=== PATIENT | female | born 1940 | race Caucasian/White ===

== ENCOUNTER 2019-02-15 12:46 | Outpatient (CLI) | payer MEDICARE, BC ==
--- NOTE | 2019-02-15 16:10 | XRAY Report ---
Reason: PAIN IN RIGHT ANKLE AND JOINT OF FOOT Procedure Date: 02/15/2019 Accession Number: [id number] / [id number] Procedure: XRN - Foot 3 View RT CPT Code: FULL RESULT: EXAM: RIGHT FOOT RADIOGRAPHY EXAM DATE: 02/15/2019 01:14 PM. CLINICAL HISTORY: Pain in right ankle and joint of foot. COMPARISON: None. TECHNIQUE: 3 views. FINDINGS: Bones: Mild inferior calcaneal spurring is noted. No fractures or bone lesions. Joints: There is mild joint space narrowing of the first metatarsophalangeal articulation. No subluxation. Soft Tissues: Normal. No soft tissue swelling. IMPRESSION: Normal foot radiography. RADIA
--- NOTE | 2019-02-15 16:15 | XRAY Report ---
Reason: PAIN IN RIGHT ANKLE AND JOINT OF FOOT Procedure Date: 02/15/2019 Accession Number: [id number] / [id number] Procedure: XRN - Ankle 3 View RT CPT Code: FULL RESULT: EXAM: RIGHT ANKLE RADIOGRAPHY EXAM DATE: 02/15/2019 01:18 PM. CLINICAL HISTORY: PAIN IN RIGHT ANKLE AND JOINT OF FOOT. COMPARISON: FOOT 3 VIEW RT 02/15/2019 1:14 PM. TECHNIQUE: 3 views. FINDINGS: Bones: Mild inferior calcaneal spurring. No fractures or bone lesions. Joints: Normal. No effusion. No subluxations. The ankle mortise is normally aligned. Soft Tissues: Normal. No soft tissue swelling. IMPRESSION: No acute fracture or dislocation of the ankle. RADIA
== END 2019-02-15 12:47 | disposition home or self-care (01) ==
LOC: DI.N 12:46
PROVIDERS: ATTEND Family Medicine
DX: M25.571 Pain in right ankle and joints of right foot (principal)

== ENCOUNTER 2020-05-18 14:12 | Outpatient (CLI) | payer MEDICARE, BC | END 2020-05-18 14:13 | disposition critical access hospital (66) | LOC: EMS 14:12 | PROVIDERS: ATTEND Surgery | DX: M54.9 Dorsalgia, unspecified (principal); M79.605 Pain in left leg | CPT/HCPCS: A0425; A0429 ==

== ENCOUNTER 2020-05-18 14:34 | Emergency (ER) | payer MEDICARE, BC ==
[2020-05-18] MEDS ORDERED: KETOROLAC 60 MG/2 ML VIAL IM STA (15:56)
--- NOTE | 2020-05-18 15:59 | ED Physician Documentation ---
History of Present Illness - Stated complaint Stated Complaint: SCIATICA - Chief complaint Chief Complaint: Back Pain - Additonal information Additional information: 79-year-old female comes emergency department for evaluation of what she calls her sciatica pain. For the last 3 days that she has been having pain that originates in her left knee and radiates up the back and down the leg. She says that this is a typical presentation of sciatica for her. Her primary care provider has prescribed tramadol which she has been using but has found no relief. She is having increasing difficulty walking and is now using a cane to walk. She denies any recent falls or trauma. No saddle anesthesia. No history of spinal instrumentation. No history of blood clots or cancer. She denies any urinary symptoms bowel or bladder incontinence. She states that she has had multiple x-rays of her spine that show significant arthritis. She also says that she has arthritis in her knees and ankles as well. She is a morbidly obese woman at baseline. Review of Systems Constitutional: reports: Reviewed and negative Ears: reports: Reviewed and negative Nose: reports: Reviewed and negative Throat: reports: Reviewed and negative Cardiac: reports: Reviewed and negative GI: reports: Reviewed and negative : reports: Reviewed and negative Skin: reports: Reviewed and negative Musculoskeletal: reports: Back pain, Extremity pain Neurologic: reports: Reviewed and negative Psychiatric: reports: Reviewed and negative PD PAST MEDICAL HISTORY - Present Medications Home Medications: Ambulatory Orders Medication Instructions Recorded Confirmed Lovastatin 05/18/20 Omeprazole 40 mg PO DAILY 05/18/20 05/18/20 predniSONE [Deltasone] 40 mg PO DAILY #8 tab 05/18/20 traMADol [Ultram] 50 mg PO QID 05/18/20 05/18/20 - Allergies Allergies/Adverse Reactions: Allergies Allergy/AdvReac Type Severity Reaction Status Date / Time meperidine [From Demerol] Allergy Cramps Verified 05/18/20 14:37 PD ED PE EXPANDED - General General: Alert, No acute distress, Other (morbid obesity) - Neck Neck: Supple w/out meningeal sx. No: Adenopathy - Back Back: Soft tissue tenderness (left lower paraspinous . difficult exam secondary to body habitus), Other (Antalgic gait. Using a cane to ambulate but it is unassisted.). No: Vertebral tenderness - Derm Derm: Normal color. No: Rash - Extremities Extremities: Left knee (Normal flexion and extension without laxity. No pain on passive range of motion. Some pain when ambulating using a cane.) - Neuro Neuro: Alert and Oriented X 3, CNII-XII intact Results - Vitals Vitals: Vital Signs - 24 hr 05/18/20 14:38 Temperature 37.0 C Heart Rate 77 Respiratory 19 Rate Blood Pressure 134/101 H O2 Saturation 100 Oxygen O2 Source Room air - Rads (name of study) left knee Radiology: Final report received (no acute findings) PD MEDICAL DECISION MAKING - ED course Complexity details: reviewed results, re-evaluated patient, considered differential, d/w patient ED course: 79-year-old female presents to the emergency department for evaluation of left knee pain that radiates both down the leg and up to her low back. She describes this as sciatica and has presented in this way in the past. She has no red flags for back pain. She is quite ambulatory here in the emergency department using a walker. She was given an injection of Toradol with moderate relief of pain. My suspicion however is that she likely does have a musculoskeletal sciatica component versus developing arthritis in the left knee. She is quite an obese woman. There is no indication for lumbar imaging today in the emergency department. No midline spinous process pain was elicited. She has no red flags I will prescribe her prednisone to be taken for the next 4 days. While she is taking this she is to avoid any other NSAID use. She may continue to take the Tylenol at home and alternate with tramadol. She reports that she has very close follow-up with her primary care provider next week. Emergent return p recautions were discussed Departure - Departure Disposition: Home, Self Care Clinical Impression: Left knee pain Left low back pain Qualifiers: Chronicity: acute Sciatica presence: unspecified whether sciatica present Qualified Code(s): M54.5 - Low back pain Condition: Stable Record reviewed to determine appropriate education?: Yes Follow-Up: Montse Guerra MD [Primary Care Provider] - Prescriptions: predniSONE [Deltasone] 40 mg PO DAILY #8 tab Comments: Tony you may have both a component of left knee arthritis as well as sciatica. Please fill the prescription for the prednisone and take daily for 4 days. While taking the prednisone do not take another NSAID medication like Aleve naproxen or ibuprofen. You may continue to alternate the Tylenol and tramadol at home. Please continue to follow-up next week with your primary care doctor as already scheduled.
--- NOTE | 2020-05-18 16:29 | XRAY Report ---
PROCEDURE: Knee 2 View LT INDICATIONS: pain in k nee TECHNIQUE: 2 views of the left knee(s) were acquired. COMPARISON: None. FINDINGS: Bones: No fractures or dislocations. No suspicious bony lesions. Soft tissues: No joint effusion. No suspicious soft tissue calcifications. IMPRESSION: No trauma found. No effusion identified. Reviewed by: Pantera Rand MD on 05/18/2020 4:28 PM [facility] Approved by: Pantera Rand MD on 05/18/2020 4:28 PM [facility] Station ID: [id number]
[2020-05-18 17:19] VITALS: BP 134/98
== END 2020-05-18 17:19 | disposition home or self-care (01) ==
LOC: EDUNIT# → ED 14:34
DX: M25.562 Pain in left knee (principal); M54.5 Low back pain; E66.9 Obesity, unspecified
CPT/HCPCS: 96372; 99283; 99284

== ENCOUNTER 2020-10-09 16:41 | Outpatient (CLI) | payer MEDICARE, BC | END 2020-10-09 16:42 | disposition home or self-care (01) | LOC: COV 16:41 | PROVIDERS: ATTEND Ophthalmology | DX: Z01.812 Encounter for preprocedural laboratory examination (principal); H25.811 Combined forms of age-related cataract, right eye; E11.9 Type 2 diabetes mellitus without complications; Z20.822 Contact with and (suspected) exposure to COVID-19 ==

== ENCOUNTER 2020-10-12 06:21 | Day surgery (SDC) | payer MEDICARE, BC ==
[2020-10-12] MEDS ORDERED: PROPARACAINE 0.5% OPHTH DROPS 15 ML ONE (06:23)
[2020-10-12] MEDS ORDERED: PHENYLEPHRINE 2.5% OPHTH 2 ML DROPS ONE (06:23)
[2020-10-12] MEDS ORDERED: KETOROLAC 0.45% OPHTH DROPS ONE (06:23)
[2020-10-12] MEDS ORDERED: LACTATED RINGERS 500 ML IV ONE ×2 (06:28→08:01)
[2020-10-12] MEDS ORDERED: CYCLOPENTOLATE 2% OPHTH DROPS 2 ML RIGHTEYE ONE (06:39)
[2020-10-12] MEDS ORDERED: TRIAMCIN/MOXIFLOX OPHTHALMIC 0.6 ML VIAL IO ONE ×2 (07:10→07:49)
[2020-10-12] MEDS ORDERED: BSS/LIDOCAINE/EPINEPHRINE 1 ML SYRINGE ONE (07:10)
[2020-10-12] MEDS ORDERED: BRIMONIDINE 0.2% OPHTH DROPS 5 ML ONE (07:10)
[2020-10-12] MEDS ORDERED: TIMOLOL 0.5% OPHTH DROPS ONE (07:10)
[2020-10-12] MEDS ORDERED: VANCOMYCIN OPHTHALMI 8MG/0.8ML 8 MG/0.8 ML SYRINGE IO ONE ×2 (07:10→07:49)
[2020-10-12] MEDS ORDERED: EPINEPHrine 1 MG/ML AMP ONE (07:10)
--- NOTE | 2020-10-12 07:27 | ANESTHESIA ---
Pre-Anesthesia VS, & Labs - Diagnosis right eye senile combined cataract - Procedure right eye cataract extraction with IOL Vital Signs: Temp Pulse Resp BP Pulse Ox 36.9 C 77 13 145/72 H 97 10/12/20 06:46 10/12/20 06:46 10/12/20 06:46 10/12/20 06:46 10/12/20 06:46 Height: 5 ft 2 in Weight (kg): 98.9 kg Body Mass Index: 39.9 BMI Classification: Obese - NPO >8 hours - Is Patient ?: No - Lab Results Current Lab Results: Laboratory Tests 10/12/20 06:45: POC Whole Bld Glucose 128 H Home Medications and Allergies Home Medications: Ambulatory Orders Levothyroxine [Synthroid] 0.25 mcg PO DAILY 10/11/20 Losartan [Cozaar] 50 mg PO DAILY 10/11/20 buPROPion [Wellbutrin Sr] 100 mg PO DAILY 10/11/20 metFORMIN [Glucophage] 500 mg PO DAILY 10/11/20 Lovastatin 10 mg PO DAILY 05/18/20 Omeprazole 40 mg PO DAILY 05/18/20 Levothyroxine [Synthroid] 0.25 mcg PO DAILY 10/11/20 Losartan [Cozaar] 50 mg PO DAILY 10/11/20 buPROPion [Wellbutrin Sr] 100 mg PO DAILY 10/11/20 metFORMIN [Glucophage] 500 mg PO DAILY 10/11/20 Allergies/Adverse Reactions: Allergies Allergy/AdvReac Type Severity Reaction Status Date / Time meperidine [From Demerol] Allergy Cramps Verified 05/18/20 14:37 Anes History & Medical History - Anesthetic History Anesthesia Complications: reports: No previous complications - Medical History Cardiovascular: reports: None Pulmonary: reports: None Gastrointestinal: reports: GERD Urinary: reports: None Neuro: reports: None Musculoskeletal: reports: Osteoarthritis, Chronic back pain Endocrine/Autoimmune: reports: HyPOthyroidism Blood Disorders: reports: None Skin: reports: None Smoking Status: Never smoker Psychosocial: reports: No issues indicated History of Cancer?: No - Surgical History General: reports: Appendectomy Eyes Ears Nose Throat (EENT): reports: Tonsil/Adenoidectomy Gynecologic: reports: Tubal ligation, Hysterectomy Exam General: Alert, Oriented x3, Cooperative, No acute distress Dental: WNL Mouth Openin Fingerbreadth Neck Mobility: Normal Mallampati classification: III Thyromental Distance: less than 4 cm Respiratory: Lungs clear, Normal breath sounds, No respiratory distress, No accessory muscle use Cardiovascular: Regular rate, Normal S1, Normal S2, No murmurs Mental/Cognitive Status: Alert/Oriented X3, Normal for patient Plan Anesthesia Type: MAC Consent for Procedure(s) Verified and Reviewed: Yes Code Status: Attempt Resuscitation ASA classification: 2-Mild systemic disease Is this case an emergency?: No
[2020-10-12] MEDS ORDERED: MIDAZOLAM 2 MG/2 ML VIAL ONE (07:37)
[2020-10-12] MEDS ORDERED: BRIMONIDINE 0.2% OPHTH DROPS 5 ML OPTH ONE (07:47)
[2020-10-12] MEDS ORDERED: TIMOLOL 0.5% OPHTH DROPS OPTH ONE (07:48)
[2020-10-12] MEDS ORDERED: EPINEPHrine 1 MG/ML AMP IR ONE (07:48)
[2020-10-12] MEDS ORDERED: BSS/LIDOCAINE/EPINEPHRINE 1 ML SYRINGE IO ONE (07:48)
[2020-10-12] MEDS ORDERED: CHONDR SULF/HYALURONATE SYRINGE IO ONE (07:48)
[2020-10-12] MEDS ORDERED: PROPARACAINE 0.5% OPHTH DROPS 15 ML EACHEYE ONE (07:49)
[2020-10-12 08:12] VITALS: BP 152/64
--- NOTE | 2020-10-12 08:16 | OPERATIVE REPORT ---
Operative Report - Other Other Information/Narrative: Date of Surgery: 10/12/20 Preop Dx: Visually significant cataract right eye. This was the first cataract surgery. Postop Dx: Same Procedure: Phacoemulsification with posterior chamber intraocular lens implant right eye Surgeon: Dr. Petros Lawson Anesthesia: Monitored anesthesia care Complications: None Operative Indications: This is a 80-year-old F with progressive vision loss in the right eye due to 2+ nuclear sclerotic and 3+ cortical cataract. Best corrected visual acuity was 20/30 with glare to 20/800 vision in the right eye. Indications for surgery were: - Overall decrease in vision - Difficulty seeing words, closed captions, or game scores on TV - Difficulty seeing street signs - Difficulty driving at night because of headlights from other vehicles - Difficulty with glare or bright lights in any situation The patient was consented at length concerning the risks and benefits of cataract surgery after which the patient expressed a desire to proceed with surgery. Operative Procedure: The patient was taken into OR#3 and placed under monitored anesthesia care. A surgical time-out was conducted confirming correct patient, correct procedure, and correct surgical site. The patient was given topical anesthesia and then prepped and draped in the usual sterile fashion. The eye was entered at the 6 and 3 oclock positions. Intracameral Shugarcaine was injected into the anterior chamber followed by a dispersive viscoelastic. A continuous-tear curvilinear capsulorhexis was performed. The nucleus was hydrodissected and phacoemulsified. The cortex was evacuated using automated infusion and aspiration. A cohesive viscoelastic was injected into the capsular bag and a 23.5 diopter intraocular lens was inserted into the bag. Infusion and aspiration were used to evacuate the viscoelastic materials from the eye. The wounds were hydrated and the eye inflated to physiologic pressure using balanced salt solution. Approximately 0.25ml of a mixture of triamcinolone and moxifloxacin was injected trans-sclerally into the vitreous in the inferotemporal quadrant using a 30 gauge cannula. An additional 0.55ml of a mixture of triamcinolone, moxifloxacin, and vancomycin was injected subconjunctivally in the superior quadrant for infection and inflammation prophylaxis. Wound integrity was checked with Weck-Kristyn sponges. The patient was taken from the operating room in good condition and given post-op instructions.
--- NOTE | 2020-10-12 12:10 | ANESTHESIA POST OP EVALUATION ---
Anesthesia Post Eval - Post Anesthesia Eval Vitals: Last Vital Signs Temp 36.4 C L 10/12/20 08:11 Pulse 69 10/12/20 08:11 Resp 16 10/12/20 08:11 BP 152/64 H 10/12/20 08:11 Pulse Ox 98 10/12/20 08:11 CV Function Including HR & BP: Stable Pain Control: Satisfactory Nausea & Vomiting: Negative Mental Status: Baseline Respiratory Status: Airway Patent Hydration Status: Satisfactory Anesthesia Complications: None
== END 2020-10-12 06:22 | disposition home or self-care (01) ==
LOC: SDS 06:21
PROVIDERS: ATTEND Ophthalmology
DX: E11.36 Type 2 diabetes mellitus with diabetic cataract (principal); H25.811 Combined forms of age-related cataract, right eye; E66.9 Obesity, unspecified; Z68.39 Body mass index [BMI] 39.0-39.9, adult; Z79.84 Long term (current) use of oral hypoglycemic drugs; E03.9 Hypothyroidism, unspecified
CPT/HCPCS: 66984; A9270; J3490; J7120

== ENCOUNTER 2021-03-01 06:21 | Day surgery (SDC) | payer MEDICARE, BC ==
[~2021-03-01 06:21] MED LIST: CYCLOPENTOLATE 1% OPHTH DROPS 2 ML ONE; KETOROLAC 0.45% OPHTH DROPS ONE; PHENYLEPHRINE 2.5% OPHTH 2 ML DROPS ONE; PROPARACAINE 0.5% OPHTH DROPS 15 ML ONE
[2021-03-01] MEDS ORDERED: LACTATED RINGERS 1,000 ML IV ONE ×2 (06:50→08:03)
[2021-03-01] MEDS ORDERED: BRIMONIDINE 0.2% OPHTH DROPS 5 ML ONE (07:14)
[2021-03-01] MEDS ORDERED: EPINEPHrine 1 MG/ML AMP ONE (07:14)
[2021-03-01] MEDS ORDERED: TRIAMCIN/MOXIFLOX OPHTHALMIC 0.6 ML VIAL IO ONE ×2 (07:14→07:39)
[2021-03-01] MEDS ORDERED: TIMOLOL 0.5% OPHTH DROPS ONE (07:14)
[2021-03-01] MEDS ORDERED: MIDAZOLAM 2 MG/2 ML VIAL ONE (07:14)
[2021-03-01] MEDS ORDERED: BSS/LIDOCAINE/EPINEPHRINE 1 ML SYRINGE ONE (07:15)
[2021-03-01] MEDS ORDERED: VANCOMYCIN OPHTHALMI 8MG/0.8ML 8 MG/0.8 ML SYRINGE IO ONE ×2 (07:15→07:39)
--- NOTE | 2021-03-01 07:16 | ANESTHESIA ---
Pre-Anesthesia VS, & Labs - Diagnosis Left cataract - Procedure L PhacoIOL Vital Signs: Temp Pulse Resp BP Pulse Ox 36.4 C L 78 16 148/84 H 97 03/01/21 06:38 03/01/21 06:38 03/01/21 06:38 03/01/21 06:38 03/01/21 06:38 Height: 5 ft 2 in Weight (kg): 97.4 kg Body Mass Index: 39.2 BMI Classification: Obese - NPO >8 hours - Is Patient ?: No - Lab Results Current Lab Results: Laboratory Tests 03/01/21 06:48: POC Whole Bld Glucose 136 H Home Medications and Allergies Lovastatin 10 mg PO DAILY 05/18/20 Omeprazole 40 mg PO DAILY 05/18/20 Levothyroxine [Synthroid] 0.25 mcg PO DAILY 10/11/20 Losartan [Cozaar] 50 mg PO DAILY 10/11/20 buPROPion [Wellbutrin Sr] 100 mg PO DAILY 10/11/20 metFORMIN [Glucophage] 500 mg PO DAILY 10/11/20 Allergies/Adverse Reactions: Allergies Allergy/AdvReac Type Severity Reaction Status Date / Time meperidine [From Demerol] Allergy Cramps Verified 05/18/20 14:37 Anes History & Medical History - Anesthetic History Anesthesia Complications: reports: No previous complications Family history of Anesthesia Complications: Denies Family history of Malignant Hyperthermia: Denies - Medical History Cardiovascular: reports: Hypertension Pulmonary: reports: None Gastrointestinal: reports: None Urinary: reports: None Neuro: reports: None Musculoskeletal: reports: None Endocrine/Autoimmune: reports: HyPOthyroidism Blood Disorders: reports: None Smoking Status: Never smoker - Surgical History General: reports: Appendectomy Eyes Ears Nose Throat (EENT): reports: Tonsil/Adenoidectomy Gynecologic: reports: Tubal ligation, Hysterectomy Exam General: Alert, Oriented x3 Dental: WNL Mouth Openin Fingerbreadth Neck Mobility: Normal Mallampati classification: III Thyromental Distance: 4-6 cm Respiratory: Lungs clear Cardiovascular: Regular rate Plan Anesthesia Type: MAC Consent for Procedure(s) Verified and Reviewed: Yes Code Status: Attempt Resuscitation ASA classification: 2-Mild systemic disease Is this case an emergency?: No
[2021-03-01] MEDS ORDERED: BRIMONIDINE 0.2% OPHTH DROPS 5 ML OPTH ONE (07:38)
[2021-03-01] MEDS ORDERED: TIMOLOL 0.5% OPHTH DROPS OPTH ONE (07:38)
[2021-03-01] MEDS ORDERED: EPINEPHrine 1 MG/ML AMP IR ONE (07:38)
[2021-03-01] MEDS ORDERED: PROPARACAINE 0.5% OPHTH DROPS 15 ML EACHEYE ONE (07:39)
[2021-03-01] MEDS ORDERED: BSS/LIDOCAINE/EPINEPHRINE 1 ML SYRINGE IO ONE (07:39)
--- NOTE | 2021-03-01 07:56 | OPERATIVE REPORT ---
Operative Report - Other Other Information/Narrative: Date of Surgery: 03/01/21 Preop Dx: Visually significant cataract left eye. Cataract surgery was performed in the right eye on . Postop Dx: Same Procedure: Phacoemulsification with posterior chamber intraocular lens implant left eye Surgeon: Dr. Petros Lawson Anesthesia: Monitored anesthesia care Complications: None Operative Indications: This is a 80-year-old F with progressive vision loss in the left eye due to 2-3+ nuclear sclerotic and 2-3+ cortical cataract. Best corrected visual acuity was 20/30 with glare to 20/70 vision in the left eye. Indications for surgery were: - Overall decrease in vision - Difficulty seeing words on a computer screen - Difficulty reading - Difficulty seeing words, closed captions, or game scores on TV - Difficulty seeing street signs - Difficulty driving in low light or at night - Difficulty driving at night because of headlights from other vehicles - Difficulty with glare or bright lights in any situation The patient was consented at length concerning the risks and benefits of cataract surgery after which the patient expressed a desire to proceed with surgery. Operative Procedure: The patient was taken into OR#3 and placed under monitored anesthesia care. A surgical time-out was conducted confirming correct patient, correct procedure, and correct surgical site. The patient was given topical anesthesia and then prepped and draped in the usual sterile fashion. The eye was entered at the 6 and 3 oclock positions. Intracameral Shugarcaine was injected into the anterior chamber followed by a dispersive viscoelastic. A continuous-tear curvilinear capsulorhexis was performed. The nucleus was hydrodi ssected and phacoemulsified. The cortex was evacuated using automated infusion and aspiration. A cohesive viscoelastic was injected into the capsular bag and a 23.5 diopter intraocular lens was inserted into the bag. Infusion and aspiration were used to evacuate the viscoelastic materials from the eye. The wounds were hydrated and the eye inflated to physiologic pressure using balanced salt solution. Approximately 0.25ml of a mixture of triamcinolone and moxifloxacin was injected trans-sclerally into the vitreous in the inferotemporal quadrant using a 30 gauge cannula. An additional 0.55ml of a mixture of triamcinolone, moxifloxacin, and vancomycin was injected subconjunctivally in the superior quadrant for infection and inflammation prophylaxis. Wound integrity was checked with Weck-Kristyn sponges. The patient was taken from the operating room in good condition and given post-op instructions.
[2021-03-01 08:03] VITALS: BP 154/59
== END 2021-03-01 06:22 | disposition home or self-care (01) ==
LOC: SDS 06:21
PROVIDERS: ATTEND Ophthalmology
DX: E11.36 Type 2 diabetes mellitus with diabetic cataract (principal); H25.812 Combined forms of age-related cataract, left eye; Z79.84 Long term (current) use of oral hypoglycemic drugs; Z98.41 Cataract extraction status, right eye; E66.9 Obesity, unspecified; Z68.39 Body mass index [BMI] 39.0-39.9, adult; E03.9 Hypothyroidism, unspecified
CPT/HCPCS: 66984; A9270; J3490; J7120

== ENCOUNTER 2021-12-28 14:49 | Outpatient (CLI) | payer MEDICARE, BC ==
--- NOTE | 2021-12-28 17:07 | Ultrasound Report ---
PROCEDURE: Duplex Lwr Ext Arterial Bilat INDICATIONS: RT HIP PAIN, NO PULSES APPRECIATED IN LOWER EXTREM TECHNIQUE: Color and pulse Doppler interrogation was performed of both lower extremity arterial systems, with im age documentation. COMPARISON: None FINDINGS: Right lower extremity: Common femoral artery: 103 cm/sec, with triphasic flow. Deep femoral artery: 75 cm/sec, with monophasic flow. Proximal superficial femoral artery: 117 cm/sec, with biphasic flow. Mid superficial femoral artery: 112 cm/sec, with biphasic flow. Distal superficial femoral artery: 107 cm/sec, with biphasic flow. Popliteal artery: 88 cm/sec, with I phasic flow. Posterior tibial artery: 74 cm/sec, with biphasic flow. Anterior tibial artery/dorsalis pedis: 79/25 cm/sec, with I phasic/monophasic flow. Woodruff-scale imaging description: Scattered plaque throughout the right lower extremity Left lower extremity: Common femoral artery: 126 cm/sec, with I phasic flow. Deep femoral artery: 71 cm/sec, with biphasic flow. Proximal superficial femoral artery: 5 cm/sec, with I phasic flow. Mid superficial femoral artery: No 4 cm/sec, with biphasic flow. Distal superficial femoral artery: 53 cm/sec, with biphasic flow. Popliteal artery: 74 cm/sec, with I phasic flow. Posterior tibial artery: 14 cm/sec, with I phasic flow. Anterior tibial artery/dorsalis pedis: 74/19 cm/sec, with biphasic flow. Woodruff-scale imaging description: Scattered plaque throughout the left lower extremity IMPRESSION: 1. Multiphasic waveforms throughout both lower extremities with no focal velocity elevations. These f indings suggest no significant focal stenosis. 2. Diffuse scattered plaque in both lower extremities. Reviewed by: Alexis Alejandre on 12/28/2021 5:05 PM PDT Approved by: Alexis Alejandre on 12/28/2021 5:05 PM PDT Station ID: [id number]
--- NOTE | 2021-12-28 17:27 | XRAY Report ---
PROCEDURE: Hip w/Pelvis 2-3V RT INDICATIONS: RT HIP PAIN, NO PULSES APPRECIATED IN LOWER EXTREM TECHNIQUE: AP pelvis with lateral view(s) of the right hip(s). COMPARISON: None. FINDINGS: Bones: No fractures or dislocations. Pelvic ring appears intact. No suspicious bony lesions. Ther e is moderate to severe bilateral degenerative hip joint space narrowing. Minimal paratracheal or ost eophytes. No erosions. Degenerative changes are present within the lower lumbar spine. Soft tissues: The visualized bowel gas pattern is normal. No suspicious soft tissue calcifications. IMPRESSION: Bilateral hip arthritis as above. Reviewed by: Radha Krishna MD on 12/28/2021 5:26 PM PDT Approved by: Radha Krishna MD on 12/28/2021 5:26 PM PDT Station ID: [id number]
== END 2021-12-28 14:50 | disposition home or self-care (01) ==
LOC: DI 14:49
PROVIDERS: ATTEND Physician Assistant
DX: I70.209 Unspecified atherosclerosis of native arteries of extremities, unspecified extremity (principal); M16.0 Bilateral primary osteoarthritis of hip
CPT/HCPCS: 93925

== ENCOUNTER 2022-01-01 14:09 | Outpatient (CLI) | payer MEDICARE, BC ==
--- NOTE | 2022-01-01 17:12 | DEXA Report ---
PROCEDURE: Dexa Spine and/or Hip INDICATIONS: OSTEOPENIA, POST MENOPAUSAL TECHNIQUE: Dual energy x-ray absorptiometry (DXA) was performed on a [employer] System. Regions measur ed are the AP Spine, femoral neck, and if needed forearm. COMPARISON: None. FINDINGS: Lumbar Spine: Bone Mineral Density 1.203 g/cm/cm,T score 0.2, normal Left Hip: Bone Mineral Density 0.903 g/cm/cm,T score -0.8, normal Left Femoral Neck: Bone Mineral Density 0.740 g/cm/cm, T score -2.1, osteopenia (T score greater or equal to -1.0: NORMAL) (T score from -1.1 to -2.4: OSTEOPENIA) (T score less than or equal to -2.5 to: OSTEOPOROSIS) Impression: Left femoral neck osteopenia Patients with diagnosis of osteoporosis or osteopenia should have regular bone mineral density assess ment. For those eligible for Medicare, routine testing is allowed once every 2 years. Testing frequ ency can be increased for patients who have rapidly progressing disease or for those who are receivin g medical therapy to restore bone mass. Reviewed by: Tomer Mai MD on 01/01/2022 4:11 PM [facility] Approved by: Tomer Mai MD on 01/01/2022 4:11 PM [facility] Station ID: [id number]
== END 2022-01-01 14:10 | disposition home or self-care (01) ==
LOC: DI 14:09
PROVIDERS: ATTEND Physician Assistant
DX: M85.88 Other specified disorders of bone density and structure, other site (principal)

== ENCOUNTER 2022-07-07 12:20 | Outpatient (CLI) | payer MEDICARE, BC ==
--- NOTE | 2022-07-08 10:55 | XRAY Report ---
PROCEDURE: Lumbar Spine 2 View INDICATIONS: COCCYX PAIN TECHNIQUE: 2 views of the lumbar spine were acquired. COMPARISON: None. FINDINGS: Bones: 5 [id number] vertebrae are present. Slight leftward curvature of the spine. No vertebral body compression fractures. No suspicious bony lesions. Mild disc height loss at all levels. Facet arthrosis L3-S1. Soft tissues: Overlying bowel gas pattern is normal. No suspicious soft tissue calcifications. IMPRESSION: Mild, multilevel degenerative disc disease and moderate lower lumbar facet arthrosis. Reviewed by: Pernell Winters on 07/08/2022 10:53 AM [facility] Approved by: Pernell Winters on 07/08/2022 10:53 AM [facility] Station ID: [id number]
--- NOTE | 2022-07-08 10:55 | XRAY Report ---
PROCEDURE: Sacrum/Coccyx INDICATIONS: COCCYX PAIN TECHNIQUE: 3 views of the sacrum and coccyx acquired. COMPARISON: None FINDINGS: Bones: No fractures or dislocations. No suspicious bony lesions. Soft tissues: Visualized bowel gas pattern is normal. No suspicious soft tissue densities. IMPRESSION: No acute bony abnormality. Reviewed by: Pernell Winters on 07/08/2022 10:54 AM [facility] Approved by: Pernell Winters on 07/08/2022 10:54 AM [facility] Station ID: [id number]
== END 2022-07-07 12:21 | disposition home or self-care (01) ==
LOC: DI 12:20
PROVIDERS: ATTEND Physician Assistant
DX: M53.3 Sacrococcygeal disorders, not elsewhere classified (principal); M51.36 Other intervertebral disc degeneration, lumbar region; M51.37 Other intervertebral disc degeneration, lumbosacral region; M47.817 Spondylosis without myelopathy or radiculopathy, lumbosacral region

== ENCOUNTER 2023-09-25 14:26 | Outpatient (CLI) | payer MEDICARE, BC | END 2023-09-25 14:27 | disposition home or self-care (01) | LOC: RT 14:26 | PROVIDERS: ATTEND Physician Assistant | DX: R06.09 Other forms of dyspnea (principal); R53.83 Other fatigue | CPT/HCPCS: 94010; 94727; 94729 ==

== ENCOUNTER 2023-11-13 13:49 | Outpatient (CLI) | payer MEDICARE, BC | END 2023-11-13 13:50 | disposition home or self-care (01) | LOC: DI 13:49 | PROVIDERS: ATTEND Physician Assistant | DX: R01.1 Cardiac murmur, unspecified (principal); R53.83 Other fatigue | CPT/HCPCS: 93307 ==

== ENCOUNTER 2024-01-26 09:39 | Day surgery (SDC) | payer MEDICARE, BC ==
[~2024-01-26 09:39] MED LIST changes: -CYCLOPENTOLATE 1% OPHTH DROPS 2 ML ONE; -KETOROLAC 0.45% OPHTH DROPS ONE; -PHENYLEPHRINE 2.5% OPHTH 2 ML DROPS ONE; -PROPARACAINE 0.5% OPHTH DROPS 15 ML ONE; +ceFAZolin 2 GM VIAL ONE; +metroNIDAZOLE 500 MG/100 ML 500 MG/100 ML BAG ONE
[2024-01-26] MEDS: LACTATED RINGERS 1,000 ML IV ONE ×2 (09:45→13:40)
[2024-01-26] MEDS: ACETAMINOPHEN 500 MG TABLET PO ONE (10:08)
[2024-01-26] MEDS ORDERED: PROPOFOL 500 MG/50 ML 500 MG/50 ML VIAL ONE (11:45)
[2024-01-26] MEDS ORDERED: LIDOCAINE-PF 2% 10 ML AMP SUBQ ONE (11:46)
--- NOTE | 2024-01-26 12:22 | ANESTHESIA ---
Pre-Anesthesia VS, & Labs - Diagnosis rectal fissure, internal/external hemorrhoids - Procedure excicional hemorrhoidectomy Vital Signs: Temp Pulse Resp BP Pulse Ox O2 Flow Rate 36.6 C 81 13 147/79 H 96 01/26/24 10:14 01/26/24 10:14 01/26/24 10:14 01/26/24 10:14 01/26/24 10:14 Height: 5 ft 2 in Weight (kg): 99.2 kg Body Mass Index: 39.9 BMI Classification: Obese - NPO >8 hours - Is Patient ?: No - Lab Results Lab results reviewed: Yes Home Medications and Allergies Home Medications: Ambulatory Orders Acetaminophen [Tylenol] 650 mg PO Q6H PRN 01/19/24 HYDROcod/ACETAM 5/325 [[place] 5/325] 1 tablet PO Q8H PRN 01/19/24 Ibuprofen/Diphenhydramine HCl [Qc Ibuprofen Pm 200-25 mg Sfgl] 1 each PO PRN PRN 01/19/24 Magnesium Carb,Citrate,Oxide [Magnesium Complex] 300 mg PO DAILY 01/19/24 Multivitamin/Iron/Folic Acid [Centrum Women Tablet] 1 tab PO DAILY 01/19/24 Rosuvastatin Calcium 20 mg PO DAILY 01/19/24 Omeprazole 20 mg PO DAILY 05/18/20 Losartan [Cozaar] 50 mg PO DAILY 10/11/20 Acetaminophen [Tylenol] 650 mg PO Q6H PRN 01/19/24 HYDROcod/ACETAM 5/325 [[place] 5/325] 1 tablet PO Q8H PRN 01/19/24 Ibuprofen/Diphenhydramine HCl [Qc Ibuprofen Pm 200-25 mg Sfgl] 1 each PO PRN PRN 01/19/24 Magnesium Carb,Citrate,Oxide [Magnesium Complex] 300 mg PO DAILY 01/19/24 Multivitamin/Iron/Folic Acid [Centrum Women Tablet] 1 tab PO DAILY 01/19/24 Rosuvastatin Calcium 20 mg PO DAILY 01/19/24 Allergies/Adverse Reactions: Allergies Allergy/AdvReac Type Severity Reaction Status Date / Time meperidine [From Demerol] Allergy Cramps Verified 05/18/20 14:37 Anes History & Medical History - Anesthetic History Anesthesia Complications: reports: No previous complications Family history of Anesthesia Complications: Denies Family history of Malignant Hyperthermia: Denies - Medical History Cardiovascular: reports: Hypertension, High cholesterol Pulmonary: reports: None Gastrointestinal: reports: GERD, Hemorrhoids Urinary: reports: None Neuro: reports: None Musculoskeletal: reports: Osteoarthritis, Chronic back pain Endocrine/Autoimmune: reports: None Blood Disorders: reports: None Skin: reports: None Smoking Status: Never smoker - Surgical History General: reports: Appendectomy, Colonoscopy Eyes Ears Nose Throat (EENT): reports: Cataracts, Tonsil/Adenoidectomy Gynecologic: reports: Tubal ligation, Hysterectomy Exam General: Alert, Oriented x3, Cooperative Dental: WNL Mouth Openin Fingerbreadth Neck Mobility: Normal Mallampati classification: II Thyromental Distance: 4-6 cm Respiratory: Lungs clear, Normal breath sounds, No respiratory distress Cardiovascular: Regular rate Neurological: Normal speech Mental/Cognitive Status: Alert/Oriented X3, Normal for patient Cognitive Status: Within normal limits Plan Anesthesia Type: General (LMA backup plan), Total IV Consent for Procedure(s) Verified and Reviewed: Yes Code Status: Attempt Resuscitation ASA classification: 2-Mild systemic disease Is this case an emergency?: No
[2024-01-26] MEDS ORDERED: ATROPINE ABBOJECT 1 MG/10 ML SYRINGE IVP PRN (12:23)
[2024-01-26] MEDS ORDERED: MORPHINE 2 MG/ML CARPUJECT IVP PRN (12:23)
[2024-01-26] MEDS ORDERED: ONDANSETRON 4 MG/2 ML VIAL IVP PRN ×2 (12:23→14:27)
[2024-01-26] MEDS ORDERED: NALOXONE 0.4 MG/ML VIAL IVP PRN (12:23)
[2024-01-26] MEDS ORDERED: ePHEDrine 50 MG/ML VIAL IVP PRN (12:23)
[2024-01-26] MEDS ORDERED: HYDROmorphone 0.5 MG/0.5 ML SYRINGE IVP PRN (12:23)
[2024-01-26] MEDS ORDERED: METOCLOPRAMIDE 10 MG/2 ML VIAL IVP PRN (12:23)
[2024-01-26] MEDS ORDERED: LIDOCAINE OINTMENT 5% 35.44 GM TUBE ONE ×2 (12:26→13:42)
[2024-01-26] MEDS ORDERED: lidocaine 1% 20 ML MDV ONE (12:26)
[2024-01-26] MEDS ORDERED: BUPIVACAINE 0.5% PF 10 ML VIAL ONE (12:26)
[2024-01-26] MEDS ORDERED: LIDOCAINE 1%-EPI 1:100000 20 ML MDV ONE (12:28)
[2024-01-26] MEDS ORDERED: MIDAZOLAM 2 MG/2 ML VIAL ONE (12:36)
[2024-01-26] MEDS ORDERED: fentaNYL 100 MCG/2 ML VIAL ONE (12:36)
[2024-01-26] MEDS ORDERED: LACTATED RINGERS 1,000 ML IV SCH (13:00)
[2024-01-26] MEDS: BUPIVACAINE 0.5% PF 10 ML VIAL IM ONE (13:08)
[2024-01-26] MEDS: LIDOCAINE 1%-EPI 1:100000 50 ML VIAL SUBQ ONE (13:09)
[2024-01-26] MEDS: LIDOCAINE OINTMENT 5% 35.44 GM TUBE TOP ONE (13:09)
--- NOTE | 2024-01-26 13:41 | OPERATIVE REPORT ---
Operative Report - General Procedure Date: 01/26/24 Planned Procedure: exam under anesthesia, possible fissurectomy, possible excisional hemorrhoidectomy Pre-Op Diagnosis: chronic fissue, external hemorrhoid Procedure Performed: exam under anesthesia, biopsy of anal lesion Post Op Diagnosis: posterior midline anal mass - Procedure Note Primary Surgeon: Dr. Harleen Lundberg Anesthesia Provider: Jose Martin Gandara CRNA Anesthesia Technique: Local, MAC Pathology: 1. posterior midline anal mass, internal biopsy 2. posterior midline anal mass, external biopsy Estimated Blood Loss (mL): 10 Indications: The patient had a right lateral anal fissure first noted approximately 1 year ago. This initially improved with treatment including fissure ointment, stool softeners, and fiber supplementation. The patient felt her fissure recurred, and then noted a new mass in her posterior midline. The posterior midline mass appeared to be an external hemorrhoid, but was very tender to palpation, so I recommended external hemorrhoidectomy and exam under anesthesia. In clinic, the area was also noted to be more indurated than expected, and I did have some concern for malignancy. We discussed the risks, benefits, and alternatives of the procedure including bleeding, infection, damage to surrounding structures, and the need for further surgeries or procedures. The patient voiced understanding, her questions were answered, and she wished to proceed. A consent was signed by the patient prior to surgery. Findings: 1.Posterior midline mass with associated fissure measuring 2 x 3 cm, biopsied. External component of mass was also biopsied. 2. Very small, 3mm, anterior midline fissure Complications: None - Other Other Information/Narrative: The patient was brought to the operative room and placed in the supine position. Preop antibiotics and ERAS medications were given. Anesthesia was induced to the appropriate level of consciousness. The patient was then placed in lithotomy position and prepped and draped in the usual sterile fashion. A preop surgical timeout was performed. Next, a servando field block and bilateral pudendal nerve block was performed using 0.25% Marcaine with epinephrine mixed 50-50 with 2% lidocaine plain. A total of 30 mL of local were used. Then, a well-lubricated, small Hill-Sanchez retractor was placed. Then a well-lubricated medium sized Hill-Sanchez retractor was placed. The patient was noted to have a very firm mass in the posterior midline with an associated 2 x 3 cm fissure. The internal aspect of the induration did have polypoid features. A portion of the polypoid area was sharply excised and sent to pathology. Next, hemostasis was achieved. The external aspect of the induration appeared more like an external hemorrhoid. This was very bothersome to the patient, and to obtain more tissue for biopsy, the area was excised using a hand-held LigaSure device. This was sent as a separate specimen labeled posterior midline mass, external. Again hemostasis was confirmed. Attention was turned to the anterior aspect of the anal canal and a 3 mm fissure was noted in this location. It was cauterized. Hemostasis was again confirmed. Gelfoam was placed in the anal canal and lidocaine jelly was applied to the area. Additional local was injected in the areas of the excisions. The patient tolerated the procedure well. There were no complications. She was transferred to the recovery room in stable condition.
[2024-01-26 14:10] VITALS: BP 143/65; O2SAT 97
--- NOTE | 2024-01-26 15:24 | ANESTHESIA POST OP EVALUATION ---
Anesthesia Post Eval - Post Anesthesia Eval Vitals: Last Vital Signs Temp 36.8 C 01/26/24 14:01 Pulse 70 01/26/24 14:01 Resp 18 01/26/24 14:01 BP 143/65 H 01/26/24 14:01 Pulse Ox 97 01/26/24 14:01 O2 Flow Rate CV Function Including HR & BP: Stable Pain Control: Satisfactory Nausea & Vomiting: Negative Mental Status: Baseline Respiratory Status: Airway Patent Hydration Status: Satisfactory Anesthesia Complications: None
== END 2024-01-26 09:40 | disposition home or self-care (01) ==
LOC: SDS 09:39
PROVIDERS: ATTEND Surgery
PROC: 0D5Q7ZZ Destruction of Anus, Via Natural or Artificial Opening (ICD-10-PCS; 2024-01-26)
PROC: 0DBQ7ZX Excision of Anus, Via Natural or Artificial Opening, Diagnostic (ICD-10-PCS; principal; 2024-01-26 11:45)
DX: C21.0 Malignant neoplasm of anus, unspecified (principal); K60.1 Chronic anal fissure; E66.9 Obesity, unspecified; Z68.39 Body mass index [BMI] 39.0-39.9, adult; I10 Essential (primary) hypertension
CPT/HCPCS: 46940; 46999; A9270; J3490; J7120

== ENCOUNTER 2024-04-06 15:37 | Inpatient (IN) ==
[2024-04-06] MEDS: SODIUM CHLORIDE 0.9% 1,000 ML IV STA ×4 (18:03→22:00)
[2024-04-06 18:09] LABS: HCT - HEMATOCRIT 33.6 % (37.0-47.0); HGB - HEMOGLOBIN 11.3 g/dL (12.0-16.0); LYMPHOCYTES # (AUTO) 0.1 10^3/uL (1.5-3.5); LYMPHOCYTES % (AUTO) 17.5 %; MEAN CORPUSCULAR HGB CONC 33.6 g/dL (32.0-36.0); MEAN CORPUSCULAR VOLUME 92.1 fL (81.0-99.0); MEAN PLATELET VOLUME 10.8 fL (7.9-10.8); MONOCYTES # (AUTO) 0.2 10^3/uL (0.0-1.0); MONOCYTES % (AUTO) 29.8 %; NEUTROPHILS % (AUTO) 49.2 %; RED BLOOD COUNT 3.65 10^6/uL (4.20-5.40); RED CELL DISTRIBUTION WIDTH 11.7 % (12.0-15.0)
[2024-04-06 18:16] LABS: NEUTROPHILS # (AUTO) 0.3 10^3/uL (1.5-6.6); PLT - PLATELET COUNT 18 10^3/uL (130-450); SLIDE REVIEW? Indicated; WHITE BLOOD COUNT 0.6 x10^3/uL (4.8-10.8)
[2024-04-06 18:23] LABS: ALBUMIN 3.2 g/dL (3.2-5.5); BILIRUBIN,TOTAL 0.9 mg/dL (0.2-1.0); CALCIUM 8.5 mg/dL (8.5-10.3); CREATININE 1.4 mg/dL (0.6-1.3); POTASSIUM 3.9 mmol/L (3.5-4.5); TOTAL PROTEIN 6.4 g/dL (6.4-8.9)
--- NOTE | 2024-04-06 18:33 | XRAY Report ---
PROCEDURE: XR Chest 1V INDICATIONS: Sepsis TECHNIQUE: One view of the chest was acquired. COMPARISON: 02/23/2024, 09/25/2023 FINDINGS: Surgical changes and devices: There is a stable right-sided chest port. Lungs and pleura: On the semiupright images, no large pneumothorax or large pleural effusions can be seen. No focal infiltrates are seen. Mild generalized interstitial prominence can be seen. Low lung volumes can be seen, causing a crowded appearance to the lung markings. Mediastinum: Mediastinal contours appear normal. Heart size is at the upper limits of normal. Bones and chest wall: No suspicious bony lesions. Overlying soft tissues appear unremarkable. IMPRESSION: Low lung volumes with mild generalized pulmonary interstitial prominence. Mild pulmonary edema is jamshid pected. Reviewed by: Robert Roy MD on 04/06/2024 5:32 PM [place] Approved by: Robert Roy MD on 04/06/2024 5:32 PM [facility] Station ID: [id number]
[2024-04-06 18:48] LABS: DIFFERENTIAL COMMENT MANUAL=AUTO DIFF; PLATELET ESTIMATE, MANUAL DECREASED (<130,000) (NORMAL); PLATELET MORPHOLOGY NORMAL APPEARANCE (NORMAL); RBC MORPHOLOGY (MULTIPLE) NORMAL APPEARANCE (NORMAL); WBC MORPHOLOGY (MULTIPLE) 1+ DOHLE BODIES (NORMAL)
--- NOTE | 2024-04-06 19:10 | ED Physician Documentation ---
History of Present Illness Stated complaint Stated Complaint: DIZZY Chief complaint Chief Complaint: General History obtained from History obtained from: Patient and Family History of Present Illness Pain level max: 4 Pain level now: 4 Additonal information Additional information: Patient is an 83-year-old female with a history of anal cancer, currently undergoing chemotherapy and radiation. She states that she fell this morning. Has been feeling increasingly weak. Went to the [facility] clinic and received IV fluids but still was not feeling well so was sent to the emergency department. Here she developed a fever. Has a history of thrombocytopenia. No fevers or chills at home. No nausea or vomiting but does have chronic diarrhea. No abdominal pain. No chest pain. No cough or congestion. Denies any urinary symptoms. Patient states that she has chronic headaches but has a headache currently. No neck or back pain. No numbness or tingling. Review of Systems Constitutional Reports: Malaise Meds/Allgy Home Medications Ambulatory Orders Medication Instructions Recorded Confirmed omeprazole 40 mg capsule,delayed 20 mg PO DAILY 05/18/20 02/23/24 release losartan 50 mg tablet 50 mg PO DAILY 10/11/20 02/23/24 acetaminophen 650 mg rectal 650 mg PO Q6H PRN Pain 01/19/24 02/23/24 suppository ibuprofen 200 mg-diphenhydramine 1 ea PO PRN PRN As Needed Per 01/19/24 02/23/24 HCl 25 mg capsule (Ibuprofen PM) Provider Orders magnesium carb,citrate,oxide 300 mg PO DAILY 01/19/24 02/23/24 (Magnesium Complex) multivitamin-ferrous 1 tab PO DAILY 01/19/24 02/23/24 fumarate-folic acid 18 mg-400 mcg tablet (Centrum Women) rosuvastatin 20 mg tablet 20 mg PO DAILY 01/19/24 02/23/24 lidocaine 5 % topical ointment 1 applic topical QID #35.44 grams 01/26/24 02/23/24 polyethylene glycol 3350 17 17 g PO DAILY #238 grams 01/26/24 02/23/24 gram/dose oral powder sumatriptan succinate PO PRN migraine 02/23/24 ondansetron HCl 8 mg tablet 8 mg PO TID #90 tabs 03/23/24 prochlorperazine maleate 10 mg 10 mg PO TID #90 tabs 03/23/24 tablet (Compazine) oxycodone 5 mg capsule 5 mg PO QDAY PRN pain (scale score 03/24/24 7-10) #35 caps nystatin 100,000 unit/gram topical 1 applic topical QDAY #30 grams 03/31/24 03/31/24 powder triamcinolone acetonide 0.05 % 1 applic topical QDAY #110 grams 03/31/24 03/31/24 topical ointment Allergies Allergies Allergy/AdvReac Type Severity Reaction Status Date / Time meperidine (From Demerol) Allergy Cramps Verified 04/06/24 16:00 [facility] Medical History Medical History (Updated 04/06/24 @ 20:43 by Clark House MD) Rosacea (07/15/22) History of torn meniscus of left knee (07/15/22) Hemorrhoids (07/15/22) Cataract, bilateral (07/15/22) Surgical History Surgical History (Updated 02/18/24 @ 13:17 by Basilio Nick CNA) History of tonsillectomy History of appendectomy H/O: hysterectomy Family History Family History (Updated 02/18/24 @ 13:20 by Basilio Nick CNA) Mother No problems noted. Social History Social History (Updated 02/23/24 @ 08:37 by Tracy Baltazar RN, [facility]) Smoking Status: Never smoker Do you vape?: No Relationship: Do you feel safe in your home environment?: Yes Suffered physical, verbal, emotional, or financial abuse?: No ETOH Use: Wine Frequency: Daily Number of Amount/day: 2 (2 glasses of wine for dinner, last used 4 days ago) Substance Use: denies use Exam Constitutional normal general appearance and no apparent distress HENMT TMs normal bilaterally and oropharynx normal dry lips and tongue Eyes PERRL Neck/C-Spine visual inspection normal Respiratory breath sounds equal bilaterally, normal respiratory effort and clear to auscultation bilaterally Cardiovascular normal heart rate noted and regular rhythm noted Gastrointestinal abdomen normal to inspection, abdomen soft to palpation, nontender to palpation and nondistended Genitourinary no CVA tenderness Extremities no deformity no edema Neurology speech normal Psychiatry mental status grossly normal and oriented x3 Skin skin color normal Results Vitals Vitals: Vital Signs - 24 hr 04/06/24 15:20 04/06/24 16:00 04/06/24 17:29 Temperature 37.6 C 39.1 C H Temperature Source Oral Oral Pulse Rate 110 H 110 H Respiratory Rate 18 18 Blood Pressure 102/65 93/47 L O2 Saturation 93 97 O2 Source Room air Room air Room air Pain Intensity 5 7 04/06/24 18:53 04/06/24 19:33 04/06/24 19:50 Temperature 37.4 C Temperature Source Oral Pulse Rate 101 H 101 H Respiratory Rate 19 16 Blood Pressure 90/57 L 92/60 O2 Saturation 96 97 O2 Source Room air Room air Pain Intensity 5 04/06/24 20:13 Temperature Temperature Source Pulse Rate 103 H Respiratory Rate Blood Pressure 96/48 L O2 Saturation O2 Source Room air Pain Intensity Oxygen O2 Source Room air Labs Labs: Laboratory Tests 04/06/24 04/06/24 04/06/24 17:59 18:43 18:47 WBC 0.6 L* RBC 3.65 L Hgb 11.3 L Hct 33.6 L MCV 92.1 MCH 31.0 MCHC 33.6 RDW 11.7 L Plt Count 18 L* MPV 10.8 Neut # (Auto) 0.3 L* Lymph # (Auto) 0.1 L [place] # (Auto) 0.2 Eos # (Auto) 0.0 Baso # (Auto) 0.0 Absolute Nucleated RBC 0.00 Total Counted [employer] Band Neuts % (Manual) Not Reportable Abnorm Lymph % (Manual) Not Reportable Nucleated RBC % 0.0 Neutrophils # (Manual) Not Reportable Lymphocytes # (Manual) Not Reportable Monocytes # (Manual) Not Reportable Eosinophils # (Manual) Not Reportable Basophils # (Manual) Not Reportable Differential Comment MANUAL=AUTO DIFF Manual Slide Review Indicated WBC Morphology 1+ DOHLE BODIES Platelet Estimate DECREASED (<130,000) Platelet Morphology NORMAL APPEARANCE RBC Morph Micro Appear NORMAL APPEARANCE Sodium 129 L Potassium 3.9 Chloride 98 L Carbon Dioxide 22 Anion Gap 9.0 BUN 23 H Creatinine 1.4 H Estimated GFR (MDRD) 36 L Glucose 171 H Lactic Acid 1.4 Calcium 8.5 Total Bilirubin 0.9 AST 28 ALT 27 Alkaline Phosphatase 68 Total Protein 6.4 Albumin 3.2 Globulin 3.2 Albumin/Globulin Ratio 1.0 Nasal Adenovirus (PCR) NOT DETECTED Nasal B. parapertussis DNA (PCR) NOT DETECTED Nasal Coronavir 229E PCR NOT DETECTED Nasal Coronavir HKU1 PCR NOT DETECTED Nasal Coronavir NL63 PCR NOT DETECTED Nasal Coronavir OC43 PCR NOT DETECTED Nasal Enterovir/Rhinovir PCR NOT DETECTED Nasal Influenza B PCR NOT DETECTED Nasal Influenza A PCR NOT DETECTED Nasal Parainfluen 1 PCR NOT DETECTED Nasal Parainfluen 2 PCR NOT DETECTED Nasal Parainfluen 3 PCR NOT DETECTED Nasal Parainfluen 4 PCR NOT DETECTED Nasal RSV (PCR) NOT DETECTED Nasal B.pertussis DNA PCR NOT DETECTED Nasal C.pneumoniae (PCR) NOT DETECTED Vladimir Human Metapneumo PCR NOT DETECTED Nasal M.pneumoniae (PCR) NOT DETECTED Nasal SARS-CoV-2 (PCR) NOT DETECTED Rads (name of study) cxr: Relevant Findings:: Final report received ct head: Relevant Findings:: Final report received PD Medical Decision Making ED course Complexity details: reviewed results, considered differential, d/w patient, d/w family and d/w php consultant ED course: Patient does not appear toxic. Lactate is normal. She is febrile. She is neutropenic. Blood cultures drawn. Chest x-ray does not show any evidence of pneumonia. Respiratory PCR is negative. She did fall and is thrombocytopenic, therefore head CT was performed. This does not show any acute abnormalities. Was given cefepime, vancomycin and azithromycin. The azithromycin was added as there is mycoplasma pneumonia prevalent in the community currently. Given several liters of IV fluid. Did have soft blood pressures, 90-100 systolic, but normal mentation. Does not need pressors at this time. Will need admission for neutropenic fever. Discussed the case with the nighttime hospitalist who accepts. Urinalysis is pending at the time of admission. This will be followed up by the inpatient team. This document was made in part using voice recognition software. While efforts are made to proofread this document, sound alike and grammatical errors may occur. Discharge Plan Discharge Patient Disposition: 66 [facility] DC/Xfer Condition: Stable Clinical Impression: Fever and neutropenia, Thrombocytopenia Interventions: ED Admission Assessment Last Done: 04/06/24 22:30
[2024-04-06] MEDS: CEFEPIME 2 GM VIAL IVP STA (19:27)
[2024-04-06] MEDS: HYDROmorphone 1 MG/ML CARPUJECT IVP STA (19:33)
[2024-04-06] MEDS ORDERED: VANCOMYCIN 1 GM VIAL ONE (19:39)
[2024-04-06 19:45] LABS: B. PARAPERTUSSIS- RESP PCR PAN NOT DETECTED; B. PERTUSSIS- RESP PCR PANEL NOT DETECTED; C. PNEUMONIAE- RESP PCR PANEL NOT DETECTED; CORONAVIRUS 229E-RESP PCR NOT DETECTED; CORONAVIRUS HKU1-RESP PCR NOT DETECTED; CORONAVIRUS NL63-RESP PCR NOT DETECTED; CORONAVIRUS OC43-RESP PCR NOT DETECTED; HUMAN METAPNEUMOVIRUS NOT DETECTED; INFLUENZA A- RESP PCR PANEL NOT DETECTED; INFLUENZA B - RESP PCR PANEL NOT DETECTED; M. PNEUMONIAE- RESP PCR PANEL NOT DETECTED; PARAINFLUENZA VIRUS 1 NOT DETECTED; PARAINFLUENZA VIRUS 2 NOT DETECTED; PARAINFLUENZA VIRUS 3 NOT DETECTED; PARAINFLUENZA VIRUS 4 NOT DETECTED; RHINOVIRUS/ENTEROVIRUS NOT DETECTED; RSV- RESP PCR PANEL NOT DETECTED; SARS-CoV-2 -RESP PCR PANEL NOT DETECTED
[2024-04-06] MEDS: AZITHROMYCIN INJ 500 MG in SODIUM CHLORIDE 0.9% 250 ML IV STA (20:08)
--- NOTE | 2024-04-06 20:21 | CT Report ---
PROCEDURE: CT Head WO INDICATIONS: fall, head injury, thromboctyopenia (18) TECHNIQUE: Noncontrast 4.5 mm thick angled axial sections acquired from the foramen magnum to the vertex. For r adiation dose reduction, the following was used: automated exposure control, adjustment of mA and/or kV according to patient size. COMPARISON: None. FINDINGS: Image quality: Excellent. CSF spaces: Basal cisterns are patent. No extra-axial fluid collections. Ventricles are normal in size and shape. Brain: No midline shift. No intracranial masses or hemorrhage. Woodruff-white matter interface is norm al. Age-related global volume loss and chronic microvascular ischemic changes. Intracranial atherosc lerotic vascular calcifications. Skull and face: Calvarium and visualized facial bones are intact, without suspicious lesions. Sinuses: Visualized sinuses and mastoids are clear. IMPRESSION: No acute intracranial pathology. Reviewed by: Xavier Enrique MD on 04/06/2024 8:20 PM PST Approved by: Xavier Enrique MD on 04/06/2024 8:20 PM PST Station ID: [id number]
[2024-04-06] MEDS ORDERED: ONDANSETRON ODT 4 MG TABLET TL PRN (20:44)
[2024-04-06] MEDS ORDERED: SODIUM CHLORIDE FLUSH 0.9% 10 ML SYRINGE IVP PRN (20:44)
--- NOTE | 2024-04-06 21:11 | HISTORY & PHYSICAL EXAMINATION ---
Chief Complaint Chief Complaint Chief Complaint: weakness History of Present Illness History of Present Illness HPI Comment/Other: 83 y old female with PMH Anal cancer on radiation and chemo presented to ER due to weakness, diarrhea for 2 days. As per daughter, pt is on radiation therapy 5 times per week and also chemo which was started 2 weeks ago. Pt had diarrhea on Friday which resolved with imodium. Pt also had fall. As per daughter, pt was little confused. Denies cough, chest pain, SOB, sumptoms C/O decreased appetite On presentaion, pt was febrile, tachycardic, hypotensive Labs showed pancytopenia, WBC 0.6, PLT 18, Na129, Tube Rebuilder 1.4 In ER, pt was given IVF and IV cefepime and vanco Pt is admitted yoselin to severe sepsis, neutyropenic fever, dehydartion, hypotesnion, ABEBE Review of Systems Status of ROS: 10 or more systems reviewed and unremarkable except as noted in history and below [facility] Medical History Medical History (Updated 04/06/24 @ 20:43 by Clark House MD) Rosacea (07/15/22) History of torn meniscus of left knee (07/15/22) Hemorrhoids (07/15/22) Cataract, bilateral (07/15/22) Surgical History Surgical History (Updated 02/18/24 @ 13:17 by Basilio Nick CNA) History of tonsillectomy History of appendectomy H/O: hysterectomy Family History Family History (Updated 02/18/24 @ 13:20 by Basilio Nick CNA) Mother No problems noted. Social History Social History (Updated 02/23/24 @ 08:37 by Tracy Baltazar RN, [facility]) Smoking Status: Never smoker Do you vape?: No Relationship: Do you feel safe in your home environment?: Yes Suffered physical, verbal, emotional, or financial abuse?: No ETOH Use: Wine Frequency: Daily Number of Amount/day: 2 (2 glasses of wine for dinner, last used 4 days ago) Substance Use: denies use Meds/Allgy Home Medications Ambulatory Orders Medication Instructions Recorded Confirmed omeprazole 40 mg capsule,delayed 20 mg PO DAILY 05/18/20 02/23/24 release losartan 50 mg tablet 50 mg PO DAILY 10/11/20 02/23/24 acetaminophen 650 mg rectal 650 mg PO Q6H PRN Pain 01/19/24 02/23/24 suppository ibuprofen 200 mg-diphenhydramine 1 ea PO PRN PRN As Needed Per 01/19/24 02/23/24 HCl 25 mg capsule (Ibuprofen PM) Provider Orders magnesium carb,citrate,oxide 300 mg PO DAILY 01/19/24 02/23/24 (Magnesium Complex) multivitamin-ferrous 1 tab PO DAILY 01/19/24 02/23/24 fumarate-folic acid 18 mg-400 mcg tablet (Centrum Women) rosuvastatin 20 mg tablet 20 mg PO DAILY 01/19/24 02/23/24 lidocaine 5 % topical ointment 1 applic topical QID #35.44 grams 01/26/24 02/23/24 polyethylene glycol 3350 17 17 g PO DAILY #238 grams 01/26/24 02/23/24 gram/dose oral powder sumatriptan succinate PO PRN migraine 02/23/24 ondansetron HCl 8 mg tablet 8 mg PO TID #90 tabs 03/23/24 prochlorperazine maleate 10 mg 10 mg PO TID #90 tabs 03/23/24 tablet (Compazine) oxycodone 5 mg capsule 5 mg PO QDAY PRN pain (scale score 03/24/24 7-10) #35 caps nystatin 100,000 unit/gram topical 1 applic topical QDAY #30 grams 03/31/24 03/31/24 powder triamcinolone acetonide 0.05 % 1 applic topical QDAY #110 grams 03/31/24 03/31/24 topical ointment Allergies Allergies Allergy/AdvReac Type Severity Reaction Status Date / Time meperidine (From Demerol) Allergy Cramps Verified 04/06/24 16:00 Exam Constitutional no apparent distress [facility] normocephalic Eyes PERRL Neck/C-Spine visual inspection normal Lymph no lymphadenopathy noted Chest inspection of chest normal Respiratory breath sounds equal bilaterally Cardiovascular normal heart rate noted Gastrointestinal abdomen normal to inspection Extremities normal to inspection Neurology no focal motor deficit noted Skin no rash Conclusion/Plan Problem List (1) Fever and neutropenia: Plan: A: Neutropenic fever Severe sepsis Hypotension Pancytopenia hyponatremia ABEBE Anal cancer on radiation and chemo Plan; Admit in tele Follow cultures Start NS @ 100 cc/h Start cefepime and vanco Repeat CBC, CMP in am DVT prophylaxic: SCD Full code Pt is admitted as inpatient as more than 2 midnight stay is expected Lab Results 04/06/24 17:59 04/06/24 17:59
[2024-04-06] MEDS: VANCOMYCIN INJ 1.25 GM in SODIUM CHLORIDE 0.9% 250 ML IV STA (21:41)
[2024-04-06] MEDS: SODIUM CHLORIDE 0.9% 1,000 ML IV SCH (21:44)
[2024-04-06 22:47] LABS: BILIRUBIN,URINE SMALL (NEGATIVE); GLUCOSE, URINE (UA) NEGATIVE (NEGATIVE); KETONES,URINE (UA) TRACE mg/dL (NEGATIVE); LEUKOCYTE ESTERASE, URINE NEGATIVE (NEGATIVE); NITRITE,URINE POSITIVE (NEGATIVE); OCCULT BLOOD,URINE MODERATE (NEGATIVE); PH,URINE 6.5 PH (5.0-7.5); PROTEIN,URINE 100 mg/dL (NEGATIVE); UROBILINOGEN,URINE 0.2 (NORMAL) E.U./dL (NORMAL)
[2024-04-06 22:49] LABS: CLARITY,URINE CLEAR (CLEAR)
[2024-04-06 22:50] LABS: BACTERIA,URINE Moderate /HPF (None Seen); RBC,URINE 0-5 /HPF (0-5); SQUAMOUS EPITHELIAL CELL,UR FEW Squamous (<= Few)
[2024-04-07] MEDS ORDERED: ZINC OXIDE 20% OINT 30 GM TUBE TOP PRN (00:03)
[2024-04-07] MEDS ORDERED: COD LIVER OIL/ZINC OXIDE 113 GM TUBE TOP PRN (00:03)
[2024-04-07] MEDS: ACETAMINOPHEN 325 MG TABLET PO PRN (00:08)
[2024-04-07] MEDS: SODIUM CHLORIDE FLUSH 0.9% 10 ML SYRINGE IVP SCH (00:11)
--- NOTE | 2024-04-07 03:55 | PROVIDER PROGRESS NOTE ---
Side Splitter Note Side Splitter Note Side Splitter Note: RN paged "Pt admitted for sepsis and neutropenia. PT has had 7 bouts of diarhea this shift, has been taking immodium at home to help with the diarrhea she has from chemo and radiation. Can you please place order for immodium PRN? Thank you!" here for neutropenic fever. currently on empiric abx will seek stool stds to r/o GI infection prior to start Immodium Shelia Tolentino
[2024-04-07 05:40] LABS: BASOPHILS % (AUTO) 1.1 %; HCT - HEMATOCRIT 28.5 % (37.0-47.0); HGB - HEMOGLOBIN 9.4 g/dL (12.0-16.0); MEAN CORPUSCULAR HEMOGLOBIN 30.8 pg (27.0-31.0); MEAN CORPUSCULAR VOLUME 93.4 fL (81.0-99.0); MEAN PLATELET VOLUME 11.1 fL (7.9-10.8); MONOCYTES % (AUTO) 15.9 %; RED BLOOD COUNT 3.05 10^6/uL (4.20-5.40)
[2024-04-07 05:46] LABS: PLT - PLATELET COUNT 17 10^3/uL (130-450); WHITE BLOOD COUNT 0.9 x10^3/uL (4.8-10.8)
[2024-04-07 05:48] LABS: ABNORMAL LYMPHS % (MANUAL) 0 %; BAND NEUTROPHILS % (MANUAL) 0 %
[2024-04-07 05:54] LABS: ALBUMIN 2.6 g/dL (3.2-5.5); BILIRUBIN,TOTAL 0.6 mg/dL (0.2-1.0); CALCIUM 7.4 mg/dL (8.5-10.3); POTASSIUM 4.1 mmol/L (3.5-4.5); TOTAL PROTEIN 5.2 g/dL (6.4-8.9)
[2024-04-07 06:15] LABS: DIFFERENTIAL COMMENT MANUAL DIFFERENTIAL; LYMPHOCYTES # (MANUAL) 0.1 10^3/uL (1.5-3.5); LYMPHOCYTES % (MANUAL) 12 %; MONOCYTES # (MANUAL) 0.3 10^3/uL (0.0-1.0); NEUTROPHILS # (MANUAL) 0.5 10^3/uL (1.5-6.6); PLATELET ESTIMATE, MANUAL DECREASED (<130,000) (NORMAL); PLATELET MORPHOLOGY NORMAL APPEARANCE (NORMAL); RBC MORPHOLOGY (MULTIPLE) NORMAL APPEARANCE (NORMAL); WBC MORPHOLOGY (MULTIPLE) NORMAL APPEARANCE (NORMAL)
[2024-04-07] MEDS: LIDOCAINE OINTMENT 5% 35.44 GM TUBE TOP SCH (08:24)
[2024-04-07] MEDS: NYSTATIN POWDER 15 GM TOP SCH (08:25)
[2024-04-07] MEDS: PANTOPRAZOLE 40 MG TABLET PO SCH (08:25)
[2024-04-07] MEDS: MULTIVITAMIN TABLET PO SCH (08:26)
[2024-04-07] MEDS: LOSARTAN 50 MG TABLET PO SCH (08:26)
--- NOTE | 2024-04-07 10:05 | PROVIDER PROGRESS NOTE ---
Subjective Prog Note Date Prog Note Date: 04/07/24 Subjective Pt reports feeling: Improved Subjective: Feels much better today Current Medications Current Medications Current Medications: Current Medications Generic Name Dose Route Start Last Admin Trade Name Freq PRN Reason Stop Dose Admin Acetaminophen 650 mg 04/06/24 20:44 04/07/24 08:25 Acetaminophen 325 Mg Tablet PO 650 mg Q4HR PRN Administration Pain 1 to 4, or Fever Sodium Chloride 1,000 mls @ 100 mls/hr 04/06/24 21:00 04/07/24 00:11 Normal Saline 0.9% IV 100 mls/hr .Q10H BARB Administration Cefepime HCl 1 gm/ Sodium 100 mls @ 200 mls/hr 04/07/24 18:00 Chloride IV Q24H BARB Vancomycin HCl 1.25 gm/ Sodium 250 mls @ 166.667 mls/hr 04/08/24 19:00 Chloride IV Q48H BARB Lidocaine 1 applic 04/07/24 09:00 04/07/24 08:24 Lidocaine Ointment 5% 35.44 Gm Tube TOP 1 applic QID BARB Administration Losartan Potassium 50 mg 04/07/24 09:00 04/07/24 08:26 Losartan 50 Mg Tablet PO 50 mg DAILY BARB Administration Multi-Ingredient Ointment 1 applic 04/07/24 00:03 Zinc Oxide 20% Oint 30 Gm Tube TOP PRN PRN Skin Care Multivitamins 1 tab 04/07/24 09:00 04/07/24 08:26 Multivitamin Tablet PO 1 tab DAILYWM BARB Administration Nystatin 1 applic 04/07/24 09:00 04/07/24 08:25 Nystatin Powder 15 Gm TOP 1 applic DAILY BARB Administration Ondansetron HCl 4 mg 04/06/24 20:44 Ondansetron Odt 4 Mg Tablet TL Q6HR PRN Nausea / Vomiting Pantoprazole Sodium 40 mg 04/07/24 08:00 04/07/24 08:25 Pantoprazole 40 Mg Tablet PO 40 mg QDAC BARB Administration Sodium Chloride 10 ml 04/06/24 20:44 Sodium Chloride Flush 0.9% 10 Ml Syringe IVP PRN PRN NEEDED PER PROVIDER ORDERS Sodium Chloride 10 ml 04/07/24 01:00 04/07/24 08:04 Sodium Chloride Flush 0.9% 10 Ml Syringe IVP 10 ml 0100,0900,1700 [facility] Administration Triamcinolone Acetonide 1 applic 04/07/24 21:00 Triamcinolone 0.1% Oint 15 Gm Tube TOP HS [facility] Vancomycin HCl 1 each 04/06/24 20:49 Vancomycin: Pharmacy To Dose MC .ONCE PRN PER PHARMACY Zinc Oxide 113 gm 04/07/24 00:03 Cod Liver Oil/Zinc Oxide 113 Gm Tube TOP PRN PRN Skin Care Objective Vital Signs/Intake & Output Reviewed Vital Signs: Yes Vital Signs: Vital Signs x48h Temp Pulse Pulse Resp BP Pulse Ox 04/07/24 08:20 36.7 C 98 H 20 115/48 L 99 04/07/24 04:49 36.5 C 86 22 116/57 L 95 Intake & Output: Intake & Output 04/05/24 04/06/24 04/07/24 04/08/24 05:59 05:59 05:59 05:59 Intake Total 4500 / 4500 Output Total 100 / 100 Balance 4500 / 4500 -100 / -100 Weight (kg) 100 kg Objective General Appearance: positive No acute distress and Alert Eyes Bilateral: positive Normal inspection ENT: positive ENT inspection nml Neck: positive Nml inspection Respiratory: positive Chest non-tender Cardiovascular: positive Regular rate & rhythm and No murmur Abdomen: positive Non-tender Skin: positive Color nml Extremities: positive Non-tender Neurologic/Psychiatric: positive Oriented x3 Lab Results 04/07/24 04:24 04/07/24 04:24 Other Labs: Lab Results x24hrs 04/07/24 04/06/24 04/06/24 Range/Units 04:24 22:30 18:47 WBC 0.9 L* (4.8-10.8) x10^3/uL RBC 3.05 L (4.20-5.40) 10^6/uL Hgb 9.4 L (12.0-16.0) g/dL Hct 28.5 L (37.0-47.0) % MCV 93.4 (81.0-99.0) fL MCH 30.8 (27.0-31.0) pg MCHC 33.0 (32.0-36.0) g/dL RDW 12.0 (12.0-15.0) % Plt Count 17 L* (130-450) 10^3/uL MPV 11.1 H (7.9-10.8) fL Neut # (Auto) Not Reportable (1.5-6.6) 10^3/uL Lymph # (Auto) Not Reportable (1.5-3.5) 10^3/uL [place] # (Auto) Not Reportable (0.0-1.0) 10^3/uL Eos # (Auto) Not Reportable (0.0-0.7) 10^3/uL Baso # (Auto) Not Reportable (0.0-0.1) 10^3/uL Absolute Nucleated RBC Not Reportable x10^3/uL Total Counted 25 Band Neuts % (Manual) 0 Abnorm Lymph % (Manual) 0 Nucleated RBC % Not Reportable /100WBC Neutrophils # (Manual) 0.5 L* Lymphocytes # (Manual) 0.1 L Monocytes # (Manual) 0.3 Eosinophils # (Manual) 0.0 Basophils # (Manual) 0.0 Differential Comment MANUAL DIFFERENTIAL Manual Slide Review WBC Morphology NORMAL APPEARANCE (NORMAL) Platelet Estimate DECREASED (<130,000) (NORMAL) Platelet Morphology NORMAL APPEARANCE (NORMAL) RBC Morph Micro Appear NORMAL APPEARANCE (NORMAL) Sodium 134 L (135-145) mmol/L Potassium 4.1 (3.5-4.5) mmol/L Chloride 107 (101-111) mmol/L Carbon Dioxide 22 (21-32) mmol/L Anion Gap 5.0 L (6-13) BUN 25 H (6-20) mg/dL Creatinine 1.0 (0.6-1.3) mg/dL Estimated GFR (MDRD) 53 L (>89) Glucose 112 H (74-104) mg/dL Lactic Acid (0.5-2.2) mmol/L Calcium 7.4 L (8.5-10.3) mg/dL Total Bilirubin 0.6 (0.2-1.0) mg/dL AST 29 (10-42) IU/L ALT 23 (10-60) IU/L Alkaline Phosphatase 53 (42-121) IU/L Total Protein 5.2 L (6.4-8.9) g/dL Albumin 2.6 L (3.2-5.5) g/dL Globulin 2.6 (2.1-4.2) g/dL Albumin/Globulin Ratio 1.0 (1.0-2.2) Urine Color YELLOW Urine Clarity CLEAR (CLEAR) Urine pH 6.5 (5.0-7.5) PH Ur Specific [place] 1.020 (1.002-1.030) Urine Protein 100 H (NEGATIVE) mg/dL Urine Glucose (UA) NEGATIVE (NEGATIVE) mg/dL Urine Ketones TRACE (NEGATIVE) mg/dL Urine Occult Blood MODERATE H (NEGATIVE) Urine Nitrite POSITIVE H (NEGATIVE) Urine Bilirubin SMALL H (NEGATIVE) Urine Urobilinogen 0.2 (NORMAL) (NORMAL) E.U./dL Ur Leukocyte Esterase NEGATIVE (NEGATIVE) Urine RBC 0-5 (0-5) /HPF Urine WBC 4-5 (0-5) /HPF Ur Squamous Epith Cells FEW Squamous (<= Few) Urine Bacteria Moderate H (None Seen) /HPF Urine Culture Comments INDICATED Nasal Adenovirus (PCR) NOT DETECTED Nasal B. parapertussis DNA (PCR) NOT DETECTED Nasal Coronavir 229E PCR NOT DETECTED Nasal Coronavir HKU1 PCR NOT DETECTED Nasal Coronavir NL63 PCR NOT DETECTED Nasal Coronavir OC43 PCR NOT DETECTED Nasal Enterovir/Rhinovir PCR NOT DETECTED Nasal Influenza B PCR NOT DETECTED Nasal Influenza A PCR NOT DETECTED Nasal Parainfluen 1 PCR NOT DETECTED Nasal Parainfluen 2 PCR NOT DETECTED Nasal Parainfluen 3 PCR NOT DETECTED Nasal Parainfluen 4 PCR NOT DETECTED Nasal RSV (PCR) NOT DETECTED Nasal B.pertussis DNA PCR NOT DETECTED Nasal C.pneumoniae (PCR) NOT DETECTED Vladimir Human Metapneumo PCR NOT DETECTED Nasal M.pneumoniae (PCR) NOT DETECTED Nasal SARS-CoV-2 (PCR) NOT DETECTED 04/06/24 04/06/24 Range/Units 18:43 17:59 WBC 0.6 L* (4.8-10.8) x10^3/uL RBC 3.65 L (4.20-5.40) 10^6/uL Hgb 11.3 L (12.0-16.0) g/dL Hct 33.6 L (37.0-47.0) % MCV 92.1 (81.0-99.0) fL MCH 31.0 (27.0-31.0) pg MCHC 33.6 (32.0-36.0) g/dL RDW 11.7 L (12.0-15.0) % Plt Count 18 L* (130-450) 10^3/uL MPV 10.8 (7.9-10.8) fL Neut # (Auto) 0.3 L* (1.5-6.6) 10^3/uL Lymph # (Auto) 0.1 L (1.5-3.5) 10^3/uL [place] # (Auto) 0.2 (0.0-1.0) 10^3/uL Eos # (Auto) 0.0 (0.0-0.7) 10^3/uL Baso # (Auto) 0.0 (0.0-0.1) 10^3/uL Absolute Nucleated RBC 0.00 x10^3/uL Total Counted SHEET MANAGER Band Neuts % (Manual) Not Reportable Abnorm Lymph % (Manual) Not Reportable Nucleated RBC % 0.0 /100WBC Neutrophils # (Manual) Not Reportable Lymphocytes # (Manual) Not Reportable Monocytes # (Manual) Not Reportable Eosinophils # (Manual) Not Reportable Basophils # (Manual) Not Reportable Differential Comment MANUAL=AUTO DIFF Manual Slide Review Indicated WBC Morphology 1+ DOHLE BODIES (NORMAL) Platelet Estimate DECREASED (<130,000) (NORMAL) Platelet Morphology NORMAL APPEARANCE (NORMAL) RBC Morph Micro Appear NORMAL APPEARANCE (NORMAL) Sodium 129 L (135-145) mmol/L Potassium 3.9 (3.5-4.5) mmol/L Chloride 98 L (101-111) mmol/L Carbon Dioxide 22 (21-32) mmol/L Anion Gap 9.0 (6-13) BUN 23 H (6-20) mg/dL Creatinine 1.4 H (0.6-1.3) mg/dL Estimated GFR (MDRD) 36 L (>89) Glucose 171 H (74-104) mg/dL Lactic Acid 1.4 (0.5-2.2) mmol/L Calcium 8.5 (8.5-10.3) mg/dL Total Bilirubin 0.9 (0.2-1.0) mg/dL AST 28 (10-42) IU/L ALT 27 (10-60) IU/L Alkaline Phosphatase 68 (42-121) IU/L Total Protein 6.4 (6.4-8.9) g/dL Albumin 3.2 (3.2-5.5) g/dL Globulin 3.2 (2.1-4.2) g/dL Albumin/Globulin Ratio 1.0 (1.0-2.2) Urine Color Urine Clarity (CLEAR) Urine pH (5.0-7.5) PH Ur Specific [place] (1.002-1.030) Urine Protein (NEGATIVE) mg/dL Urine Glucose (UA) (NEGATIVE) mg/dL Urine Ketones (NEGATIVE) mg/dL Urine Occult Blood (NEGATIVE) Urine Nitrite (NEGATIVE) Urine Bilirubin (NEGATIVE) Urine Urobilinogen (NORMAL) E.U./dL Ur Leukocyte Esterase (NEGATIVE) Urine RBC (0-5) /HPF Urine WBC (0-5) /HPF Ur Squamous Epith Cells (<= Few) Urine Bacteria (None Seen) /HPF Urine Culture Comments Nasal Adenovirus (PCR) Nasal B. parapertussis DNA (PCR) Nasal Coronavir 229E PCR Nasal Coronavir HKU1 PCR Nasal Coronavir NL63 PCR Nasal Coronavir OC43 PCR Nasal Enterovir/Rhinovir PCR Nasal Influenza B PCR Nasal Influenza A PCR Nasal Parainfluen 1 PCR Nasal Parainfluen 2 PCR Nasal Parainfluen 3 PCR Nasal Parainfluen 4 PCR Nasal RSV (PCR) Nasal B.pertussis DNA PCR Nasal C.pneumoniae (PCR) Vladimir Human Metapneumo PCR Nasal M.pneumoniae (PCR) Nasal SARS-CoV-2 (PCR) Other Results/Comments Other Results/Comments: WBC 0.9, PLT 17 Assessment/Plan Problem List (1) Fever and neutropenia: Impression: Continue NS at 100 Continue cefepime, vancomycin Daily CBC, CMP Neutropenic precautions (2) Thrombocytopenia: Impression: PLT 17 today No active bleeding Transfuse if drops below 10 (3) Chemotherapy induced diarrhea: Impression: Reports taking Imodium at home for this Check stool PCR Restart Imodium if PCR negative (4) Prediabetes: Impression: Check A1c (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 Huertas on 04/20/2024 Receives radiation 5 times a week and scheduled
--- NOTE | 2024-04-07 14:19 | PHARMACY PROGRESS NOTE ---
Best Possible Medication History Admit Date and Time: 04/06/242043 Home Medications Medication Instructions Recorded Confirmed Type losartan 50 mg tablet 50 mg PO DAILY 10/11/20 04/07/24 History magnesium carb,citrate,oxide 300 mg PO DAILY 01/19/24 04/07/24 History (Magnesium Complex) multivitamin-ferrous 1 tab PO DAILY 01/19/24 04/07/24 History fumarate-folic acid 18 mg-400 mcg tablet (Centrum Women) rosuvastatin 20 mg tablet 20 mg PO DAILY 01/19/24 04/07/24 History lidocaine 5 % topical ointment 1 applic topical QID #35.44 grams 01/26/24 04/07/24 Rx ondansetron HCl 8 mg tablet 8 mg PO TID #90 tabs 03/23/24 04/07/24 Rx prochlorperazine maleate 10 mg 10 mg PO TID #90 tabs 03/23/24 04/07/24 Rx tablet (Compazine) oxycodone 5 mg capsule 5 mg PO QDAY PRN pain (scale score 03/24/24 04/07/24 Rx 7-10) #35 caps nystatin 100,000 unit/gram topical 1 applic topical QDAY #30 grams 03/31/24 04/07/24 Rx powder triamcinolone acetonide 0.05 % 1 applic topical QDAY #110 grams 03/31/24 04/07/24 Rx topical ointment acetaminophen 500 mg tablet 500 mg PO Q4H PRN pain 04/07/24 04/07/24 History wwbojem-mnjydvlhrxqmv-pxtcdlrj 250 1 tab PO Q4H PRN headache 04/07/24 04/07/24 History mg-250 mg-65 mg tablet (Excedrin Extra Strength) diphenhydramine 25 1 tab PO HS PRN pain 04/07/24 04/07/24 History mg-acetaminophen 500 mg tablet (Acetaminophen PM Extra Strength) omeprazole 20 mg capsule,delayed 20 mg PO DAILY 04/07/24 04/07/24 History release polyethylene glycol 3350 17 17 g PO DAILY PRN constipation 04/07/24 04/07/24 History gram/dose oral powder sumatriptan succinate 50 mg tablet 50 mg PO DAILY PRN migraine 04/07/24 04/07/24 History (Imitrex) headache Processed by: Pharmacy Medications reviewed in ED?: No Medication History completed: Yes Patient Interview: Completed Secondary Source(s): Insurance records [facility] Statement: As the person ultimately responsible for medication therapy, providers are able to order a medication from an existing home medication list in [facility] via the "Reconcile Routine" prior to Confirmation of that medication by customer support analyst. Such practice is discouraged except when the physician, in their clinical judgment, deems that a medical need exists for a medication without regard to previous use.
--- NOTE | 2024-04-07 14:35 | OT Plan of Care ---
OT Inpatient POC Diagnosis DIAGNOSIS Diagnosis: Neutropenic fever; sepsis Chief Complaint: General Weakness, GLF Onset of Chief Complaint: [employer]CIAL [employer] MEDICAL/SURGICAL HISTORY Medical History (Updated 04/06/24 @ 20:43 by Clark House MD) Rosacea (07/15/22) History of torn meniscus of left knee (07/15/22) Hemorrhoids (07/15/22) Cataract, bilateral (07/15/22) Surgical History (Updated 02/18/24 @ 13:17 by Basilio Nick CNA) History of tonsillectomy History of appendectomy H/O: hysterectomy Assessment and Goals ASSESSMENT Assessment: Pt is a 83 y/o female with PMHX significant for Anal cancer; adm with weakness and GLF; Found to have neutropenic fever and sepsis. A&Ox4, willing to participate with therapy. Follows all commands appropriately. Performed supine to sit, sit to stand and ambulation to/from bathroom using 2WW MIN A - Slowed guarded pace. MIN A toilet tx and MOD A hygiene s/p BM. MOD A LB clothing management. Sinkside grooming with MIN A - sitting rest breaks prn 2/2 fatigue. Overall pt presents with decreased activity tolerance, strength, endurance, and ADL status. Will benefit from cont OT services during acute stay. Rec d/c to SNF at this time. -Activities of Daily Living Improve Upper Extremity Dressing to:: Modified Independent Improve Lower Extremity Dressing to:: Modified Independent Improve Grooming/Hygiene to:: Modified Independent Improve Bathing to:: Modified Independent Improve Toileting to:: Modified Independent OT Inpatient Plan PLAN Treatment Frequency: 1x/day Duration: Until goals are met -Discharge Recommendations [facility] Transport Needs at Discharge: [facility]
--- NOTE | 2024-04-07 18:05 | PT Plan of Care ---
Medical/Surgical Past History Past History Medical History (Updated 04/06/24 @ 20:43 by Clark House MD) Rosacea (07/15/22) History of torn meniscus of left knee (07/15/22) Hemorrhoids (07/15/22) Cataract, bilateral (07/15/22) Surgical History (Updated 02/18/24 @ 13:17 by Basilio Nick CNA) History of tonsillectomy History of appendectomy H/O: hysterectomy
[2024-04-07] MEDS: CEFEPIME 1 GM in SODIUM CHLORIDE 0.9% MINIBAG 100 ML IV SCH (18:16)
[2024-04-07] MEDS: VANCOMYCIN INJ 1 GM, VANCOMYCIN INJ 250 MG in SODIUM CHLORIDE 0.9% 250 ML IV SCH (19:04)
[2024-04-07] MEDS: TRIAMCINOLONE 0.1% OINT 15 GM TUBE TOP SCH (21:43)
[2024-04-08 08:13] LABS: BASOPHILS % (AUTO) 1.4 %; EOSINOPHILS % (AUTO) 0.7 %; HCT - HEMATOCRIT 28.1 % (37.0-47.0); HGB - HEMOGLOBIN 9.5 g/dL (12.0-16.0); LYMPHOCYTES # (AUTO) 0.2 10^3/uL (1.5-3.5); LYMPHOCYTES % (AUTO) 15.5 %; MEAN CORPUSCULAR HEMOGLOBIN 30.9 pg (27.0-31.0); MEAN CORPUSCULAR HGB CONC 33.8 g/dL (32.0-36.0); MEAN CORPUSCULAR VOLUME 91.5 fL (81.0-99.0); MEAN PLATELET VOLUME 12.4 fL (7.9-10.8); MONOCYTES # (AUTO) 0.1 10^3/uL (0.0-1.0); MONOCYTES % (AUTO) 9.2 %; NEUTROPHILS # (AUTO) 0.9 10^3/uL (1.5-6.6); NEUTROPHILS % (AUTO) 66.2 %; RED BLOOD COUNT 3.07 10^6/uL (4.20-5.40); RED CELL DISTRIBUTION WIDTH 12.3 % (12.0-15.0)
[2024-04-08 08:27] LABS: CREATININE 0.7 mg/dL (0.6-1.3); POTASSIUM 3.5 mmol/L (3.5-4.5)
[2024-04-08 08:44] LABS: PLT - PLATELET COUNT 30 10^3/uL (130-450)
[2024-04-08 08:45] LABS: WHITE BLOOD COUNT 1.4 x10^3/uL (4.8-10.8)
[2024-04-08 08:47] LABS: RBC MORPHOLOGY (MULTIPLE) 1+ ANISOCYTOSIS (NORMAL); SLIDE REVIEW? Indicated
[2024-04-08 08:57] LABS: MAGNESIUM 1.6 mg/dL (1.7-2.3); PHOSPHORUS 1.7 mg/dL (2.5-5.0)
--- NOTE | 2024-04-08 10:25 | PROVIDER PROGRESS NOTE ---
Subjective Prog Note Date Prog Note Date: 04/08/24 Subjective Pt reports feeling: Improved Subjective: Reports feeling much better than she did when she first came in Current Medications Current Medications Current Medications: Current Medications Generic Name Dose Route Start Last Admin Trade Name Catherine PRN Reason Stop Dose Admin Acetaminophen 650 mg 04/06/24 20:44 04/08/24 06:30 Acetaminophen 325 Mg Tablet PO 650 mg Q4HR PRN Administration Pain 1 to 4, or Fever Sodium Chloride 1,000 mls @ 100 mls/hr 04/06/24 21:00 04/08/24 06:30 Normal Saline 0.9% IV 100 mls/hr .Q10H BARB Administration Cefepime HCl 1 gm/ Sodium 100 mls @ 200 mls/hr 04/07/24 18:00 04/07/24 19:04 Chloride IV Infused Q24H BARB Infusion Vancomycin HCl 1 gm/ 250 mls @ 166.667 mls/hr 04/07/24 19:00 04/07/24 20:54 Vancomycin HCl 250 mg/ Sodium IV Infused Chloride Q24H BARB Infusion Magnesium Sulfate 2 gm in 50 mls @ 50 mls/hr 04/08/24 10:17 Magnesium Sulfate IV 04/08/24 11:16 ONCE ONE Lidocaine 1 applic 04/07/24 09:00 04/08/24 08:20 Lidocaine Ointment 5% 35.44 Gm Tube TOP 1 applic QID BARB Administration Losartan Potassium 50 mg 04/07/24 09:00 04/08/24 08:20 Losartan 50 Mg Tablet PO 50 mg DAILY BARB Administration Multi-Ingredient Ointment 1 applic 04/07/24 00:03 Zinc Oxide 20% Oint 30 Gm Tube TOP PRN PRN Skin Care Multivitamins 1 tab 04/07/24 09:00 04/08/24 08:20 Multivitamin Tablet PO 1 tab DAILYWM BARB Administration Nystatin 1 applic 04/07/24 09:00 04/08/24 08:20 Nystatin Powder 15 Gm TOP 1 applic DAILY BARB Administration Ondansetron HCl 4 mg 04/06/24 20:44 Ondansetron Odt 4 Mg Tablet TL Q6HR PRN Nausea / Vomiting Pantoprazole Sodium 40 mg 04/07/24 08:00 04/08/24 06:30 Pantoprazole 40 Mg Tablet PO 40 mg QDAC BARB Administration Sodium Chloride 10 ml 04/06/24 20:44 Sodium Chloride Flush 0.9% 10 Ml Syringe IVP PRN PRN NEEDED PER PROVIDER ORDERS Sodium Chloride 10 ml 04/07/24 01:00 04/08/24 08:20 Sodium Chloride Flush 0.9% 10 Ml Syringe IVP 10 ml 0100,0900,1700 BARB Administration Sodium Phosphate 250 mg 04/08/24 12:00 Neutra-Phos 250 Mg Tablet PO TIDWM BARB Triamcinolone Acetonide 1 applic 04/07/24 21:00 04/07/24 21:43 Triamcinolone 0.1% Oint 15 Gm Tube TOP 1 applic HS BARB Administration Vancomycin HCl 1 each 04/06/24 20:49 Vancomycin: Pharmacy To Dose MC .ONCE PRN PER PHARMACY Zinc Oxide 113 gm 04/07/24 00:03 Cod Liver Oil/Zinc Oxide 113 Gm Tube TOP PRN PRN Skin Care Objective Vital Signs/Intake & Output Reviewed Vital Signs: Yes Vital Signs: Vital Signs x48h Temp Pulse Pulse Resp BP BP Pulse Ox 04/08/24 08:23 36.5 C 85 18 102/55 L 97 04/08/24 03:42 36.6 C 89 20 105/70 95 Intake & Output: Intake & Output 04/06/24 04/07/24 04/08/24 04/09/24 05:59 05:59 05:59 05:59 Intake Total 4500 / 4500 2777 / 2777 1100 / 1100 Output Total 100 / 100 Balance 4500 / 4500 2677 / 2677 1100 / 1100 Weight (kg) 100 kg Objective General Appearance: positive No acute distress and Alert Eyes Bilateral: positive Normal inspection ENT: positive ENT inspection nml Neck: positive Nml inspection Respiratory: positive Chest non-tender Cardiovascular: positive Regular rate & rhythm and No murmur Abdomen: positive Non-tender Skin: positive Color nml Extremities: positive Non-tender Neurologic/Psychiatric: positive Oriented x3 Lab Results 04/08/24 08:01 04/08/24 08:01 Other Labs: Lab Results x24hrs 04/08/24 Range/Units 08:01 WBC 1.4 L* (4.8-10.8) x10^3/uL RBC 3.07 L (4.20-5.40) 10^6/uL Hgb 9.5 L (12.0-16.0) g/dL Hct 28.1 L (37.0-47.0) % MCV 91.5 (81.0-99.0) fL MCH 30.9 (27.0-31.0) pg MCHC 33.8 (32.0-36.0) g/dL RDW 12.3 (12.0-15.0) % Plt Count 30 L* (130-450) 10^3/uL MPV 12.4 H (7.9-10.8) fL Neut # (Auto) 0.9 L (1.5-6.6) 10^3/uL Lymph # (Auto) 0.2 L (1.5-3.5) 10^3/uL [place] # (Auto) 0.1 (0.0-1.0) 10^3/uL Eos # (Auto) 0.0 (0.0-0.7) 10^3/uL Baso # (Auto) 0.0 (0.0-0.1) 10^3/uL Absolute Nucleated RBC 0.00 x10^3/uL Nucleated RBC % 0.0 /100WBC Manual Slide Review Indicated RBC Morph Micro Appear 1+ ANISOCYTOSIS (NORMAL) Sodium 135 (135-145) mmol/L Potassium 3.5 (3.5-4.5) mmol/L Chloride 112 H (101-111) mmol/L Carbon Dioxide 20 L (21-32) mmol/L Anion Gap 3.0 L (6-13) BUN 16 (6-20) mg/dL Creatinine 0.7 (0.6-1.3) mg/dL Estimated GFR (MDRD) 80 L (>89) Glucose 91 (74-104) mg/dL Calcium 8.0 L (8.5-10.3) mg/dL Phosphorus 1.7 L (2.5-5.0) mg/dL Magnesium 1.6 L (1.7-2.3) mg/dL Other Results/Comments Other Results/Comments: WBC 1.4, PLT 30, ANC 0.9 Assessment/Plan Problem List (1) Fever and neutropenia: Impression: DC NS as she is now eating Continue cefepime, vancomycin Daily CBC, CMP Can come out of neutropenic precautions Likely discharge tomorrow if her ANC continues to improve (2) Thrombocytopenia: Impression: PLT 30 today No active bleeding Transfuse if drops below 10 (3) Chemotherapy induced diarrhea: Impression: Reports taking Imodium at home for this Check stool PCR Restart Imodium if PCR negative (4) Prediabetes: Impression: Check A1c (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 Huertas on 04/20/2024 Receives radiation 5 times a week and scheduled
--- NOTE | 2024-04-08 10:30 | ADVANCE CARE PLANNING NOTE ---
Advance Care Planning Planning Encounter Date: 04/07/24 Time: 18:30 Purpose: To discuss long-term plan of care and resources at discharge Parties in Attendance: Patient Decisional Capacity of the Patient: Full Diagnosis for Encounter (1) Fever and neutropenia: Summary: She is admitted for pancytopenia and neutropenic fever. She receives chemotherapy as well as 5 times weekly radiation. 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 She worked for [employer] in [place] and then for the [employer] and moved to [facility] to be close to her daughter who works as an educator. She states she was independent prior to chemotherapy starting, but she is now incredibly weak and has to have help with errands and with travel to her 5 times a week radiation appointments. She is attempting to set up grocery delivery from [facility]. She tells me that she has a referral already to palliative care, but has not talked with them yet regarding resources Objective/Medical Story: Patient has anal squamous cell carcinoma on chemoradiation. Received C1 D1 on 03/23/2024 and received radiation at [facility] 5 times a week Goals of Care: She greatly values her independence, and is looking forward to returning to prior level of independence once she is no longer on chemotherapy. She would like resources to help get her through this chemotherapy Plan: Daughter will be here tonight, they will discuss resources with social work. I will notify palliative care that she is here and would like to talk to them. I discussed POLST form with her, and will follow-up on POLST form after she is able to talk to her daughter about this Code Status: Attempt Resuscitation Time spent on advance care plannin
[2024-04-08] MEDS: MAGNESIUM SULFATE 2 GRAM 2 GM/50 ML BAG IV ONE (11:36)
[2024-04-08] MEDS: NEUTRA-PHOS 250 MG TABLET PO SCH (12:01)
[2024-04-08] MEDS ORDERED: VANCOMYCIN INJ 1.25 GM in SODIUM CHLORIDE 0.9% 250 ML IV SCH (19:00)
[2024-04-08] MEDS ORDERED: SODIUM CHLORIDE 0.9% 250 ML IV ONE (19:59)
[2024-04-08] MEDS ORDERED: VANCOMYCIN 1 GM VIAL ONE (19:59)
[2024-04-09] MEDS: oxyCODONE 5 MG TABLET PO PRN ×2 (00:32→23:45)
[2024-04-09 06:24] LABS: BASOPHILS % (AUTO) 0.7 %; HCT - HEMATOCRIT 26.6 % (37.0-47.0); HGB - HEMOGLOBIN 9.1 g/dL (12.0-16.0); LYMPHOCYTES % (AUTO) 22.4 %; MEAN CORPUSCULAR HEMOGLOBIN 30.8 pg (27.0-31.0); MEAN CORPUSCULAR HGB CONC 34.2 g/dL (32.0-36.0); MEAN CORPUSCULAR VOLUME 90.2 fL (81.0-99.0); MEAN PLATELET VOLUME 11.5 fL (7.9-10.8); MONOCYTES % (AUTO) 15.6 %; NEUTROPHILS % (AUTO) 55.2 %; PLT - PLATELET COUNT 52 10^3/uL (130-450); RED BLOOD COUNT 2.95 10^6/uL (4.20-5.40); RED CELL DISTRIBUTION WIDTH 12.4 % (12.0-15.0)
[2024-04-09 06:33] LABS: WHITE BLOOD COUNT 1.5 x10^3/uL (4.8-10.8)
[2024-04-09 06:35] LABS: ABNORMAL LYMPHS % (MANUAL) 0 %; CALCIUM 8.3 mg/dL (8.5-10.3); CREATININE 0.6 mg/dL (0.6-1.3); POTASSIUM 3.3 mmol/L (3.5-4.5)
[2024-04-09 06:56] LABS: BAND NEUTROPHILS % (MANUAL) 4 %; DIFFERENTIAL COMMENT MANUAL DIFFERENTIAL; LYMPHOCYTES # (MANUAL) 0.3 10^3/uL (1.5-3.5); LYMPHOCYTES % (MANUAL) 18 %; MONOCYTES # (MANUAL) 0.2 10^3/uL (0.0-1.0); PLATELET ESTIMATE, MANUAL NORMAL (130-450,000) (NORMAL); PLATELET MORPHOLOGY NORMAL APPEARANCE (NORMAL); RBC MORPHOLOGY (MULTIPLE) NORMAL APPEARANCE (NORMAL); WBC MORPHOLOGY (MULTIPLE) NORMAL APPEARANCE (NORMAL)
[2024-04-09] MEDS ORDERED: ASPIRIN ACETAMINOPHEN CAFFEINE PO PRN (07:04)
[2024-04-09 07:05] LABS: PHOSPHORUS 1.9 mg/dL (2.5-5.0)
[2024-04-09] MEDS ORDERED: diphenhydrAMINE INJ 50 MG/ML VIAL IVP SCH (08:00)
[2024-04-09] MEDS ORDERED: METOCLOPRAMIDE 10 MG/2 ML VIAL IVP SCH (08:00)
--- NOTE | 2024-04-09 08:16 | PROVIDER PROGRESS NOTE ---
Subjective Prog Note Date Prog Note Date: 04/09/24 Subjective Pt reports feeling: Improved Subjective: Still feeling much better. Expresses concern over placement Current Medications Current Medications Current Medications: Current Medications Generic Name Dose Route Start Last Admin Trade Name Freq PRN Reason Stop Dose Admin Acetaminophen 650 mg 04/06/24 20:44 04/09/24 06:13 Acetaminophen 325 Mg Tablet PO 650 mg Q4HR PRN Administration Pain 1 to 4, or Fever Diphenhydramine HCl 25 mg 04/09/24 08:00 Diphenhydramine Inj 50 Mg/Ml Vial IVP 04/09/24 23:59 ONCE BARB Cefepime HCl 1 gm/ Sodium 100 mls @ 200 mls/hr 04/07/24 18:00 04/08/24 19:57 Chloride IV Infused Q24H BARB Infusion Vancomycin HCl 1 gm/ 250 mls @ 166.667 mls/hr 04/07/24 19:00 04/08/24 21:48 Vancomycin HCl 250 mg/ Sodium IV Infused Chloride Q24H BARB Infusion Lidocaine 1 applic 04/07/24 09:00 04/08/24 20:07 Lidocaine Ointment 5% 35.44 Gm Tube TOP 1 applic QID BARB Administration Losartan Potassium 50 mg 04/07/24 09:00 04/08/24 08:20 Losartan 50 Mg Tablet PO 50 mg DAILY BARB Administration Metoclopramide HCl 5 mg 04/09/24 08:00 Metoclopramide 10 Mg/2 Ml Vial IVP 04/09/24 23:59 ONCE BARB Multi-Ingredient Ointment 1 applic 04/07/24 00:03 Zinc Oxide 20% Oint 30 Gm Tube TOP PRN PRN Skin Care Multivitamins 1 tab 04/07/24 09:00 04/08/24 08:20 Multivitamin Tablet PO 1 tab DAILYWM BARB Administration Nystatin 1 applic 04/07/24 09:00 04/08/24 08:20 Nystatin Powder 15 Gm TOP 1 applic DAILY BARB Administration Ondansetron HCl 4 mg 04/06/24 20:44 Ondansetron Odt 4 Mg Tablet TL Q6HR PRN Nausea / Vomiting Oxycodone HCl 5 mg 04/09/24 00:26 04/09/24 00:32 Oxycodone 5 Mg Tablet PO 5 mg Q6H PRN Administration PAIN 7-10 Pantoprazole Sodium 40 mg 04/07/24 08:00 04/09/24 06:14 Pantoprazole 40 Mg Tablet PO 40 mg QDAC BARB Administration Sodium Chloride 10 ml 04/06/24 20:44 Sodium Chloride Flush 0.9% 10 Ml Syringe IVP PRN PRN NEEDED PER PROVIDER ORDERS Sodium Chloride 10 ml 04/07/24 01:00 04/09/24 00:33 Sodium Chloride Flush 0.9% 10 Ml Syringe IVP 10 ml 0100,0900,1700 BARB Administration Sodium Phosphate 250 mg 04/08/24 12:00 04/08/24 17:40 Neutra-Phos 250 Mg Tablet PO 250 mg TIDWM BARB Administration Sumatriptan Succinate 50 mg 04/08/24 22:10 Sumatriptan Succinate 50 Mg Tablet PO 04/09/24 22:09 ONCE PRN HEADACHE Triamcinolone Acetonide 1 applic 04/07/24 21:00 04/08/24 20:06 Triamcinolone 0.1% Oint 15 Gm Tube TOP 1 applic HS BARB Administration Vancomycin HCl 1 each 04/06/24 20:49 Vancomycin: Pharmacy To Dose [facility] .ONCE PRN PER PHARMACY Zinc Oxide 113 gm 04/07/24 00:03 Cod Liver Oil/Zinc Oxide 113 Gm Tube TOP PRN PRN Skin Care Objective Vital Signs/Intake & Output Reviewed Vital Signs: Yes Vital Signs: Vital Signs x48h Temp Pulse Resp BP Pulse Ox 04/09/24 04:14 36.6 C 89 16 153/91 H 96 Intake & Output: Intake & Output 04/07/24 04/08/24 04/09/24 04/10/24 05:59 05:59 05:59 05:59 Intake Total 4500 / 4500 2777 / 2777 2130 / 2130 Output Total 100 / 100 Balance 4500 / 4500 2677 / 2677 2130 / 2130 Weight (kg) 100 kg Objective General Appearance: positive No acute distress and Alert Eyes Bilateral: positive Normal inspection ENT: positive ENT inspection nml Neck: positive Nml inspection Respiratory: positive Chest non-tender Cardiovascular: positive Regular rate & rhythm and No murmur Abdomen: positive Non-tender Skin: positive Color nml Extremities: positive Non-tender Neurologic/Psychiatric: positive Oriented x3 Lab Results 04/09/24 06:10 04/09/24 06:10 Other Labs: Lab Results x24hrs 04/09/24 04/08/24 Range/Units 06:10 08:01 WBC 1.5 L* 1.4 L* (4.8-10.8) x10^3/uL RBC 2.95 L 3.07 L (4.20-5.40) 10^6/uL Hgb 9.1 L 9.5 L (12.0-16.0) g/dL Hct 26.6 L 28.1 L (37.0-47.0) % MCV 90.2 91.5 (81.0-99.0) fL MCH 30.8 30.9 (27.0-31.0) pg MCHC 34.2 33.8 (32.0-36.0) g/dL RDW 12.4 12.3 (12.0-15.0) % Plt Count 52 L 30 L* (130-450) 10^3/uL MPV 11.5 H 12.4 H (7.9-10.8) fL Neut # (Auto) Not Reportable 0.9 L (1.5-6.6) 10^3/uL Lymph # (Auto) Not Reportable 0.2 L (1.5-3.5) 10^3/uL [place] # (Auto) Not Reportable 0.1 (0.0-1.0) 10^3/uL Eos # (Auto) Not Reportable 0.0 (0.0-0.7) 10^3/uL Baso # (Auto) Not Reportable 0.0 (0.0-0.1) 10^3/uL Absolute Nucleated RBC Not Reportable 0.00 x10^3/uL Total Counted 100 Band Neuts % (Manual) 4 (0 - 10) % Abnorm Lymph % (Manual) 0 % Nucleated RBC % Not Reportable 0.0 /100WBC Neutrophils # (Manual) 1.0 L (1.5-6.6) 10^3/uL Lymphocytes # (Manual) 0.3 L (1.5-3.5) 10^3/uL Monocytes # (Manual) 0.2 (0.0-1.0) 10^3/uL Eosinophils # (Manual) 0.0 (0-0.7) 10^3/uL Basophils # (Manual) 0.0 (0-0.1) 10^3/uL Differential Comment MANUAL DIFFERENTIAL Manual Slide Review Indicated WBC Morphology NORMAL APPEARANCE (NORMAL) Platelet Estimate NORMAL (130-450,000) (NORMAL) Platelet Morphology NORMAL APPEARANCE (NORMAL) RBC Morph Micro Appear NORMAL APPEARANCE 1+ ANISOCYTOSIS (NORMAL) Sodium 138 135 (135-145) mmol/L Potassium 3.3 L 3.5 (3.5-4.5) mmol/L Chloride 110 112 H (101-111) mmol/L Carbon Dioxide 24 20 L (21-32) mmol/L Anion Gap 4.0 L 3.0 L (6-13) BUN 17 16 (6-20) mg/dL Creatinine 0.6 0.7 (0.6-1.3) mg/dL Estimated GFR (MDRD) 95 80 L (>89) Glucose 85 91 (74-104) mg/dL Calcium 8.3 L 8.0 L (8.5-10.3) mg/dL Phosphorus 1.9 L 1.7 L (2.5-5.0) mg/dL Magnesium 2.0 1.6 L (1.7-2.3) mg/dL Other Results/Comments Other Results/Comments: WBC 1.5, PLT 52, ANC 1 Assessment/Plan Problem List (1) Fever and neutropenia: Impression: Continue cefepime, vancomycin while inpatient Daily CBC, CMP Today, she is medically cleared for discharge. PT/OT recommends facility placement. We will have difficulty placing her as she requires chemotherapy and 5 times weekly radiation. 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 Huertas on 04/20/2024 Receives radiation 5 times a week at [facility] (5) Migraine: Impression: Headache resolved after one-time dose of oxycodone last night Toradol, Reglan, Decadron, Benadryl one-time dose IV Imitrex as needed Excedrin as needed
[2024-04-09] MEDS: POTASSIUM CHLORIDE 20 MEQ TABLET PO ONE (08:29)
[2024-04-09] MEDS: SUMAtriptan succinate 50 MG TABLET PO PRN (09:14)
--- NOTE | 2024-04-09 11:31 | Palliative Care ---
CC HPI Chief Complaint Chief Complaint: Rectal pain, anal fissures; weight loss; anxiety; anal CA, muscle weakness History Obtained From Records Reviewed: oncology; ED, hospital History obtained from: patient History of Present Illness HPI: This is an 83-year-old woman who has had a long complicated course regarding and a recurrent/nonhealing anal fissure. 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 She has started definitive treatment with radiation, with planned course of 30 treatments, has received 8, as well as chemotherapy of mitomycin, and 4-day infusion of 5-FU. Her treatment was on 03/23/2024, she was experiencing diarrhea, mucositis, rash, and poor intake with toxicity check on 03/31. She unfortunately presented to the ED after a significant fall related to weakness and diarrhea, as well as ongoing anorexia on 04/06 with pancytopenia, fever, has received antibiotics. She is still very weak, feeling overwhelmed, and significant anal pain with recurrent diarrhea. She unfortunately also has migraine today, she has long history of migraines and brought on by stress. She is needing assistance with toileting, pericare, and standby contact assist, is very concerned about being able to continue her treatment, being a burden on her children, and recognizes needing help but how best to get support for both nursing and rehab care. Unfortunately, patient had declined palliative care previously, but we did have outpatient referral with goal to admit next week. I am here introducing services, but also given her current situation addressing concerns and support for symptom management. She is pending information with hope to go to [facility] in [facility] which is near her radiation oncology team. Meds/Allgy Home Medications Ambulatory Orders Medication Instructions Recorded Confirmed losartan 50 mg tablet 50 mg PO DAILY 10/11/20 04/07/24 magnesium carb,citrate,oxide 300 mg PO DAILY 01/19/24 04/07/24 (Magnesium Complex) multivitamin-ferrous 1 tab PO DAILY 01/19/24 04/07/24 fumarate-folic acid 18 mg-400 mcg tablet (Centrum Women) rosuvastatin 20 mg tablet 20 mg PO DAILY 01/19/24 04/07/24 lidocaine 5 % topical ointment 1 applic topical QID #35.44 grams 01/26/24 04/07/24 ondansetron HCl 8 mg tablet 8 mg PO TID #90 tabs 03/23/24 04/07/24 prochlorperazine maleate 10 mg 10 mg PO TID #90 tabs 03/23/24 04/07/24 tablet (Compazine) oxycodone 5 mg capsule 5 mg PO QDAY PRN pain (scale score 03/24/24 04/07/24 7-10) #35 caps nystatin 100,000 unit/gram topical 1 applic topical QDAY #30 grams 03/31/24 04/07/24 powder triamcinolone acetonide 0.05 % 1 applic topical QDAY #110 grams 03/31/24 04/07/24 topical ointment acetaminophen 500 mg tablet 500 mg PO Q4H PRN pain 04/07/24 04/07/24 [id number] 250 1 tab PO Q4H PRN headache 04/07/24 04/07/24 mg-250 mg-65 mg tablet (Excedrin Extra Strength) diphenhydramine 25 1 tab PO HS PRN pain 04/07/24 04/07/24 mg-acetaminophen 500 mg tablet (Acetaminophen PM Extra Strength) omeprazole 20 mg capsule,delayed 20 mg PO DAILY 04/07/24 04/07/24 release polyethylene glycol 3350 17 17 g PO DAILY PRN constipation 04/07/24 04/07/24 gram/dose oral powder sumatriptan succinate 50 mg tablet 50 mg PO DAILY PRN migraine 04/07/24 04/07/24 (Imitrex) headache Allergies Allergies Allergy/AdvReac Type Severity Reaction Status Date / Time meperidine (From Demerol) Allergy Cramps Verified 04/06/24 16:00 Palliative Care Performance Status Performance status: Patient's previous status prior to treatment, independent in ADLS, driving, and though sedentary was functional. Has had functional decline over last several weaks, with LE weakness and now a fairly elaborate need for perirectal care. Palliative Care Discussion: Patient's understanding of her anal cancer, is that she is going to need treatment, but is hopeful as far as outcomes. She is quite germán though in our conversation that she is afraid today that the "treatment is going to kill me first". She is concerned about the burden she is putting on her daughter, her son Chip is coming up to provide some support, unclear as far as how it is all going to play out in waiting for placement and possibilities for ongoing support for treatment plan. She reports her son Levi is her DPOA for healthcare, he is in [place], but is an flat bed operator. She is confident that he would follow her wishes, if she were unable to make her needs known. She has met with the hospitalist regarding advance care planning, there is a POLST with DNAR/DNI and selective treatments, we did not go further into this discussion given her current level of overwhelm and priorities regarding her current situation. ESAS [place] Symptom Assessment Scale Please [place] the number that best describes how you feel NOW ESAS Pain: 9 (Rectal pain, worsens with diarrhea or bowel movement, is very painful also with sitting. Patient with persistent lingering pain, unable to get comfortable.) Impression Impression: This is an 83-year-old woman getting treated for anal cancer, unfortunately she is at the very beginning of a very rigorous treatment plan. She has been acutely hospitalized for fever and neutropenia, has had functional decline, and increasing symptom burden. Palliative care meeting patient for first time, with introduction of palliative care services as well as assistance in coordination of care. Vitals Vital Signs 04/06/24 16:00 04/06/24 17:29 04/06/24 18:53 04/06/24 19:50 04/06/24 20:13 04/06/24 21:00 04/06/24 21:45 04/06/24 22:41 04/06/24 22:48 04/07/24 04:49 04/07/24 08:20 04/07/24 10:40 04/07/24 11:32 04/07/24 14:46 04/07/24 18:04 04/07/24 20:30 04/07/24 23:59 04/08/24 03:42 04/08/24 08:23 04/08/24 14:23 04/08/24 19:16 04/08/24 21:26 04/09/24 04:14 04/09/24 09:00 04/09/24 13:40 Height 5 ft 6 in 5 ft 2 in 5 ft 2 in Weight 180 lb 220 lb 7.396 oz 220 lb 7.396 oz BMI 40.7 BP 102/65 93/47 L 90/57 L 92/60 96/48 L 90/54 L 101/63 95/41 L 116/57 L 115/48 L 96/61 96/61 106/55 L 96/61 102/72 106/58 L 105/70 102/55 L 117/55 L 1 23/58 L 142/74 H 153/91 H 164/92 H Respiration 18 18 19 16 16 16 18 22 20 20 20 16 20 18 24 20 20 16 20 Pulse 110 H 110 H 101 H 101 H 103 H 96 H 97 H 91 H 86 98 H 88 88 82 88 85 85 89 85 89 82 86 89 73 Temp 99.7 F 102.3 F H 99.3 F 98.8 F 99.0 F 97.7 F 98.1 F 97.9 F 9 8.6 F 98.4 F 97.9 F 97.7 F 98.2 F 98.6 F 98.4 F 97.9 F 207.9 F H Temp Source Oral Oral Oral Temporal Artery Scan Oral Temporal Artery Sc an Temporal Artery Scan Temporal Artery Scan Skin Skin Skin Temporal Artery Scan Temporal Artery Scan Temporal Artery Scan Temporal Artery Scan Temporal Arter y Scan Temporal Artery Scan Pulse Oximetry 93 97 96 97 96 97 96 95 99 98 98 97 95 97 98 96 97 96 96 [facility] Medical History Medical History (Updated 04/09/24 @ 14:34 by MACI Locke) Rosacea (07/15/22) History of torn meniscus of left knee (07/15/22) Hemorrhoids (07/15/22) Cataract, bilateral (07/15/22) Surgical History Surgical History (Updated 02/18/24 @ 13:17 by Basilio Nick CNA) History of tonsillectomy History of appendectomy H/O: hysterectomy Family History Family History (Updated 02/18/24 @ 13:20 by Basilio Nick CNA) Mother No problems noted. Social History Social History (Updated 02/23/24 @ 08:37 by Tracy Baltazar RN, [facility]) Smoking Status: Never smoker Do you dip or chew tobacco?: No Do you vape?: No Relationship: Level: Independent Home Mobility Equipment: Cane Do you feel safe in your home environment?: Yes Suffered physical, verbal, emotional, or financial abuse?: No ETOH Use: Wine Frequency: Daily Number of Amount/day: 2 (2 glasses of wine for dinner, last used 4 days ago) Substance Use: denies use POLST Patient has POLST: Yes POLST Status: Limited Interventions Review of Systems Constitutional Reports: Fatigue, Weakness, Changes in appetite or eating habits, Poor appetite, Weight loss and Change in sleep pattern; Denies: Fever or Chills Ears, nose, mouth, and throat Reports: Mouth pain (improved with resolution of mouth sores) and Dry mouth Cardiovascular Reports: shortness of breath with exertion and Decreased exercise tolerance Respiratory Reports: Shortness of breath and SOB with exertion; Denies: SOB at rest Gastrointestinal Reports: Poor appetite, Diarrhea (two explosive episodes during visit), Painful bowel movements, Rectal bleeding and Rectal pain Genitourinary Denies: Painful urination Musculoskeletal Reports: Joint pain (bilateral knee pain), Stiffness and Muscle weakness Integumentary/Breast Reports: Skin pain (reports "fissures" 9/10 pain after bowel movement) Neurological Reports: Headache (building over three days; just had taken imitrex) and Abnormal gait (LE weakness needing rolling walker) Psychiatric Reports: Depression and Anxiety Endocrine Reports: Fatigue Hematologic/Lymphatic Reports: Anemia, Easy bruising (large bruise with fall) and Easy bleeding Exam Constitutional Patient with large body habitus; appears quite pale and weak; pain behaviors with unable to sit or move any pressure on rectal area; expressing moderate distress Eyes no scleral icterus Neck/C-Spine trachea midline Respiratory respiratory effort with activity Gastrointestinal abdomen obese Extremities gait unsteady; needing walker; Psychiatry oriented x3 anxiety and expressing overwhelm Assessment & Plan Assessment & Plan (1) Cancer associated pain: Assessment: Patient with pain in rectal area, had used oxycodone 5 mg with good relief last night. 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 She does have a significant level of pain and discomfort 9 out of 10, is quite tearful when describing her pain and discomfort. She had been using previously sitz bath's and ointments, patient most likely needs more aggressive management of anal fissures/pain. Code(s): G89.3 - Neoplasm related pain (acute) (chronic) Plan: Counseling provided regarding the context of using opioids for pain, discussed at length addressing barriers, recommended using tool, we discussed pain and the stress on her body, as well as her ability to heal and participate further in activity. Patient did except oxycodone prior to my leaving, encouraged to use on a more regular basis. (2) Anal squamous cell carcinoma: Assessment: Patient very distressed regarding interruption in her treatment, unfortunately she is stuck between a rock and a hard place given she does need to continue treatment particularly with squamous cell, but also expected further severity of symptoms of pain and diarrhea. She is already struggling to be able to meet her personal care needs, pericare, and needs further assistance and nursing support to be able to manage this. Code(s): C21.0 - Malignant neoplasm of anus, unspecified Plan: Call to Dr. Reji Coffey, [facility], regarding patient's hospitalization, high symptom burden, and possible transition to [facility] for support and care. Discussed threshold for patient to restart treatment, would like her to restart as soon as possible, but patient does need to be able to tolerate getting to radiation oncology. She reports they do have Nick lift since stretchers and assistance when she gets there, she also expressed concern about patient's needing further nursing support specifically regarding managing the rectal pain, tissue, and care needed moving forward. It is only going to get worse not better, and would benefit from support and care to help facilitate completion of treatment. We did discuss in the context of this the chemotherapy, it is not currently scheduled till 04/20, the hope would be she will have recovered to a place that she will be able to tolerate. Did remind Tony they will not treat unless she is much better, particularly functional status as do not want to cause her more "harm" though recognizing her treatment plan is important. (3) Fissure, anal: Assessment: This is multifactorial, both with the anal cancer, previous nonhealing fissures, as well as radiation and most likely fallout of mucositis. Patient needs more aggressive management of KALEE care, has been doing sitz bath's at home, as well as lathering with Aquaphor ointment. She does have some lidocaine ointment here that has been helpful, would recommend scheduled sitz bath at least 3-4 times a day, as well as increase protection and ointments of perirectal area.This area is at high risk for further infection and breakdown, important to be monitored. Code(s): K60.2 - Anal fissure, unspecified (4) Anxiety and depression: Assessment: Patient expressing overwhelm and anxiety regarding pending treatment and discharge plan, she is also feeling worse today. Patient telling her story and expressing feelings and concerns. Code(s): F41.9 - Anxiety disorder, unspecified; F32.A - Depression, unspecified Plan: Counseling to normalize current fears and concerns, particularly about her feeling of urgency for treatment plan, concerns for putting more on her children, trying to advocate for herself. Did speak with Dr. Beal, as PC will not be able to follow up there, there is Sarah the lead tech, as well as Christoph the medical social worker who can help coordinate care, this was share with patient. Plan Follow up with hospitalist regarding feedback from radiation oncology, recommendations for perirectal/fissure care, and outcome of our conversations. Counseling to patient during time here, to focus on pain control, healing her rectal tissue as able until next treatment, focus on nutrition and working with physical therapy to get stronger. Coordinated above information with medical social worker facilitating discharge plan. Will see patient Friday if still here.
[2024-04-09] MEDS ORDERED: SUMAtriptan succinate 50 MG TABLET PO PRN (15:41)
[2024-04-09] MEDS: DEXAMETHASONE 4 MG/ML VIAL IVP ONE (16:56)
[2024-04-09] MEDS: KETOROLAC 15 MG/ML VIAL IVP STA (16:57)
[2024-04-10] MEDS: LIDOCAINE OINTMENT 5% 35.44 GM TUBE TOP PRN (06:57)
[2024-04-10 07:10] LABS: ADENOVIRUS F 40/41 Not Detected (Not Detected); ASTROVIRUS Not Detected (Not Detected); C DIFFICILE TOXIN A/B Not Detected (Not Detected); CAMPYLOBACTER Not Detected (Not Detected); CRYPTOSPORIDIUM Not Detected (Not Detected); CYCLOSPORA CAYETANENSIS Not Detected (Not Detected); ENTAMOEBA HISTOLYTICA Not Detected (Not Detected); ENTEROAGGREGATIVE E COLI Not Detected (Not Detected); ENTEROPATHOGENIC E COLI Not Detected (Not Detected); ENTEROTOXIGENIC E COLI Not Detected (Not Detected); GIARDIA LAMBLIA Not Detected (Not Detected); NOROVIRUS GI/GII Detected (Not Detected); PLESIOMONAS SHIGELLOIDES Not Detected (Not Detected); ROTAVIRUS A Not Detected (Not Detected); SALMONELLA Not Detected (Not Detected); SAPOVIRUS Not Detected (Not Detected); SHIGA-TOXIN-PRODUCING E COLI Not Detected (Not Detected); SHIGELLA/ENTEROINVASIVE E COLI Not Detected (Not Detected); VIBRIO Not Detected (Not Detected); VIBRIO CHOLERAE Not Detected (Not Detected); YERSINIA ENTEROCOLITICA Not Detected (Not Detected)
[2024-04-10] MEDS ORDERED: NEUTRA-PHOS 250 MG TABLET PO SCH (08:00)
--- NOTE | 2024-04-10 09:03 | PROVIDER PROGRESS NOTE ---
Subjective Prog Note Date Prog Note Date: 04/10/24 Subjective Pt reports feeling: Improved Subjective: She seemed a bit withdrawn at time of my interview this morning. This could be because of her conversation with palliative care yesterday, or because it was 7 AM. Since yesterday, she has tested positive for norovirus Current Medications Current Medications Current Medications: Current Medications Generic Name Dose Route Start Last Admin Trade Name Riosq PRN Reason Stop Dose Admin Acetaminophen 650 mg 04/06/24 20:44 04/09/24 06:13 Acetaminophen 325 Mg Tablet PO 650 mg Q4HR PRN Administration Pain 1 to 4, or Fever Cefepime HCl 1 gm/ Sodium 100 mls @ 200 mls/hr 04/07/24 18:00 04/09/24 18:25 Chloride IV Infused Q24H BARB Infusion Vancomycin HCl 1 gm/ 250 mls @ 166.667 mls/hr 04/07/24 19:00 04/09/24 20:44 Vancomycin HCl 250 mg/ Sodium IV Infused Chloride Q24H BARB Infusion Lidocaine 1 applic 04/07/24 09:00 04/10/24 05:23 Lidocaine Ointment 5% 35.44 Gm Tube TOP 1 applic QID BARB Administration Lidocaine 1 applic 04/10/24 05:56 04/10/24 06:57 Lidocaine Ointment 5% 35.44 Gm Tube TOP 1 applic QID PRN Administration PAIN 5-7 Loperamide HCl 2 mg 04/09/24 10:54 Loperamide 2 Mg Capsule PO QID PRN Diarrhea Losartan Potassium 50 mg 04/07/24 09:00 04/09/24 10:45 Losartan 50 Mg Tablet PO 50 mg DAILY BARB Administration Multi-Ingredient Ointment 1 applic 04/07/24 00:03 Zinc Oxide 20% Oint 30 Gm Tube TOP PRN PRN Skin Care Multivitamins 1 tab 04/07/24 09:00 04/09/24 08:30 Multivitamin Tablet PO 1 tab DAILYWM BARB Administration Nystatin 1 applic 04/07/24 09:00 04/09/24 10:43 Nystatin Powder 15 Gm TOP 1 applic DAILY BARB Administration Ondansetron HCl 4 mg 04/06/24 20:44 Ondansetron Odt 4 Mg Tablet TL Q6HR PRN Nausea / Vomiting Oxycodone HCl 5 mg 04/09/24 15:41 04/09/24 23:45 Oxycodone 5 Mg Tablet PO 5 mg Q4H PRN Administration PAIN 7-10 Pantoprazole Sodium 40 mg 04/07/24 08:00 04/10/24 06:53 Pantoprazole 40 Mg Tablet PO 40 mg QDAC BARB Administration Sodium Chloride 10 ml 04/06/24 20:44 Sodium Chloride Flush 0.9% 10 Ml Syringe IVP PRN PRN NEEDED PER PROVIDER ORDERS Sodium Chloride 10 ml 04/07/24 01:00 04/09/24 23:46 Sodium Chloride Flush 0.9% 10 Ml Syringe IVP 10 ml 0100,0900,1700 BARB Administration Sodium Phosphate 500 mg 04/10/24 12:00 Neutra-Phos 250 Mg Tablet PO TIDWM BARB Triamcinolone Acetonide 1 applic 04/07/24 21:00 04/09/24 20:45 Triamcinolone 0.1% Oint 15 Gm Tube TOP 1 applic HS BARB Administration Vancomycin HCl 1 each 04/06/24 20:49 Vancomycin: Pharmacy To Dose [facility] .ONCE PRN PER PHARMACY Zinc Oxide 113 gm 04/07/24 00:03 Cod Liver Oil/Zinc Oxide 113 Gm Tube TOP PRN PRN Skin Care Objective Vital Signs/Intake & Output Reviewed Vital Signs: Yes Vital Signs: Vital Signs x48h Temp Pulse Pulse Resp BP Pulse Ox 04/10/24 08:50 36.5 C 86 18 142/81 H 97 04/10/24 05:19 36.5 C 83 16 141/93 H 92 04/10/24 01:00 36.5 C 80 18 143/94 H 95 Intake & Output: Intake & Output 04/08/24 04/09/24 04/10/24 04/11/24 05:59 05:59 05:59 05:59 Intake Total 2777 / 2777 2130 / 2130 790 / 790 Output Total 100 / 100 Balance 2677 / 2677 2130 / 2130 790 / 790 Weight (kg) 100 kg Objective General Appearance: positive No acute distress and Alert Eyes Bilateral: positive Normal inspection ENT: positive ENT inspection nml Neck: positive Nml inspection Respiratory: positive Chest non-tender Cardiovascular: positive Regular rate & rhythm and No murmur Abdomen: positive Non-tender Rectal: positive Tenderness (Reported) Skin: positive Color nml Extremities: positive Non-tender Neurologic/Psychiatric: positive Oriented x3 Lab Results 04/09/24 06:10 04/09/24 06:10 Other Labs: Lab Results x24hrs 04/09/24 Range/Units 09:40 Stl C. cayetanensis PCR Not Detected (Not Detected) Stool Rotavirus A PCR Not Detected (Not Detected) Stl Adenov F 40/ PCR Not Detected (Not Detected) Stool Astrovirus (PCR) Not Detected (Not Detected) Stool Campylobacter PCR Not Detected (Not Detected) Stl C. diff Tox A/B PCR Not Detected (Not Detected) Stool Cryptosporidium PCR Not Detected (Not Detected) Stl Sh Tox Pr E STEC PCR Not Detected (Not Detected) Stool E coli O157 PCR Not applicable (Not Detected) Stl Enterotoxigenic E PCR Not Detected (Not Detected) Stool EPEC (PCR) Not Detected (Not Detected) Stl E. histolytica PCR Not Detected (Not Detected) Stool Giardia Lamblia PCR Not Detected (Not Detected) Stl P. shigelloides PCR Not Detected (Not Detected) Stool Salmonella PCR Not Detected (Not Detected) Stool Sapovirus (PCR) Not Detected (Not Detected) Stl Shigella/EIEC PCR Not Detected (Not Detected) St Y.enterocolitica PCR Not Detected (Not Detected) Stool Vibrio (PCR) Not Detected (Not Detected) Stl Vibrio cholerae PCR Not Detected (Not Detected) Stl Enteroaggr Ecoli PCR Not Detected (Not Detected) Stl Norovirus GI/GII PCR Detected A (Not Detected) Assessment/Plan Problem List (1) Cancer associated pain: Impression: Oxycodone has been increased to every 4 hours Cautious with loperamide use as patient is norovirus positive (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 Huertas on 04/20/2024 Receives radiation 5 times a week at [facility] (3) Anxiety and depression: Impression: Patient is experiencing anxiety and depression over her course of chemoradiation. She wants to do everything she can so that she can finish her course, and is upset that this may be delayed given how weak she is. We are working with her to figure out what the best plan as, and I feel she would not want to be started on any medication for anxiety/depression (4) Fever and neutropenia: Impression: Continue cefepime, vancomycin while inpatient Daily CBC, CMP Today, she is medically cleared for discharge. PT/OT recommends facility placement. We will have difficulty placing her as she requires chemotherapy and 5 times weekly radiation. Given difficulty in placement, she will likely stay here past the 96-hour khurram (5) Thrombocytopenia: Impression: Plt trending up CBC daily Transfuse platelets if drops below 10 (6) Prediabetes: Impression: Check A1c (7) Migraine: Impression: Headache resolved after one-time dose of oxycodone last night She declined IV migraine cocktail of Toradol, Reglan, Decadron, Benadryl Imitrex as needed Excedrin as needed
[2024-04-10] MEDS: LOPERAMIDE 2 MG CAPSULE PO PRN (10:07)
[2024-04-10] MEDS: NEUTRA-PHOS 250 MG TABLET PO SCH (12:11)
[2024-04-10 12:32] LABS: BASOPHILS % (AUTO) 0.5 %; EOSINOPHILS % (AUTO) 0.5 %; HCT - HEMATOCRIT 29.5 % (37.0-47.0); HGB - HEMOGLOBIN 10.1 g/dL (12.0-16.0); LYMPHOCYTES % (AUTO) 21.9 %; MEAN CORPUSCULAR HEMOGLOBIN 30.9 pg (27.0-31.0); MEAN CORPUSCULAR HGB CONC 34.2 g/dL (32.0-36.0); MEAN CORPUSCULAR VOLUME 90.2 fL (81.0-99.0); MEAN PLATELET VOLUME 11.2 fL (7.9-10.8); MONOCYTES % (AUTO) 15.3 %; NEUTROPHILS % (AUTO) 57.7 %; PLT - PLATELET COUNT 121 10^3/uL (130-450); RED BLOOD COUNT 3.27 10^6/uL (4.20-5.40); RED CELL DISTRIBUTION WIDTH 12.9 % (12.0-15.0)
[2024-04-10 12:38] LABS: ABNORMAL LYMPHS % (MANUAL) 0 %
[2024-04-10 12:42] LABS: CALCIUM 8.6 mg/dL (8.5-10.3); CREATININE 0.6 mg/dL (0.6-1.3); POTASSIUM 3.5 mmol/L (3.5-4.5)
[2024-04-10 12:59] LABS: MAGNESIUM 1.8 mg/dL (1.7-2.3); PHOSPHORUS 2.3 mg/dL (2.5-5.0)
[2024-04-10 13:08] LABS: BAND NEUTROPHILS % (MANUAL) 3 %; DIFFERENTIAL COMMENT MANUAL DIFFERENTIAL; LYMPHOCYTES # (MANUAL) 0.5 10^3/uL (1.5-3.5); LYMPHOCYTES % (MANUAL) 25 %; METAMYELOCYTES % (MANUAL) 2 %; MONOCYTES # (MANUAL) 0.3 10^3/uL (0.0-1.0); NEUTROPHILS # (MANUAL) 1.1 10^3/uL (1.5-6.6); PLATELET ESTIMATE, MANUAL DECREASED (<130,000) (NORMAL); PLATELET MORPHOLOGY NORMAL APPEARANCE (NORMAL); RBC MORPHOLOGY (MULTIPLE) NORMAL APPEARANCE (NORMAL)
[2024-04-10 13:16] LABS: ESTIMATED AVERAGE GLUCOSE 128 mg/dL (70-100); HEMOGLOBIN A1c% 6.1 % (4.27-6.07)
[2024-04-10 18:41] LABS: VANCOMYCIN,TROUGH 6.8 ug/mL
[2024-04-11 07:41] LABS: BASOPHILS % (AUTO) 0.5 %; EOSINOPHILS % (AUTO) 0.5 %; HCT - HEMATOCRIT 28.3 % (37.0-47.0); HGB - HEMOGLOBIN 9.6 g/dL (12.0-16.0); LYMPHOCYTES % (AUTO) 23.5 %; MEAN CORPUSCULAR HEMOGLOBIN 30.7 pg (27.0-31.0); MEAN CORPUSCULAR HGB CONC 33.9 g/dL (32.0-36.0); MEAN CORPUSCULAR VOLUME 90.4 fL (81.0-99.0); MEAN PLATELET VOLUME 10.6 fL (7.9-10.8); MONOCYTES % (AUTO) 17.5 %; NEUTROPHILS % (AUTO) 50.5 %; PLT - PLATELET COUNT 151 10^3/uL (130-450); RED BLOOD COUNT 3.13 10^6/uL (4.20-5.40); RED CELL DISTRIBUTION WIDTH 12.9 % (12.0-15.0)
[2024-04-11 07:45] LABS: ABNORMAL LYMPHS % (MANUAL) 0 %
[2024-04-11 07:52] LABS: CALCIUM 8.1 mg/dL (8.5-10.3); CREATININE 0.5 mg/dL (0.6-1.3); MAGNESIUM 1.6 mg/dL (1.7-2.3)
[2024-04-11 08:02] LABS: BAND NEUTROPHILS % (MANUAL) 7 %; BASOPHILS % (MANUAL) 1 %; LYMPHOCYTES # (MANUAL) 0.5 10^3/uL (1.5-3.5); LYMPHOCYTES % (MANUAL) 27 %; METAMYELOCYTES % (MANUAL) 2 %; MONOCYTES # (MANUAL) 0.4 10^3/uL (0.0-1.0); NUCLEATED RBC (MANUAL) 1 %; RBC MORPHOLOGY (MULTIPLE) 1+ POLYCHROMASIA (NORMAL)
[2024-04-11 08:03] LABS: DIFFERENTIAL COMMENT MANUAL DIFFERENTIAL; PLATELET ESTIMATE, MANUAL NORMAL (130-450,000) (NORMAL); PLATELET MORPHOLOGY 1+ GIANT PLATELETS (NORMAL)
[2024-04-11] MEDS ORDERED: BUTALB/ACETAM/CAFF 50/325/40MG TABLET PO PRN (09:09)
[2024-04-11] MEDS: ASPIRIN 325 MG TABLET PO PRN (09:28)
--- NOTE | 2024-04-11 10:06 | PROVIDER PROGRESS NOTE ---
Subjective Prog Note Date Prog Note Date: 04/11/24 Subjective Pt reports feeling: No change Subjective: Still with intermittent migraine pain Current Medications Current Medications Current Medications: Current Medications Generic Name Dose Route Start Last Admin Trade Name Freq PRN Reason Stop Dose Admin Acetaminophen 650 mg 04/06/24 20:44 04/10/24 20:46 Acetaminophen 325 Mg Tablet PO 650 mg Q4HR PRN Administration Pain 1 to 4, or Fever Aspirin 325 mg 04/11/24 09:16 04/11/24 09:28 Aspirin 325 Mg Tablet PO 325 mg DAILYWM PRN Administration HEADACHE Lidocaine 1 applic 04/07/24 09:00 04/11/24 09:29 Lidocaine Ointment 5% 35.44 Gm Tube TOP 1 applic QID BARB Administration Lidocaine 1 applic 04/10/24 05:56 04/11/24 02:36 Lidocaine Ointment 5% 35.44 Gm Tube TOP 1 applic QID PRN Administration PAIN 5-7 Loperamide HCl 2 mg 04/09/24 10:54 04/10/24 10:07 Loperamide 2 Mg Capsule PO 2 mg QID PRN Administration Diarrhea Losartan Potassium 50 mg 04/07/24 09:00 04/11/24 09:28 Losartan 50 Mg Tablet PO 50 mg DAILY BARB Administration Multi-Ingredient Ointment 1 applic 04/07/24 00:03 Zinc Oxide 20% Oint 30 Gm Tube TOP PRN PRN Skin Care Multivitamins 1 tab 04/07/24 09:00 04/11/24 09:28 Multivitamin Tablet PO 1 tab DAILYWM BARB Administration Nystatin 1 applic 04/07/24 09:00 04/11/24 09:05 Nystatin Powder 15 Gm TOP Not Given DAILY BARB Ondansetron HCl 4 mg 04/06/24 20:44 Ondansetron Odt 4 Mg Tablet TL Q6HR PRN Nausea / Vomiting Oxycodone HCl 5 mg 04/09/24 15:41 04/09/24 23:45 Oxycodone 5 Mg Tablet PO 5 mg Q4H PRN Administration PAIN 7-10 Pantoprazole Sodium 40 mg 04/07/24 08:00 04/11/24 06:52 Pantoprazole 40 Mg Tablet PO 40 mg QDAC BARB Administration Sodium Chloride 10 ml 04/06/24 20:44 Sodium Chloride Flush 0.9% 10 Ml Syringe IVP PRN PRN NEEDED PER PROVIDER ORDERS Sodium Chloride 10 ml 04/07/24 01:00 04/11/24 09:29 Sodium Chloride Flush 0.9% 10 Ml Syringe IVP Not Given 0100,0900,1700 BARB Sodium Phosphate 500 mg 04/10/24 12:00 04/11/24 09:28 Neutra-Phos 250 Mg Tablet PO 500 mg TIDWM BARB Administration Triamcinolone Acetonide 1 applic 04/07/24 21:00 04/10/24 20:47 Triamcinolone 0.1% Oint 15 Gm Tube TOP 1 applic HS BARB Administration Zinc Oxide 113 gm 04/07/24 00:03 Cod Liver Oil/Zinc Oxide 113 Gm Tube TOP PRN PRN Skin Care Objective Vital Signs/Intake & Output Reviewed Vital Signs: Yes Vital Signs: Vital Signs x48h Temp Pulse Resp BP Pulse Ox 04/11/24 07:51 36.4 C L 85 18 140/93 H 94 Intake & Output: Intake & Output 04/09/24 04/10/24 04/11/24 04/12/24 05:59 05:59 05:59 05:59 Intake Total 2130 / 2130 790 / 790 810 / 810 Output Total 0 / 0 Balance 2130 / 2130 790 / 790 810 / 810 Weight (kg) 100 kg Objective General Appearance: positive No acute distress and Alert Eyes Bilateral: positive Normal inspection ENT: positive ENT inspection nml Neck: positive Nml inspection Respiratory: positive Chest non-tender Cardiovascular: positive Regular rate & rhythm and No murmur Abdomen: positive Non-tender Rectal: positive Tenderness (Reported) Skin: positive Color nml Extremities: positive Non-tender Neurologic/Psychiatric: positive Oriented x3 Lab Results 04/11/24 07:30 04/11/24 07:30 Other Labs: Lab Results x24hrs 04/11/24 04/10/24 04/10/24 Range/Units 07:30 18:00 11:52 WBC 2.0 L* 2.0 L* (4.8-10.8) x10^3/uL RBC 3.13 L 3.27 L (4.20-5.40) 10^6/uL Hgb 9.6 L 10.1 L (12.0-16.0) g/dL Hct 28.3 L 29.5 L (37.0-47.0) % MCV 90.4 90.2 (81.0-99.0) fL MCH 30.7 30.9 (27.0-31.0) pg MCHC 33.9 34.2 (32.0-36.0) g/dL RDW 12.9 12.9 (12.0-15.0) % Plt Count 151 121 L (130-450) 10^3/uL MPV 10.6 11.2 H (7.9-10.8) fL Neut # (Auto) Not Reportable Not Reportable Lymph # (Auto) Not Reportable Not Reportable Rolette # (Auto) Not Reportable Not Reportable Eos # (Auto) Not Reportable Not Reportable Baso # (Auto) Not Reportable Not Reportable Absolute Nucleated RBC Not Reportable Not Reportable Total Counted 100 100 Band Neuts % (Manual) 7 3 (0 - 10) % Abnorm Lymph % (Manual) 0 0 % Metamyelocytes % 2 H 2 H ( - 0) % Nucleated RBC % Not Reportable Not Reportable Neutrophils # (Manual) 1.0 L 1.1 L (1.5-6.6) 10^3/uL Lymphocytes # (Manual) 0.5 L 0.5 L (1.5-3.5) 10^3/uL Monocytes # (Manual) 0.4 0.3 (0.0-1.0) 10^3/uL Eosinophils # (Manual) 0.0 0.0 (0-0.7) 10^3/uL Basophils # (Manual) 0.0 0.0 (0-0.1) 10^3/uL Nucleated RBCs 1 % Differential Comment MANUAL DIFFERENTIAL MANUAL DIFFERENTIAL Platelet Estimate NORMAL (130-450,000) DECREASED (<130,000) (NORMAL) Platelet Morphology 1+ GIANT PLATELETS NORMAL APPEARANCE (NORMAL) RBC Morph Micro Appear 1+ POLYCHROMASIA NORMAL APPEARANCE (NORMAL) Sodium 138 136 (135-145) mmol/L Potassium 3.0 L 3.5 (3.5-4.5) mmol/L Chloride 103 105 (101-111) mmol/L Carbon Dioxide 27 25 (21-32) mmol/L Anion Gap 8.0 6.0 (6-13) BUN 10 16 (6-20) mg/dL Creatinine 0.5 L 0.6 (0.6-1.3) mg/dL Estimated GFR (MDRD) 118 95 (>89) Glucose 86 81 (74-104) mg/dL Estimat Average Glucose 128 H (70-100) mg/dL Hemoglobin A1c % 6.1 H (4.27-6.07) % Calcium 8.1 L 8.6 (8.5-10.3) mg/dL Phosphorus 3.0 2.3 L (2.5-5.0) mg/dL Magnesium 1.6 L 1.8 (1.7-2.3) mg/dL Last Dose Date 04/07/24 Last Dose Time 1900 Vancomycin Trough 6.8 ug/mL Assessment/Plan Problem List (1) 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 Huertas on 04/20/2024 Receives radiation 5 times a week at [facility] 04/11/2024: Patient has been medically cleared for 2 days. Placement will be difficult given chemoradiation needs at discharge (2) Migraine: Impression: Headache resolved after one-time dose of oxycodone last night She declined IV migraine cocktail of Toradol, Reglan, Decadron, Benadryl Imitrex as needed Excedrin as needed 04/11/2024: Patient is asking for Excedrin. We do not have this on formulary, and she does not want to try Fioricet or Midol. I have encouraged her to ask family to bring in her home supply of Excedrin so we can give it to her. Until then, she has as needed Tylenol and aspirin and has been given drinks with caffeine. She states she is normally a coffee drinker, but is afraid that it will exacerbate her diarrhea (3) Cancer associated pain: Impression: Oxycodone has been increased to every 4 hours Cautious with loperamide use as patient is norovirus positive (4) Anxiety and depression: Impression: Patient is experiencing anxiety and depression over her course of chemoradiation. She wants to do everything she can so that she can finish her course, and is upset that this may be delayed given how weak she is. We are working with her to figure out what the best plan as, and I feel she would not want to be started on any medication for anxiety/depression (5) Fever and neutropenia: Impression: Completed 5-day course of cefepime, vancomycin for febrile neutropenia and probable UTI Daily CBC, CMP Today, she is medically cleared for discharge. PT/OT recommends facility placement. We will have difficulty placing her as she requires chemotherapy and 5 times weekly radiation. Given difficulty in placement, she will likely stay here past the 96-hour khurram (6) Thrombocytopenia: Impression: Plt trending up CBC daily Transfuse platelets if drops below 10 (7) Prediabetes: Impression: A1c 6.1.
[2024-04-11] MEDS: POTASSIUM CHLORIDE 20 MEQ TABLET PO SCH (14:22)
[2024-04-11] MEDS: MAGNESIUM SULFATE 2 GRAM 2 GM/50 ML BAG IV ONE (14:22)
[2024-04-12 05:04] LABS: BASOPHILS % (AUTO) 0.9 %; EOSINOPHILS % (AUTO) 0.4 %; HCT - HEMATOCRIT 30.7 % (37.0-47.0); HGB - HEMOGLOBIN 10.4 g/dL (12.0-16.0); LYMPHOCYTES # (AUTO) 0.6 10^3/uL (1.5-3.5); LYMPHOCYTES % (AUTO) 24.3 %; MEAN CORPUSCULAR HEMOGLOBIN 30.8 pg (27.0-31.0); MEAN CORPUSCULAR HGB CONC 33.9 g/dL (32.0-36.0); MEAN CORPUSCULAR VOLUME 90.8 fL (81.0-99.0); MEAN PLATELET VOLUME 11.1 fL (7.9-10.8); MONOCYTES # (AUTO) 0.4 10^3/uL (0.0-1.0); MONOCYTES % (AUTO) 17.4 %; NEUTROPHILS # (AUTO) 1.1 10^3/uL (1.5-6.6); NEUTROPHILS % (AUTO) 45.5 %; NRBC ABSOLUTE COUNT (AUTO) 0.05 x10^3/uL; NUCLEATED RED BLOOD CELLS AUTO 2.1 /100WBC; PLT - PLATELET COUNT 242 10^3/uL (130-450); RED BLOOD COUNT 3.38 10^6/uL (4.20-5.40); RED CELL DISTRIBUTION WIDTH 13.2 % (12.0-15.0); WHITE BLOOD COUNT 2.4 x10^3/uL (4.8-10.8)
[2024-04-12 05:17] LABS: CALCIUM 8.4 mg/dL (8.5-10.3); CREATININE 0.5 mg/dL (0.6-1.3); POTASSIUM 3.5 mmol/L (3.5-4.5)
[2024-04-12 05:38] LABS: DIFFERENTIAL COMMENT MANUAL=AUTO DIFF; PLATELET ESTIMATE, MANUAL NORMAL (130-450,000) (NORMAL); PLATELET MORPHOLOGY NORMAL APPEARANCE (NORMAL); RBC MORPHOLOGY (MULTIPLE) NORMAL APPEARANCE (NORMAL); WBC MORPHOLOGY (MULTIPLE) NORMAL APPEARANCE (NORMAL)
[2024-04-12] MEDS: NEUTRA-PHOS 250 MG TABLET PO SCH (08:38)
--- NOTE | 2024-04-12 14:20 | Palliative Care ---
Vitals Vital Signs 04/06/24 16:00 04/06/24 17:29 04/06/24 18:53 04/06/24 19:50 04/06/24 20:13 04/06/24 21:00 04/06/24 21:45 04/06/24 22:41 04/06/24 22:48 04/07/24 04:49 04/07/24 08:20 04/07/24 10:40 04/07/24 11:32 04/07/24 14:46 04/07/24 18:04 04/07/24 20:30 04/07/24 23:59 04/08/24 03:42 04/08/24 08:23 04/08/24 14:23 04/08/24 19:16 04/08/24 21:26 04/09/24 04:14 04/09/24 09:00 04/09/24 13:00 04/09/24 13:40 04/09/24 17:00 04/09/24 21:00 04/10/24 01:00 04/10/24 05:19 04/10/24 08:50 04/10/24 21:17 04/10/24 23:40 04/11/24 07:51 04/11/24 18:25 04/12/24 00:01 04/12/24 08:31 04/12/24 14:20 Height 5 ft 6 in 5 ft 2 in 5 ft 2 in 5 ft 2 in Weight 180 lb 220 lb 7.396 oz 220 lb 7.396 oz 220 lb 7.396 oz BMI 40.7 40.7 BP 102/65 93/47 L 90/57 L 92/60 96/48 L 90/54 L 101/63 95/41 L 116/57 L 115/48 L 96/61 96/61 106/55 L 96/61 102/72 106/58 L 105/70 102/55 L 117/55 L 1 23/58 L 142/74 H 153/91 H 164/92 H 164/97 H 151/94 H 157/96 H 143/94 H 141/93 H 142/81 H 146/86 H 135/95 H 140/93 H 148/85 H 143/88 H 159/94 H Respiration 18 18 19 16 16 16 18 22 20 20 20 16 20 18 24 20 20 16 20 20 22 16 18 16 18 22 20 18 18 18 18 Pulse 110 H 110 H 101 H 101 H 103 H 96 H 97 H 91 H 86 98 H 88 88 82 88 85 85 89 85 89 82 86 89 73 82 96 H 90 80 83 86 86 85 85 86 83 79 Temp 99.7 F 102.3 F H 99.3 F 98.8 F 99.0 F 97.7 F 98.1 F 97.9 F 9 8.6 F 98.4 F 97.9 F 97.7 F 98.2 F 98.6 F 98.4 F 97.9 F 207.9 F H 97.9 F 97.9 F 98.1 F 97.7 F 97.7 F 97.7 F 98.1 F 97.7 F 97.5 F L 97.9 F 98.2 F 97.5 F L Temp Source Oral Oral Oral Temporal Artery Scan Oral Temporal Artery Sc an Temporal Artery Scan Temporal Artery Scan Skin Skin Skin Temporal Artery Scan Temporal Artery Scan Temporal Artery Scan Temporal Artery Scan Temporal Arter y Scan Temporal Artery Scan Temporal Artery Scan Temporal Artery Scan Temporal Artery Scan Temporal Artery Scan Tympanic Oral Temporal Artery Scan Temporal Artery Scan Temporal Artery Scan Temporal Artery Scan Temporal Artery Scan Or al Pulse Oximetry 93 97 96 97 96 97 96 95 99 98 98 97 95 97 98 96 97 96 96 96 96 94 95 92 97 96 95 94 95 93 97 Meds/Allgy Home Medications Ambulatory Orders Medication Instructions Recorded Confirmed losartan 50 mg tablet 50 mg PO DAILY 10/11/20 04/07/24 magnesium carb,citrate,oxide 300 mg PO DAILY 01/19/24 04/07/24 (Magnesium Complex) multivitamin-ferrous 1 tab PO DAILY 01/19/24 04/07/24 fumarate-folic acid 18 mg-400 mcg tablet (Centrum Women) rosuvastatin 20 mg tablet 20 mg PO DAILY 01/19/24 04/07/24 lidocaine 5 % topical ointment 1 applic topical QID #35.44 grams 01/26/24 04/07/24 ondansetron HCl 8 mg tablet 8 mg PO TID #90 tabs 03/23/24 04/07/24 prochlorperazine maleate 10 mg 10 mg PO TID #90 tabs 03/23/24 04/07/24 tablet (Compazine) oxycodone 5 mg capsule 5 mg PO QDAY PRN pain (scale score 03/24/24 04/07/24 7-10) #35 caps nystatin 100,000 unit/gram topical 1 applic topical QDAY #30 grams 03/31/24 04/07/24 powder triamcinolone acetonide 0.05 % 1 applic topical QDAY #110 grams 03/31/24 04/07/24 topical ointment acetaminophen 500 mg tablet 500 mg PO Q4H PRN pain 04/07/24 04/07/24 njqbral-efeledwarggdq-ywqkfext 250 1 tab PO Q4H PRN headache 04/07/24 04/07/24 mg-250 mg-65 mg tablet (Excedrin Extra Strength) diphenhydramine 25 1 tab PO HS PRN pain 04/07/24 04/07/24 mg-acetaminophen 500 mg tablet (Acetaminophen PM Extra Strength) omeprazole 20 mg capsule,delayed 20 mg PO DAILY 04/07/24 04/07/24 release polyethylene glycol 3350 17 17 g PO DAILY PRN constipation 04/07/24 04/07/24 gram/dose oral powder sumatriptan succinate 50 mg tablet 50 mg PO DAILY PRN migraine 04/07/24 04/07/24 (Imitrex) headache Allergies Allergies Allergy/AdvReac Type Severity Reaction Status Date / Time meperidine (From Demerol) Allergy Cramps Verified 04/06/24 16:00 CC HPI Chief Complaint Chief Complaint: anal cancer; right buttock wound; anorexia; anxiety; norovirus History Obtained From Records Reviewed: inpatient History obtained from: patient History of Present Illness HPI: This is an 83-year-old woman who has had a long complicated course regarding and a recurrent/nonhealing anal fissure. 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 She has started definitive treatment with radiation, with planned course of 30 treatments, has received 8, as well as chemotherapy of mitomycin, and 4-day infusion of 5-FU. Her treatment was on 03/23/2024, she was experiencing diarrhea, mucositis, rash, and poor intake with toxicity check on 03/31. She unfortunately presented to the ED after a significant fall related to weakness and diarrhea, as well as ongoing anorexia on 04/06 with pancytopenia, fever, has received antibiotics. In follow up today, she still has significant rectal pain, last diarrhea stool was 2:00 am, this exacerbated pain. She did test positive for norovirus 04/10, which would explain the persistent diarrhea at this point, and is starting to slow down. On examination she has slough over a crater on right buttock that she has been calling her "fissure" that is angry looking and very painful, it does look worse than original wound photo on admit. She also has perirectal redness extending out from butt crevass, suspect may also have candidiasis. She will be on precautions until 48 hours after last symptoms per infection control nurse. Patient has had poor intake through most of hospitalization, feels a little better about eating today, discussed adding mirtazipine for appetite, is open to this, may also help with low grade nausea and sleep which is difficult for her. She has a lot of anxiety as she is trying to navigate placement, increased need for help and wound care, and strengthening with need to resume treatment. I did speak with Dr. Huertas, patient will NOT receive treatment next week with current status and needs to take a couple of weeks off depending on discharge plans, will reset for check in in about 2-3 weeks. This was share with patient. Palliative Care Performance Status Performance status: Patient's previous status prior to treatment, independent in ADLS, driving, and though sedentary was functional. Has had functional decline over last several weaks, with LE weakness and now a fairly elaborate need for perirectal care. Is working with PT, as well as trying to add extra "loops" with bathroom trips to build endurance Palliative Care Discussion: Patient is appropriately discouraged with complications with norovirus, continued rectal pain and difficulty managing. She is thankful that the diarrhea has slowed down, but is concerned about impact on her treatment plan. Did reach out to Dr. Huertas, did discuss his feedback, and need to take a break for at least 2 or 3 weeks until patient improves as far as health. Still pending acceptance for transition to SNF for support. Hope is to have it up [facility], to be able to resume treatment as soon as appropriate. Did speak at length to Joan [phone] regarding mother's needs, norovirus, current plan and complications regarding her treatment plan. We did discuss is a "rock and a hard place", patient has always been strongly independent, and needs assistance. Joan works full-time and has own business, is trying to be supportive but would not be able to be a caregiver in this scenario. [facility] Medical History Medical History (Updated 04/12/24 @ 15:16 by MACI Locke) Rosacea (07/15/22) History of torn meniscus of left knee (07/15/22) Hemorrhoids (07/15/22) Cataract, bilateral (07/15/22) Surgical History Surgical History (Updated 02/18/24 @ 13:17 by Basilio Nick CNA) History of tonsillectomy History of appendectomy H/O: hysterectomy Family History Family History (Updated 02/18/24 @ 13:20 by Basilio Nick CNA) Mother No problems noted. Social History Social History (Updated 02/23/24 @ 08:37 by Tracy Baltazar RN, [facility]) Smoking Status: Never smoker Do you dip or chew tobacco?: No Do you vape?: No Relationship: Level: Independent Home Mobility Equipment: Cane Do you feel safe in your home environment?: Yes Suffered physical, verbal, emotional, or financial abuse?: No ETOH Use: Wine Frequency: Daily Number of Amount/day: 2 (2 glasses of wine for dinner, last used 4 days ago) Substance Use: denies use POLST Patient has POLST: Yes POLST Status: Limited Interventions Review of Systems Constitutional Reports: Fatigue, Weakness, Changes in appetite or eating habits, Poor appetite, Weight loss and Change in sleep pattern; Denies: Fever or Chills Ears, nose, mouth, and throat Reports: Mouth pain (improved with resolution of mouth sores) and Dry mouth Cardiovascular Reports: shortness of breath with exertion and Decreased exercise tolerance Respiratory Reports: Shortness of breath and SOB with exertion; Denies: SOB at rest Gastrointestinal Reports: Poor appetite (eating a few more bites today), Diarrhea (last episode early am , none today thus far), Painful bowel movements and Rectal pain Genitourinary Denies: Painful urination Musculoskeletal Reports: Joint pain (bilateral knee pain), Stiffness and Muscle weakness (has been walking with walker; doing better than Friday) Integumentary/Breast Reports: Skin pain (reports "fissures" 9/10 pain after bowel movement; reports lidocaine helps) and Changing lesion (see HPI) Neurological Reports: Headache (is hoping to try excedrin; asked daughter to bring in) and Abnormal gait (LE weakness needing rolling walker) Psychiatric Reports: Depression and Anxiety Endocrine Reports: Fatigue Hematologic/Lymphatic Reports: Anemia, Easy bruising (large bruise with fall) and Easy bleeding Exam Constitutional Patient with large body habitus; appears quite pale and weak; pain behaviors with unable to sit or move any pressure on rectal area; expressing moderate distress Eyes no scleral icterus Neck/C-Spine trachea midline Respiratory respiratory effort with activity Gastrointestinal abdomen obese Extremities gait improved; needing walker; Psychiatry oriented x3 anxiety and expressing overwhelm; tracking conversation better and engages easily Impression Impression: This is an 83-year-old woman getting treated for anal cancer, unfortunately she is at the very beginning of a very rigorous treatment plan. She has been acutely hospitalized for fever and neutropenia, has had functional decline, and increasing symptom burden. She has been dx with norovirus, she is starting to improve overall, but will need SNF support both for nursing and rehab care. Palliative care providing support for coordination of care and symptom management, counseling for adjustment to illness. . Assessment & Plan Assessment & Plan (1) Cancer associated pain: Assessment: Patient with pain in rectal area, had used oxycodone 5 mg with relief when it gets "real bad", encouraged more frequent use, but remains with biases. She does get some relief with lidocaine, she does have open wound and concern for candidiasis, will need close monitoring and care. Code(s): G89.3 - Neoplasm related pain (acute) (chronic) (2) Anal squamous cell carcinoma: Assessment: Patient very distressed regarding interruption in her treatment, unfortunately she is stuck between a rock and a hard place given she does need to continue treatment particularly with squamous cell, but also expected further severity of symptoms of pain and diarrhea. She is already struggling to be able to meet her personal care needs, pericare, and needs further assistance and nursing support to be able to manage this. Code(s): C21.0 - Malignant neoplasm of anus, unspecified Plan: Had spoken to Dr. oCffey last Friday, hoping to have patient in [facility] so when patient able to resume treatment. Spoke to Dr. Huertas today, is not appropriate for the chemotherapy until recovered from acute illness/hospitalization, will cancel appointment for next week. When patient to discharge will evaluate about follow up appointment for check in and further treatment planning, needs to be functional and able to tolerate, counseling with patient regarding next step, modification often of tx plan to avoid future complications. Acknowledged concerns for impact on efficacy of patient in the future. (3) Fissure, anal: Assessment: This is multifactorial, both with the anal cancer, previous nonhealing fissures, as well as radiation and most likely fallout of mucositis. Patient needs more aggressive management of KALEE care, has been doing sitz bath's at home. She does have some lidocaine ointment here that has been helpful, would recommend scheduled sitz bath at least 3-4 times a day, as well as increase protection and ointments of perirectal area. This area is at high risk for further infection and breakdown, important to be monitored. Code(s): K60.2 - Anal fissure, unspecified (4) Anorexia: Assessment: Patient with poor intake, and continues weight loss. Patient would benefit and is willing to try mirtazipine, would start with 7.5 mg at night for sleep, appetite, and mood, if tolerated increase to 15 mg in one week. Code(s): R63.0 - Anorexia Plan Follow up with daughter, social scientist, and hospitalist, will continue to follow to discharge.
[2024-04-13 07:09] LABS: MAGNESIUM 1.8 mg/dL (1.7-2.3)
--- NOTE | 2024-04-13 08:08 | PROVIDER PROGRESS NOTE ---
Subjective Prog Note Date Prog Note Date: 04/13/24 Subjective Pt reports feeling: No change Current Medications Current Medications Current Medications: Current Medications Generic Name Dose Route Start Last Admin Trade Name Catherine PRN Reason Stop Dose Admin Acetaminophen 650 mg 04/06/24 20:44 04/11/24 23:56 Acetaminophen 325 Mg Tablet PO 650 mg Q4HR PRN Administration Pain 1 to 4, or Fever Aspirin 325 mg 04/11/24 09:16 04/11/24 09:28 Aspirin 325 Mg Tablet PO 325 mg DAILYWM PRN Administration HEADACHE Lidocaine 1 applic 04/07/24 09:00 04/12/24 20:13 Lidocaine Ointment 5% 35.44 Gm Tube TOP 1 applic QID BARB Administration Lidocaine 1 applic 04/10/24 05:56 04/12/24 03:30 Lidocaine Ointment 5% 35.44 Gm Tube TOP 1 applic QID PRN Administration PAIN 5-7 Loperamide HCl 2 mg 04/09/24 10:54 04/11/24 18:17 Loperamide 2 Mg Capsule PO 2 mg QID PRN Administration Diarrhea Losartan Potassium 50 mg 04/07/24 09:00 04/12/24 08:38 Losartan 50 Mg Tablet PO 50 mg DAILY BARB Administration Multi-Ingredient Ointment 1 applic 04/07/24 00:03 Zinc Oxide 20% Oint 30 Gm Tube TOP PRN PRN Skin Care Multivitamins 1 tab 04/07/24 09:00 04/12/24 08:38 Multivitamin Tablet PO 1 tab DAILYWM BARB Administration Nystatin 1 applic 04/07/24 09:00 04/12/24 08:39 Nystatin Powder 15 Gm TOP Not Given DAILY BARB Ondansetron HCl 4 mg 04/06/24 20:44 Ondansetron Odt 4 Mg Tablet TL Q6HR PRN Nausea / Vomiting Oxycodone HCl 5 mg 04/09/24 15:41 04/12/24 20:17 Oxycodone 5 Mg Tablet PO 5 mg Q4H PRN Administration PAIN 7-10 Pantoprazole Sodium 40 mg 04/07/24 08:00 04/13/24 06:41 Pantoprazole 40 Mg Tablet PO 40 mg QDAC BARB Administration Sodium Chloride 10 ml 04/06/24 20:44 Sodium Chloride Flush 0.9% 10 Ml Syringe IVP PRN PRN NEEDED PER PROVIDER ORDERS Sodium Chloride 10 ml 12/04/24 01:00 04/13/24 00:32 Sodium Chloride Flush 0.9% 10 Ml Syringe IVP 10 ml 0100,0900,1700 BARB Administration Sodium Phosphate 250 mg 04/12/24 09:00 04/12/24 17:30 Neutra-Phos 250 Mg Tablet PO 250 mg TIDWM BARB Administration Triamcinolone Acetonide 1 applic 04/07/24 21:00 04/12/24 20:13 Triamcinolone 0.1% Oint 15 Gm Tube TOP 1 applic HS BARB Administration Zinc Oxide 113 gm 04/07/24 00:03 Cod Liver Oil/Zinc Oxide 113 Gm Tube TOP PRN PRN Skin Care Objective Vital Signs/Intake & Output Reviewed Vital Signs: Yes Vital Signs: Vital Signs x48h Temp Pulse Resp BP Pulse Ox 04/13/24 01:26 36.5 C 85 16 127/77 96 Intake & Output: Intake & Output 04/10/24 04/11/24 04/12/24 04/13/24 23:59 23:59 23:59 23:59 Intake Total 810 / 810 680 / 680 1606 / 1606 200 / 200 Output Total 0 / 0 Balance 810 / 810 680 / 680 1606 / 1606 200 / 200 Weight (kg) 100 kg Objective General Appearance: positive No acute distress and Alert Eyes Bilateral: positive Normal inspection ENT: positive ENT inspection nml Neck: positive Nml inspection Respiratory: positive Chest non-tender Cardiovascular: positive Regular rate & rhythm and No murmur Abdomen: positive Non-tender Rectal: positive Tenderness (Reported) Skin: positive Color nml Extremities: positive Non-tender Neurologic/Psychiatric: positive Oriented x3 Lab Results 04/12/24 04:48 04/12/24 04:48 Other Labs: Lab Results x24hrs 04/13/24 Range/Units 06:30 Phosphorus 3.0 (2.5-5.0) mg/dL Magnesium 1.8 (1.7-2.3) mg/dL Assessment/Plan Problem List (1) Cancer associated pain: Impression: Oxycodone 5 mg every 4 hours Cautious with loperamide use as patient is norovirus positive (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 Huertas on 04/20/2024 Receives radiation 5 times a week at [facility] (3) Fissure, anal: Impression: Pain management as above (4) Anorexia: Impression: Nutrition consult Mirtazapine 7.5 mg Daily (5) Migraine: Impression: Headache resolved after one-time dose of oxycodone last night She declined IV migraine cocktail of Toradol, Reglan, Decadron, Benadryl Imitrex as needed Excedrin as needed 04/11/2024: Patient is asking for Excedrin. We do not have this on formulary, and she does not want to try Fioricet or Midol. I have encouraged her to ask family to bring in her home supply of Excedrin so we can give it to her. Until then, she has as needed Tylenol and aspirin and has been given drinks with caffeine. She states she is normally a coffee drinker, but is afraid that it will exacerbate her diarrhea (6) Anxiety and depression: Impression: Patient is experiencing anxiety and depression over her course of chemoradiation. She wants to do everything she can so that she can finish her course, and is upset that this may be delayed given how weak she is. We are working with her to figure out what the best plan as, and I feel she would not want to be started on any medication for anxiety/depression (7) Fever and neutropenia: Impression: Completed 5-day course of cefepime, vancomycin for febrile neutropenia and probable UTI Daily CBC, CMP Today, she is medically cleared for discharge. PT/OT recommends facility placement. We will have difficulty placing her as she requires chemotherapy and 5 times weekly radiation. Given difficulty in placement, she will likely stay here past the 96-hour khurram (8) Thrombocytopenia: Impression: Plt trending up CBC daily Transfuse platelets if drops below 10 (9) Prediabetes: Impression: A1c 6.1.
[2024-04-13] MEDS: MIRTAZAPINE 15 MG TABLET PO SCH (20:41)
--- NOTE | 2024-04-14 17:25 | PROVIDER PROGRESS NOTE ---
Progress Note Progress Note Progress Note: April 14, 2024 5:13 PM This shalonda lady is still unhappy at the idea of leaving here. She feels it is too abrupt of her departure and shares that opinion with me repeatedly. Yesterday when we attempted to discharge her, she appealed her discharge. Today, Medicare has denied her continued stay, and she should be ready for discharge by tomorrow. Per PT notes yesterday: Transfers to edge of bed with additional time to complete task, mod 1 using bed rail. Sit to stand with front wheel walker and standby assist, ambulation to bathroom approximately 15 feet with step through pattern and transfers to toilet mod 1. Has BM and states she needs lidocaine cream prior to donning briefs. RN intended to assist with KALEE care and medication. Patient donned/doffed brief mod 1 but requires max a for [facility] primarily due to concerns about open skin. Patient then ambulates in room with PT. States for rest break and immediately states need to return to the bathroom. Patient states she feels comfortable calling for an assist when ready to return to room. Call light in reach. RN informed of patient location and situation. Agrees to return to patient care when patient ready. She was able to ambulate using her walker from the bathroom twice during the PT session. Each walk was 30 feet x 2 repetitions. She then walked another 50 feet x 2 rounds within the room using the walker. They are recommending a front wheel walker at home. They recognize the patient's feeling of toileting difficulty and suggest that she get caregiver support at home. They do feel she is ready for discharge to home. They also recommend home health PT. I was able to update her daughter and daughter was making sure that a walker was going to be provided through PT. She was also asking us to do sits toileting instruction using Epsom salts and baking soda. I updated her DPOA on her white cell count. I also described her mom as walking 100 feet with her walker. And getting up to go to the bathroom independently from her bed to the bathroom in her room. The patient denies chest pain, palpitations, cough, shortness of breath. Her main discomfort is from her rectal pain that initially began as a fissure, progressed to being anal cancer that is HPV positive, to radiation discomfort. And discomfort from diarrhea. She was positive for norovirus and she is in contact precautions. Exam: Alert and oriented elderly female. She is repeatedly stating that she is not ready for discharge due to insecurity regarding hygiene with toiletting. Daughter describes her as a very bright and intelligent person who does not process information quickly and when she feels overwhelmed she feels "stupid", and then lashes out when she feels overwhelmed. She looks her stated age. Appears tired. But well-nourished, well-developed 5 foot 2 inches tall, and 100 kg. Blood pressure is 136/66. Pulse is 77. Respirations 14. Temperature 36.2. O2 sat 97% on room air. Oral mucosa is well-hydrated Neck is supple Lungs are clear to auscultation and percussion and she does not have crackles, rhonchi or wheezing. When she gets up out of the bed to go to the bathroom, or sits to speak to me at length, there is no increased respiratory effort and she is comfortable from a respiratory perspective. Regular rate and rhythm without any tachycardia Abdomen is soft, nontender, hypoactive bowel sounds. No masses. Extremities without edema and she has full range of motion Neurologically she is alert and oriented to person, place, time and situation. Lab: BMP was normal on April 12. CBC on the had a white cell count had come up to 2.4. Platelets had come up to 242 from 30. Urine culture with less than 10,000 colony-forming units in April 06 Blood cultures negative on April 06 Assessment/plan 1. Diarrhea and rectal pain. Diarrhea has multiple etiologies. This patient has an anal rectal squamous cancer that presented as a fissure. She has had radiation. And now she has norovirus. All of this is contributed to frequent loose bowel stools. She had 2 yesterday. 1 today. She is in contact precautions. She is on loperamide. She was on maintenance IV fluids but now that she is well-hydrated those have been stopped. Plan: I have written an order for nursing to start instructing her on the use of sitz bath. Daughter feels that that is the main insecurity mom has about getting home. I Have also written for home health PT and OT. 2. Neutropenic fever. Was the reason for admission. That has resolved. Will check CBC and BMP in the morning. Treatment was 5 days of cefepime, vancomycin. This was the main reason for hospitalization and she has been medically cleared for discharge starting April 13. 3. Cancer associated pain/rectal fissure pain is being treated with oxycodone 5 mg every 4 hours. Yesterday she had 1 dose. Today she has had none so far. She is also getting zinc oxide cream to the tender area and is also being instructed on the use of sitz bath's today. 4. Thrombocytopenia has resolved. 5. Hyperglycemia was evaluated with an A1c that was 6.1%. She is felt to be "prediabetic". With this admission she has not required regular dosing of insulin.
[2024-04-15 06:34] LABS: CALCIUM 8.3 mg/dL (8.5-10.3); CREATININE 0.7 mg/dL (0.6-1.3); POTASSIUM 3.1 mmol/L (3.5-4.5)
[2024-04-15 06:39] LABS: BASOPHILS % (AUTO) 0.7 %; EOSINOPHILS % (AUTO) 0.2 %; HCT - HEMATOCRIT 30.8 % (37.0-47.0); HGB - HEMOGLOBIN 10.3 g/dL (12.0-16.0); LYMPHOCYTES % (AUTO) 17.8 %; MEAN CORPUSCULAR HEMOGLOBIN 31.3 pg (27.0-31.0); MEAN CORPUSCULAR HGB CONC 33.4 g/dL (32.0-36.0); MEAN CORPUSCULAR VOLUME 93.6 fL (81.0-99.0); MEAN PLATELET VOLUME 10.6 fL (7.9-10.8); MONOCYTES % (AUTO) 23.8 %; NEUTROPHILS % (AUTO) 46.8 %; PLT - PLATELET COUNT 344 10^3/uL (130-450); RED BLOOD COUNT 3.29 10^6/uL (4.20-5.40); RED CELL DISTRIBUTION WIDTH 14.4 % (12.0-15.0); WHITE BLOOD COUNT 4.5 x10^3/uL (4.8-10.8)
[2024-04-15 07:19] LABS: SLIDE REVIEW? Indicated
[2024-04-15 07:20] LABS: ABNORMAL LYMPHS % (MANUAL) 0 %
[2024-04-15 07:36] LABS: BAND NEUTROPHILS % (MANUAL) 11 %; LYMPHOCYTES % (MANUAL) 22 %; METAMYELOCYTES % (MANUAL) 4 %; MONOCYTES # (MANUAL) 0.8 10^3/uL (0.0-1.0); MYELOCYTES % (MANUAL) 1 %; NEUTROPHILS # (MANUAL) 2.4 10^3/uL (1.5-6.6); NUCLEATED RBC (MANUAL) 2 %; PROMYELOCYTES % (MANUAL) 1 %
[2024-04-15 07:39] LABS: DIFFERENTIAL COMMENT MANUAL DIFFERENTIAL; PLATELET ESTIMATE, MANUAL NORMAL (130-450,000) (NORMAL); PLATELET MORPHOLOGY NORMAL APPEARANCE (NORMAL); WBC MORPHOLOGY (MULTIPLE) 1+ TOXIC G (NORMAL)
[2024-04-15 08:20] VITALS: O2SAT 96
--- NOTE | 2024-04-15 10:24 | PROVIDER PROGRESS NOTE ---
Subjective Prog Note Date Prog Note Date: 04/12/24 Subjective Pt reports feeling: No change Current Medications Current Medications Current Medications: Current Medications Generic Name Dose Route Start Last Admin Trade Name Catherine PRN Reason Stop Dose Admin Acetaminophen 650 mg 04/06/24 20:44 04/13/24 16:43 Acetaminophen 325 Mg Tablet PO 650 mg Q4HR PRN Administration Pain 1 to 4, or Fever Aspirin 325 mg 04/11/24 09:16 04/11/24 09:28 Aspirin 325 Mg Tablet PO 325 mg DAILYWM PRN Administration HEADACHE Heparin Sodium (Beef Lung) 300 - 500 unit 04/14/24 11:44 04/14/24 12:55 Heparin Flush 500 Units/5 Ml Syringe IVP 500 unit PRN PRN Administration Port Protocol (>24 hours) Lidocaine 1 applic 04/10/24 05:56 04/14/24 17:16 Lidocaine Ointment 5% 35.44 Gm Tube TOP 1 applic QID PRN Administration PAIN 5-7 Loperamide HCl 2 mg 04/09/24 10:54 04/13/24 11:07 Loperamide 2 Mg Capsule PO 2 mg QID PRN Administration Diarrhea Losartan Potassium 50 mg 04/07/24 09:00 04/15/24 08:31 Losartan 50 Mg Tablet PO 50 mg DAILY BARB Administration Mirtazapine 7.5 mg 04/13/24 21:00 04/14/24 20:15 Mirtazapine 15 Mg Tablet PO 7.5 mg QPM BARB Administration Multi-Ingredient Ointment 1 applic 04/07/24 00:03 Zinc Oxide 20% Oint 30 Gm Tube TOP PRN PRN Skin Care Multivitamins 1 tab 04/07/24 09:00 04/15/24 08:31 Multivitamin Tablet PO 1 tab DAILYWM BARB Administration Nystatin 1 applic 04/07/24 09:00 04/15/24 08:32 Nystatin Powder 15 Gm TOP 1 applic DAILY BARB Administration Ondansetron HCl 4 mg 04/06/24 20:44 Ondansetron Odt 4 Mg Tablet TL Q6HR PRN Nausea / Vomiting Oxycodone HCl 5 mg 04/09/24 15:41 04/14/24 20:16 Oxycodone 5 Mg Tablet PO 5 mg Q4H PRN Administration PAIN 7-10 Pantoprazole Sodium 40 mg 04/07/24 08:00 04/15/24 06:00 Pantoprazole 40 Mg Tablet PO 40 mg QDAC BARB Administration Sodium Chloride 10 ml 04/06/24 20:44 Sodium Chloride Flush 0.9% 10 Ml Syringe IVP PRN PRN NEEDED PER PROVIDER ORDERS Sodium Chloride 10 ml 04/07/24 01:00 04/15/24 08:32 Sodium Chloride Flush 0.9% 10 Ml Syringe IVP Not Given 0100,0900,1700 BARB Sodium Phosphate 250 mg 04/12/24 09:00 04/15/24 08:32 Neutra-Phos 250 Mg Tablet PO 250 mg TIDWM BARB Administration Triamcinolone Acetonide 1 applic 04/07/24 21:00 04/14/24 20:15 Triamcinolone 0.1% Oint 15 Gm Tube TOP 1 applic HS BARB Administration Zinc Oxide 113 gm 04/07/24 00:03 Cod Liver Oil/Zinc Oxide 113 Gm Tube TOP PRN PRN Skin Care Objective Vital Signs/Intake & Output Reviewed Vital Signs: Yes Vital Signs: Vital Signs x48h Temp Pulse Resp BP Pulse Ox 04/15/24 08:19 36.5 C 79 14 156/91 H 96 Intake & Output: Intake & Output 04/12/24 04/13/24 04/14/24 04/15/24 23:59 23:59 23:59 23:59 Intake Total 1606 / 1606 440 / 440 920 / 920 120 / 120 Balance 1606 / 1606 440 / 440 920 / 920 120 / 120 Weight (kg) 100 kg Objective General Appearance: positive No acute distress and Alert Eyes Bilateral: positive Normal inspection ENT: positive ENT inspection nml Neck: positive Nml inspection Respiratory: positive Chest non-tender Cardiovascular: positive Regular rate & rhythm and No murmur Abdomen: positive Non-tender Rectal: positive Tenderness (Reported) Skin: positive Color nml Extremities: positive Non-tender Neurologic/Psychiatric: positive Oriented x3 Lab Results 04/15/24 05:58 04/15/24 05:58 Other Labs: Lab Results x24hrs 04/15/24 04/15/24 Range/Units 05:58 05:58 WBC 4.5 L (4.8-10.8) x10^3/uL RBC 3.29 L (4.20-5.40) 10^6/uL Hgb 10.3 L (12.0-16.0) g/dL Hct 30.8 L (37.0-47.0) % MCV 93.6 (81.0-99.0) fL MCH 31.3 H (27.0-31.0) pg MCHC 33.4 (32.0-36.0) g/dL RDW 14.4 (12.0-15.0) % Plt Count 344 (130-450) 10^3/uL MPV 10.6 (7.9-10.8) fL Neut # (Auto) Not Reportable Lymph # (Auto) Not Reportable [place] # (Auto) Not Reportable Eos # (Auto) Not Reportable Baso # (Auto) Not Reportable Absolute Nucleated RBC Not Reportable Total Counted 100 Band Neuts % (Manual) 11 H (0 - 10) % Abnorm Lymph % (Manual) 0 % Metamyelocytes % 4 H ( - 0) % Myelocytes % 1 H ( - 0) % Promyelocytes % 1 H ( - 0) % Nucleated RBC % Not Reportable Neutrophils # (Manual) 2.4 (1.5-6.6) 10^3/uL Lymphocytes # (Manual) 1.0 L (1.5-3.5) 10^3/uL Monocytes # (Manual) 0.8 (0.0-1.0) 10^3/uL Eosinophils # (Manual) 0.0 (0-0.7) 10^3/uL Basophils # (Manual) 0.0 (0-0.1) 10^3/uL Nucleated RBCs 2 % Differential Comment MANUAL DIFFERENTIAL Manual Slide Review Indicated WBC Morphology 1+ TOXIC G (NORMAL) Platelet Estimate NORMAL (130-450,000) (NORMAL) Platelet Morphology NORMAL APPEARANCE (NORMAL) RBC Morph Micro Appear 1+ ANISOCYTOSIS 1+ HYPOCHROMASIA (NORMAL) Sodium 139 (135-145) mmol/L Potassium 3.1 L (3.5-4.5) mmol/L Chloride 104 (101-111) mmol/L Carbon Dioxide 29 (21-32) mmol/L Anion Gap 6.0 (6-13) BUN 10 (6-20) mg/dL Creatinine 0.7 (0.6-1.3) mg/dL Estimated GFR (MDRD) 80 L (>89) Glucose 114 H (74-104) mg/dL Calcium 8.3 L (8.5-10.3) mg/dL Assessment/Plan Problem List (1) Cancer associated pain: Impression: Oxycodone 5 mg every 4 hours Cautious with loperamide use as patient is norovirus positive 04/12/2024: Palliative care following, discussed plan of care with them. Adding mirtazapine. Patient continues to be medically clear for discharge as her febrile neutropenia has resolved and she is finished antibiotics. 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 Huertas on 04/20/2024 Receives radiation 5 times a week at [facility] (3) Fissure, anal: Impression: Pain management as above (4) Anorexia: Impression: Nutrition consult Mirtazapine 7.5 mg Daily (5) Migraine: Impression: Headache resolved after one-time dose of oxycodone last night She declined IV migraine cocktail of Toradol, Reglan, Decadron, Benadryl Imitrex as needed Excedrin as needed 04/11/2024: Patient is asking for Excedrin. We do not have this on formulary, and she does not want to try Fioricet or Midol. I have encouraged her to ask family to bring in her home supply of Excedrin so we can give it to her. Until then, she has as needed Tylenol and aspirin and has been given drinks with caffeine. She states she is normally a coffee drinker, but is afraid that it will exacerbate her diarrhea (6) Anxiety and depression: Impression: Patient is experiencing anxiety and depression over her course of chemoradiation. She wants to do everything she can so that she can finish her course, and is upset that this may be delayed given how weak she is. We are working with her to figure out what the best plan as, and I feel she would not want to be started on any medication for anxiety/depression (7) Fever and neutropenia: Impression: Completed 5-day course of cefepime, vancomycin for febrile neutropenia and probable UTI Daily CBC, CMP (8) Thrombocytopenia: Impression: Plt trending up CBC daily Transfuse platelets if drops below 10 (9) Prediabetes: Impression: A1c 6.1.
[2024-04-15] MEDS: POTASSIUM CHLORIDE 20 MEQ TABLET PO ONE (10:38)
--- NOTE | 2024-04-15 17:28 | Discharge Summary ---
"Discharge Summary Admit Date: 04/06/24 Discharge Date: 04/15/24 Discharging Provider: Linda Mohan MD Primary Care Provider: CATINA Carrillo Code Status: Attempt Resuscitation DIAGNOSES Discharge Diagnoses with Status of Each Condition: 1. Neutropenic fever 2. Chemotherapy-induced diarrhea 3. Norovirus diarrhea 4. Anorexia 5. Anxiety and depression 6. Anal fissures 7. Proctitis 8. Generalized weakness due to illness 9. Hyperglycemia 10. Migraine headache 11. Prerenal azotemia 12. Acute kidney insufficiency 13. Dehydration 14. Hypokalemia HPI History of Present Illness: 83 y old female with PMH Anal cancer on radiation and chemo presented to ER due to weakness, diarrhea for 2 days. As per daughter, pt is on radiation therapy 5 times per week and also chemo which was started 2 weeks ago. Pt had diarrhea on Friday which resolved with imodium. Pt also had fall. As per daughter, pt was little confused. Denies cough, chest pain, SOB, sumptoms C/O decreased appetite On presentaion, pt was febrile, tachycardic, hypotensive Labs showed pancytopenia, WBC 0.6, PLT 18, Na129, Plan Examiner 1.4 In ER, pt was given IVF and IV cefepime and vanco Pt is admitted yoselin to severe sepsis, neutyropenic fever, dehydartion, hypotesnion, ABEBE CONSULTS | PROCEDURES Procedures: 1. Chest x-ray has low lung volumes with mild generalized pulmonary interstitial prominence. Mild pulmonary edema suspected. 2. Head CT is without acute intracranial pathology. 3. 2 sets of blood cultures were negative from April 06 4. Urine culture had less than 10,000 colony-forming units. Polymicrobial growth. Suggestive of skin or other contamination. HOSPITAL COURSE Hospital Course: The patient was placed on empiric antibiotic therapy for possible sepsis with an unknown source. While she did have abnormal urinary constituents there were not enough to say that she had a UTI. Urine culture was negative as were blood cultures. Chest x-ray was not conclusive for pneumonia. As such she received empiric antibiotics for SIRS criteria. Sepsis criteria were not met. She improved tremendously with BUN and creatinine coming to normal. Creatinine going to normal. But the patient remained with the side effects of her chemo and radiation which included rectal pain, anxiety, anorexia. A migraine headache was treated with her medication. She gradually improved her oral intake. We initially felt that she may be candidate for fdc facility but she was norovirus positive in the SNF's were reluctant to take her on the basis of positive norovirus in her stool. She also had become independent enough that she no longer met criteria needed for rehab. Her white cell count was 2.0 on admission. She was 4.5 at discharge. Platelets were 18 on admission. 344 at discharge. She is chronically anemic now between 9 and 10 g of hemoglobin. BUN was 23 on admission and 10 on the day of discharge. Creatinine was 1.4 on admission and was 0.7 at discharge. Stool was PCR positive for norovirus. The patient was anxious about getting home. She felt that she needed more instruction on toileting. Specifically diarrhea and rectal pain. Her oncologist recommended Epsom salts and baking soda sitz bath's. He did not speak directly to us but told the patient and she relate that to us. Physical therapy also worked with her and she ended up going home with a walker. She will also need a toilet riser. Nursing did instruct her on how to use a sitz bath. She is discharged to home with home health. Still uncomfortable from a physical perspective of anal fissures and proctitis. But her generalized weakness is better. Her prerenal azotemia and acute kidney insufficiency have resolved. On the day of discharge she had a low potassium and that was supplemented with 40 mill equivalents of potassium. I did speak to her daughter today and yesterday to update her on mom's progress. Daughter will be picking her up today. ALLERGIES Allergies Allergy/AdvReac Type Severity Reaction Status Date / Time meperidine (From Demerol) Allergy Cramps Verified 04/06/24 16:00 MEDICATIONS Ambulatory Orders Medication Instructions Recorded Confirmed losartan 50 mg tablet 50 mg PO DAILY 10/11/20 04/07/24 magnesium carb,citrate,oxide 300 mg PO DAILY 01/19/24 04/07/24 (Magnesium Complex) multivitamin-ferrous 1 tab PO DAILY 01/19/24 04/07/24 fumarate-folic acid 18 mg-400 mcg tablet (Centrum Women) rosuvastatin 20 mg tablet 20 mg PO DAILY 01/19/24 04/07/24 lidocaine 5 % topical ointment 1 applic topical QID #35.44 grams 01/26/24 04/07/24 ondansetron HCl 8 mg tablet 8 mg PO TID #90 tabs 03/23/24 04/07/24 prochlorperazine maleate 10 mg 10 mg PO TID #90 tabs 03/23/24 04/07/24 tablet (Compazine) oxycodone 5 mg capsule 5 mg PO QDAY PRN pain (scale score 03/24/24 04/07/24 7-10) #35 caps nystatin 100,000 unit/gram topical 1 applic topical QDAY #30 grams 03/31/24 04/07/24 powder triamcinolone acetonide 0.05 % 1 applic topical QDAY #110 grams 03/31/24 04/07/24 topical ointment acetaminophen 500 mg tablet 500 mg PO Q4H PRN pain 04/07/24 04/07/24 [id number]-[id number]-[id number] 250 1 tab PO Q4H PRN headache 04/07/24 04/07/24 mg-250 mg-65 mg tablet (Excedrin Extra Strength) diphenhydramine 25 1 tab PO HS PRN pain 04/07/24 04/07/24 mg-acetaminophen 500 mg tablet (Acetaminophen PM Extra Strength) omeprazole 20 mg capsule,delayed 20 mg PO DAILY 04/07/24 04/07/24 release polyethylene glycol 3350 17 17 g PO DAILY PRN constipation 04/07/24 04/07/24 gram/dose oral powder sumatriptan succinate 50 mg tablet 50 mg PO DAILY PRN migraine 04/07/24 04/07/24 (Imitrex) headache PHYSICAL EXAM AT DISCHARGE General Appearance: positive No acute distress, Alert and Other (5 feet 2 inches tall, 100 kg. Resting comfortably in bed and having lucid send and structure. Oriented to person, place, time and situation) Eyes Bilateral: positive PERRL and EOMI ENT: positive No signs of dehydration Neck: positive No JVD; negative Stiff neck Respiratory: positive Chest non-tender, No respiratory distress and Breath sounds nml; negative Wheezes, Rales or Rhonchi Cardiovascular: positive Regular rate & rhythm, No gallop and Systolic murmur Abdomen: positive Non-tender, No organomegaly, Nml bowel sounds and No distention Rectal: positive Tenderness and Other (Fissure posterior 6 o'clock position) Skin: positive Warm and Dry Extremities: positive Non-tender, Full ROM, Nml appearance and No pedal edema Neurologic/Psychiatric: positive Oriented x3, CN's nml (2-12) and Motor nml LABS 04/15/24 05:58 04/15/24 05:58 TIME SPENT Time Spent in Discharge (Minutes): 35 Discharge Plan Discharge Patient Disposition: 06 Home Health Service Condition: Stable Prescriptions: Continued ondansetron HCl 8 mg tablet 8 mg PO TID Qty: 90 0RF prochlorperazine maleate [Compazine] 10 mg tablet 10 mg PO TID Qty: 90 0RF oxycodone 5 mg capsule 5 mg PO QDAY PRN (Reason: pain (scale score 7-10)) Qty: 35 0RF Rx Instructions: Take 1 daily before bed. Max [address] while taking this medication. Take stool softener while taking this medication. losartan 50 MG tablet 50 mg PO DAILY rosuvastatin 20 MG tablet 20 mg PO DAILY Centrum Women 1 EACH tablet 1 tab PO DAILY Magnesium Complex 300 MG tablet 300 mg PO DAILY lidocaine 36 APPLIC/35.44 GM ointment 1 applic topical QID Qty: 35.44 2RF Rx Instructions: apply to area as needed omeprazole 20 mg capsule,delayed release(DR/EC) 20 mg PO DAILY Patient Comments: take 1 capsule by mouth once daily sumatriptan succinate [Imitrex] 50 mg tablet 50 mg PO DAILY PRN (Reason: migraine headache) acetaminophen 500 mg tablet 500 mg PO Q4H PRN (Reason: pain) diphenhydramine-acetaminophen [Acetaminophen PM Extra Str] 25-500 mg tablet 1 tab PO HS PRN (Reason: pain) Excedrin Extra Strength 250-250-65 mg tablet 1 tab PO Q4H PRN (Reason: headache) polyethylene glycol 3350 238 GM powder 17 g PO DAILY PRN (Reason: constipation) Rx Instructions: use while taking narcotic pain medication. Ok to obtain OTC. triamcinolone acetonide 0.05 % ointment 1 applic topical QDAY Qty: 110 0RF Rx Instructions: Apply to rash at back of hands once nightly prior to bed for no more than 2 weeks at a time, prn rash r/t chemotherapy. nystatin 100,000 unit/gram powder 1 applic topical QDAY Qty: 30 0RF Rx Instructions: Apply once daily under breasts at affected areas, place cloth between skin folds. Activity Restrictions: Activity as Tolerated Diet: Regular Health Concerns: You are undergoing chemotherapy and radiation for HPV positive anal squamous cell cancer. That is left you with rectal pain on top of an already uncomfortable exam because of fissures. You have been having diarrhea that is getting worse. You have been feeling weak, headachy, and had fallen. You went to the [facility] clinic and you received IV fluids. You are still not feeling well so they sent you to the emergency room. While in the emergency room you developed a fever and we found to have a low white cell count associated with your cancer treatment. We call that diagnosis neutropenic fever. As such you were admitted and treated with antibiotics to make sure that you did not get a severe infection because of a low white cell count. We found you to have norovirus in your stool. You have received IV fluids, antibiotics, and your white cell has responded. You are steadily coming up. When you were seen in the emergency room your white cell count was 2000. Your white cell count today is 4500. Physical therapy has been working with you. You are now able to walk at least 100 feet. You are getting up to go to the bathroom by yourself. You have received instruction on how to use a sitz bath for hygiene after toileting. Our physical therapy people feel that you would benefit from a walker and a walker has been prescribed at discharge.You may need a toilet riser at home, and it would be easier to buy that through [employer] or [employer]. Ordering it through Medicare may take a few weeks. Plan of Treatment: 1. Please see your primary care provider or your oncologist in follow-up with regards to continuity of care. I understand you have already been talking to Dr. Huertas and your radiation and chemo will be delayed a bit until you can completely get back up on your feet. 2. I will be ordering home health physical therapy and Occupational Therapy. This will hopefully allow you to keep on getting stronger. 3. I am not changing any of your home medications. They will resume with the usual dosing. The only caution I would give is the use of Tylenol with Benadryl. Benadryl can cause quite a bit of sedation and people above 50 have increased risk of falls because of Benadryl. Print Language: Greenlandic Patient Instructions: Radiation Therapy Skin Care Follow-up Care: CHAD SZYMANSKI PA-C [Primary Care Provider] - Anuel Huertas MD [Provider Admit Priv/Credential] -"
== END 2024-04-15 11:20 | disposition home health service (06) | DRG 809 ==
LOC: ED 15:37 → MS3 20:44
PROVIDERS: ADMIT Internal Medicine; ATTEND Internal Medicine

== ENCOUNTER 2024-05-11 12:42 | Inpatient (IN) ==
--- NOTE | 2024-05-11 14:40 | ED Physician Documentation ---
History of Present Illness Stated complaint Stated Complaint: +BLOOD CULTURES/VOMIT Chief complaint Chief Complaint: General Additonal information Additional information: She has a history of rectal cancer status post radiation and is getting chemotherapy. Developed a fever 2 days ago. She was seen by my partner yesterday and had a positive non-COVID coronavirus infection and was sent home. She was neutropenic. In the interim her blood culture has become positive for Klebsiella. She complains of chronic vaginal pain and urinary burning that she says is from the radiation and cancer. Denies pulmonary complaints or rashes. Meds/Allgy Home Medications Ambulatory Orders Medication Instructions Recorded Confirmed losartan 50 mg tablet 25 mg PO DAILY 10/11/20 05/11/24 rosuvastatin 20 mg tablet 20 mg PO DAILY 01/19/24 05/11/24 lidocaine 5 % topical ointment 1 applic topical QID #35.44 grams 01/26/24 05/11/24 ondansetron HCl 8 mg tablet 8 mg PO TID #90 tabs 03/23/24 05/11/24 prochlorperazine maleate 10 mg 10 mg PO TID #90 tabs 03/23/24 05/11/24 tablet (Compazine) acetaminophen 500 mg tablet 500 mg PO Q4H PRN pain 04/07/24 05/11/24 flpdmxa-qcmdydowwgmpj-hrwsapzm 250 1 tab PO Q4H PRN headache 04/07/24 05/11/24 mg-250 mg-65 mg tablet (Excedrin Extra Strength) diphenhydramine 25 1 tab PO HS PRN pain 04/07/24 05/11/24 mg-acetaminophen 500 mg tablet (Acetaminophen PM Extra Strength) omeprazole 20 mg capsule,delayed 20 mg PO DAILY 04/07/24 05/11/24 release polyethylene glycol 3350 17 17 g PO DAILY PRN constipation 04/07/24 05/11/24 gram/dose oral powder sumatriptan succinate 50 mg tablet 50 mg PO DAILY PRN migraine 04/07/24 05/11/24 (Imitrex) headache mirtazapine 7.5 mg tablet 7.5 mg PO .bedtime #30 tabs 04/23/24 05/11/24 oxycodone 5 mg tablet 5 mg PO Q4H PRN pain #15 tabs 05/10/24 05/11/24 Allergies Allergies Allergy/AdvReac Type Severity Reaction Status Date / Time meperidine (From Demerol) Allergy Cramps Verified 05/11/24 13:01 [facility] Medical History Medical History (Updated 05/11/24 @ 14:40 by Naga Mccoy MD) Anxiety and depression Fissure, anal Rosacea (07/15/22) History of torn meniscus of left knee (07/15/22) Hemorrhoids (07/15/22) Cataract, bilateral (07/15/22) Surgical History Surgical History History of tonsillectomy History of appendectomy H/O: hysterectomy Family History Family History (Updated 02/18/24 @ 13:20 by Basilio Nick CNA) Mother No problems noted. Social History Social History Smoking Status: Never smoker Do you dip or chew tobacco?: No Do you vape?: No Living arrangement: At home Marital Status: Living Condition: Alone Support Person: Yes Relationship: DPOA Living Situation Details: daughter lives nearby; providing support and t ransportation; son is DPOA but in [place] Level: Independent Home Mobility Equipment: Walker Do you feel safe in your home environment?: Yes Suffered physical, verbal, emotional, or financial abuse?: No ETOH Use: Wine Frequency: Daily Number of Amount/day: 2 (2 glasses of wine for dinner, last used 4 days ago) ETOH Use Details: currently not drinking with treatment Substance Use: denies use 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 POLST Status: Limited Interventions Exam Constitutional normal general appearance and no apparent distress Respiratory breath sounds equal bilaterally, normal respiratory effort and clear to auscultation bilaterally Cardiovascular normal heart rate noted, regular rhythm noted and no murmur Gastrointestinal abdomen soft to palpation and nontender to palpation Neurology GCS 15 Results Vitals Vitals: Vital Signs - 24 hr 05/11/24 13:01 05/11/24 15:04 05/11/24 17:00 Temperature 36.9 C Temperature Source Oral Pulse Rate 100 102 H 99 Respiratory Rate 18 16 18 Blood Pressure 150/90 H 90/40 L 90/40 L O2 Saturation 92 98 96 O2 Source Room air Room air Room air Pain Intensity 4 4 3 05/11/24 17:05 05/11/24 18:22 Temperature Temperature Source Pulse Rate 99 Respiratory Rate 22 Blood Pressure 79/45 L O2 Saturation 96 O2 Source Room air Pain Intensity 3 4 Oxygen O2 Source Room air Labs Labs: Laboratory Tests 05/11/24 14:50 WBC 0.1 L* RBC 2.73 L Hgb 8.7 L Hct 25.6 L MCV 93.8 MCH 31.9 H MCHC 34.0 RDW 15.3 H Plt Count 9 L* MPV 11.2 H Neut # (Auto) Not Reportable Lymph # (Auto) Not Reportable [place] # (Auto) Not Reportable Eos # (Auto) Not Reportable Baso # (Auto) Not Reportable Absolute Nucleated RBC Not Reportable Total Counted 10 Band Neuts % (Manual) 0 Reactive Lymphs % (Man) 20 Abnorm Lymph % (Manual) 0 Nucleated RBC % Not Reportable Neutrophils # (Manual) 0.0 L* Lymphocytes # (Manual) 0.1 L Monocytes # (Manual) 0.0 Eosinophils # (Manual) 0.0 Basophils # (Manual) 0.0 Differential Comment MANUAL DIFFERENTIAL Manual Slide Review Indicated WBC Morphology 1+ REACTIVE LYMPHS Platelet Estimate DECREASED (<130,000) Platelet Morphology NORMAL APPEARANCE RBC Morph Micro Appear NORMAL APPEARANCE Sodium 127 L Potassium 4.1 Chloride 102 Carbon Dioxide 23 Anion Gap 2.0 L BUN 35 H Creatinine 1.2 Estimated GFR (MDRD) 43 L Glucose 117 H Lactic Acid 1.2 Calcium 8.3 L Magnesium 1.9 Total Bilirubin 0.8 AST 65 H ALT 50 Alkaline Phosphatase 70 Total Protein 6.0 L Albumin 3.1 L Globulin 2.9 Albumin/Globulin Ratio 1.1 PD Medical Decision Making ED course ED course: This is a shalonda 83-year-old woman who is septic with neutropenia related to chemotherapy. After review of the antibiogram I chose empiric Zosyn (susceptibilities from yesterday's blood cultures are not available yet.) we wi ll obtain a urinalysis as 1 was not done yesterday. We will repeat blood cultures and basic labs. Decision for admission was made when she was in triage and that is when I ordered to the antibiotics, there was a delay to treatment as we are overwhelmed regarding bed capacity in the emergency department we got her back soon as we could. That said despite the sepsis she looks well. There will also be a significant delay to admission as the hospital is beyond capacity right now. At the time of this dictation (2:44 PM on May 11) I believe she is fifth in line boarding in the emergency department for admission. The patient and family are counseled as to the diagnosis and need for admission. This document was made in part using voice recognition software, while efforts are made to proofread this document, sound alike an grammatical errors may occur. A bed was opened up and I spoke with hospitalist nurse practitioner for admission at approximately 5 PM. Discharge Plan Discharge Patient Disposition: [facility] DC/Xfer Condition: Serious Clinical Impression: Bacteremia due to Klebsiella pneumoniae, Sepsis Neutropenic Qualifiers: Neutropenia type: unspecified Qualified Code(s): D70.9 - Neutropenia, unspecified
[2024-05-11] MEDS ORDERED: ACETAMINOPHEN 500 MG TABLET PO PRN (14:44)
[2024-05-11] MEDS ORDERED: ONDANSETRON 4 MG/2 ML VIAL IVP PRN (14:44)
[2024-05-11] MEDS ORDERED: LIDOCAINE-MPF 1% 5 ML VIAL TD PRN (14:46)
[2024-05-11] MEDS: SODIUM CHLORIDE 0.9% 1,000 ML IV STA ×2 (14:55→18:24)
[2024-05-11 15:02] LABS: EOSINOPHILS % (AUTO) 9.1 %; HCT - HEMATOCRIT 25.6 % (37.0-47.0); HGB - HEMOGLOBIN 8.7 g/dL (12.0-16.0); LYMPHOCYTES % (AUTO) 63.6 %; MEAN CORPUSCULAR HEMOGLOBIN 31.9 pg (27.0-31.0); MEAN CORPUSCULAR VOLUME 93.8 fL (81.0-99.0); MEAN PLATELET VOLUME 11.2 fL (7.9-10.8); MONOCYTES % (AUTO) 27.3 %; RED BLOOD COUNT 2.73 10^6/uL (4.20-5.40); RED CELL DISTRIBUTION WIDTH 15.3 % (12.0-15.0)
[2024-05-11 15:05] LABS: PLT - PLATELET COUNT 9 10^3/uL (130-450); WHITE BLOOD COUNT 0.1 x10^3/uL (4.8-10.8)
[2024-05-11 15:06] LABS: SLIDE REVIEW? Indicated
[2024-05-11 15:07] LABS: ABNORMAL LYMPHS % (MANUAL) 0 %; BAND NEUTROPHILS % (MANUAL) 0 %
[2024-05-11 15:18] LABS: MAGNESIUM 1.9 mg/dL (1.7-2.3)
[2024-05-11 15:19] LABS: ALBUMIN 3.1 g/dL (3.2-5.5); ALBUMIN/GLOBULIN RATIO 1.1 (1.0-2.2); BILIRUBIN,TOTAL 0.8 mg/dL (0.2-1.0); CALCIUM 8.3 mg/dL (8.5-10.3); CREATININE 1.2 mg/dL (0.6-1.3); POTASSIUM 4.1 mmol/L (3.5-4.5)
[2024-05-11] MEDS: PIPERACILLIN/TAZOBACTAM 3.375 GM in SODIUM CHLORIDE 0.9% MINIBAG 100 ML IV STA (15:30)
[2024-05-11 15:58] LABS: DIFFERENTIAL COMMENT MANUAL DIFFERENTIAL; LYMPHOCYTES # (MANUAL) 0.1 10^3/uL (1.5-3.5); LYMPHOCYTES % (MANUAL) 70 %; PLATELET ESTIMATE, MANUAL DECREASED (<130,000) (NORMAL); PLATELET MORPHOLOGY NORMAL APPEARANCE (NORMAL); RBC MORPHOLOGY (MULTIPLE) NORMAL APPEARANCE (NORMAL); REACTIVE LYMPHS % (MANUAL) 20 %; WBC MORPHOLOGY (MULTIPLE) 1+ REACTIVE LYMPHS (NORMAL)
--- NOTE | 2024-05-11 16:46 | PHARMACY PROGRESS NOTE ---
Best Possible Medication History Admit Date and Time: Home Medications Medication Instructions Recorded Confirmed Type losartan 50 mg tablet 25 mg PO DAILY 10/11/20 05/11/24 History rosuvastatin 20 mg tablet 20 mg PO DAILY 01/19/24 05/11/24 History lidocaine 5 % topical ointment 1 applic topical QID #35.44 grams 01/26/24 05/11/24 Rx ondansetron HCl 8 mg tablet 8 mg PO TID #90 tabs 03/23/24 05/11/24 Rx prochlorperazine maleate 10 mg 10 mg PO TID #90 tabs 03/23/24 05/11/24 Rx tablet (Compazine) acetaminophen 500 mg tablet 500 mg PO Q4H PRN pain 04/07/24 05/11/24 History dubpxaa-vpuhbewskqsjx-yqqiqqoj 250 1 tab PO Q4H PRN headache 04/07/24 05/11/24 History mg-250 mg-65 mg tablet (Excedrin Extra Strength) diphenhydramine 25 1 tab PO HS PRN pain 04/07/24 05/11/24 History mg-acetaminophen 500 mg tablet (Acetaminophen PM Extra Strength) omeprazole 20 mg capsule,delayed 20 mg PO DAILY 04/07/24 05/11/24 History release polyethylene glycol 3350 17 17 g PO DAILY PRN constipation 04/07/24 05/11/24 History gram/dose oral powder sumatriptan succinate 50 mg tablet 50 mg PO DAILY PRN migraine 04/07/24 05/11/24 History (Imitrex) headache mirtazapine 7.5 mg tablet 7.5 mg PO .bedtime #30 tabs 04/23/24 05/11/24 Rx oxycodone 5 mg tablet 5 mg PO Q4H PRN pain #15 tabs 05/10/24 05/11/24 Rx Processed by: Pharmacy (Medication reconciliation completed by animal technicianAlberto) Medications reviewed in ED?: Yes Medication History completed: Yes Patient Interview: Pt unable to participate Secondary Source(s): Other family member and Insurance records [facility] Statement: As the person ultimately responsible for medication therapy, providers are able to order a medication from an existing home medication list in [facility] via the "Reconcile Routine" prior to Confirmation of that medication by therapeutic support staff. Such practice is discouraged except when the physician, in their clinical judgment, deems that a medical need exists for a medication without regard to previous use.
[2024-05-11] MEDS: HYDROmorphone 1 MG/ML CARPUJECT IVP STA (17:05)
[2024-05-11] MEDS: PIPERACILLIN/TAZOBACTAM 3.375 GM in SODIUM CHLORIDE 0.9% MINIBAG 100 ML IV SCH (17:07)
--- NOTE | 2024-05-11 18:26 | HISTORY & PHYSICAL EXAMINATION ---
Chief Complaint Chief Complaint Chief Complaint: Fevers History of Present Illness Admitted From Admitted From:: Home History Obtained From Records Reviewed: EMR History obtained from: EMR review, interview with patient and son at bedside Exam Limitations: None History of Present Illness HPI Comment/Other: 83-year-old female PMH significant for Type 2 diabetes, hypertension, hyperlipidemia, hypothyroidism, osteopenia, GERD, anal cancer Status post radiation, getting chemotherapy. She developed a fever 2 days ago. She was seen in the ER yesterday, and was found to have a non-COVID coronavirus infection and was sent home. She was noted to be neutropenic at that time. Her blood cultures came back positive for Klebsiella, so she was instructed to return to the ER. She also complains of a chronic vaginal pain and urinary burning from her radiation cancer. Denies chest pain, dyspnea, bowel disturbance, swelling in extremities In the ER, workup was significant for sodium 127, WBC 0.1, PLT 9, ANC 0. She was started on IV Zosyn, and hospitalist was contacted for admission for febrile neutropenia Meds/Allgy Home Medications Ambulatory Orders Medication Instructions Recorded Confirmed losartan 50 mg tablet 25 mg PO DAILY 10/11/20 05/11/24 rosuvastatin 20 mg tablet 20 mg PO DAILY 01/19/24 05/11/24 lidocaine 5 % topical ointment 1 applic topical QID #35.44 grams 01/26/24 05/11/24 ondansetron HCl 8 mg tablet 8 mg PO TID #90 tabs 03/23/24 05/11/24 prochlorperazine maleate 10 mg 10 mg PO TID #90 tabs 03/23/24 05/11/24 tablet (Compazine) acetaminophen 500 mg tablet 500 mg PO Q4H PRN pain 04/07/24 05/11/24 bmcqgla-fyepxffyezlph-wkgdymjm 250 1 tab PO Q4H PRN headache 04/07/24 05/11/24 mg-250 mg-65 mg tablet (Excedrin Extra Strength) diphenhydramine 25 1 tab PO HS PRN pain 04/07/24 05/11/24 mg-acetaminophen 500 mg tablet (Acetaminophen PM Extra Strength) omeprazole 20 mg capsule,delayed 20 mg PO DAILY 04/07/24 05/11/24 release polyethylene glycol 3350 17 17 g PO DAILY PRN constipation 04/07/24 05/11/24 gram/dose oral powder sumatriptan succinate 50 mg tablet 50 mg PO DAILY PRN migraine 04/07/24 05/11/24 (Imitrex) headache mirtazapine 7.5 mg tablet 7.5 mg PO .bedtime #30 tabs 04/23/24 05/11/24 oxycodone 5 mg tablet 5 mg PO Q4H PRN pain #15 tabs 05/10/24 05/11/24 Allergies Allergies Allergy/AdvReac Type Severity Reaction Status Date / Time meperidine (From Demerol) Allergy Cramps Verified 05/11/24 13:01 [facility] Medical History Medical History (Updated 05/11/24 @ 18:47 by Joseph Duran DNP) Anxiety and depression Fissure, anal Rosacea (07/15/22) History of torn meniscus of left knee (07/15/22) Hemorrhoids (07/15/22) Cataract, bilateral (07/15/22) Surgical History Surgical History History of tonsillectomy History of appendectomy H/O: hysterectomy Family History Family History (Updated 02/18/24 @ 13:20 by Basilio Nick CNA) Mother No problems noted. Social History Social History Smoking Status: Never smoker Do you dip or chew tobacco?: No Do you vape?: No Living arrangement: At home Marital Status: Living Condition: Alone Support Person: Yes Relationship: DPOA Living Situation Details: daughter lives nearby; providing support and transportation; son is DPOA but in [place] Level: Independent Home Mobility Equipment: Walker Do you feel safe in your home environment?: Yes Suffered physical, verbal, emotional, or financial abuse?: No ETOH Use: Wine Frequency: Daily Number of Amount/day: 2 (2 glasses of wine for dinner, last used 4 days ago) ETOH Use Details: currently not drinking with treatment Substance Use: denies use 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 POLST Status: Limited Interventions Review of Systems Status of ROS: 10 or more systems reviewed and unremarkable except as noted in history and below Constitutional Reports: Fever, Chills, Malaise and Weakness Cardiovascular Denies: Irregular heart rate, chest pain, palpitations, edema or shortness of breath with exertion Respiratory Denies: Shortness of breath, Cough or Sputum production Gastrointestinal Denies: Abdominal pain, Abdominal distention, Nausea or Vomiting Genitourinary Reports: Painful urination Integumentary/Breast Reports: Rash (Radiation associated excoriation in her vaginal/perineal area) Neurological Reports: General weakness; Denies: Focal weakness Exam Constitutional normal general appearance and no apparent distress Ill-appearing obese female [facility] normocephalic, head/scalp atraumatic and oral mucous membranes abnormal (dry) Eyes PERRL Neck/C-Spine visual inspection normal Lymph no lymphadenopathy noted Chest inspection of chest normal Respiratory breath sounds equal bilaterally and normal respiratory effort Cardiovascular normal heart rate noted Gastrointestinal abdomen normal to inspection and abdomen soft to palpation Genitourinary bladder normal to palpation Extremities normal to inspection 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 Pictures in chart Conclusion/Plan Problem List (1) Neutropenic fever: Plan: WBC 0.1, ANC 0 Trending CBC daily Cefepime, vancomycin as broad-spectrum sepsis coverage Blood cultures positive for Klebsiella Blood pressure 79/45, she meets criteria for septic shock She received IVF per ER provider, will order an additional liter of LR Midodrine 5 mg p.o. 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 Huertas's note 04/29/24 Received a dose of chemotherapy on 04/29/2024 She is seen in the [facility] clinic by Dr. Huertas. She is receiving chemotherapy with 5-fluorouracil + mitomycin. She has an appointment there this . We will consider reaching out in the morning to notify Dr. Huertas that she is admitted and ask for any further recommendations receiving chemoradiation, established in the [facility] clinic here and had a radiation oncologist at [facility] This is left her with a radiation burn, manage as below Consider notifying Dr. Huertas of patient admission (3) Radiation burn: Plan: Zinc cream Low threshold to place Nair catheter Dilaudid 0.5 mg IV every 2 hours as needed for severe pain (4) Thrombocytopenia: Plan: Transfuse 1 unit platelets CBC in a.m. Plan Admit to inpatient for febrile neutropenia/sepsis with shock DNR Her son is her surrogate decision-maker Lab Results Lab results reviewed: Yes 05/11/24 14:50 05/11/24 18:33 Core Measures Anticipated LOS I expect patient to be DC'd or transferred within 96 hours.: Yes DVT/VTE - Prophylaxis VTE/DVT Device ordered at admit?: Yes
[2024-05-11] MEDS: LACTATED RINGERS 1,000 ML IV ONE (18:45)
[2024-05-11] MEDS: MIDODRINE 10 MG TABLET PO SCH (19:06)
[2024-05-11] MEDS ORDERED: ONDANSETRON ODT 4 MG TABLET TL PRN (20:13)
[2024-05-11] MEDS ORDERED: ACETAMINOPHEN 325 MG TABLET PO PRN (20:13)
[2024-05-11] MEDS ORDERED: WATER FOR INJECTION,STERILE 10 ML MC ONE (20:56)
[2024-05-11] MEDS: ZINC OXIDE 20% OINT 30 GM TUBE TOP SCH (21:08)
[2024-05-11] MEDS: VANCOMYCIN INJ 1.5 GM in SODIUM CHLORIDE 0.9% 500 ML IV STA (21:09)
[2024-05-11] MEDS: oxyCODONE 5 MG TABLET PO PRN (21:09)
[2024-05-11] MEDS: MIRTAZAPINE 15 MG TABLET PO SCH (21:09)
[2024-05-11] MEDS: CEFEPIME 2 GM VIAL IVP SCH (21:10)
[2024-05-11] MEDS: SODIUM CHLORIDE 0.9% 1,000 ML IV SCH (21:10)
[2024-05-11 21:51] LABS: BILIRUBIN,URINE SMALL (NEGATIVE); GLUCOSE, URINE (UA) NEGATIVE (NEGATIVE); KETONES,URINE (UA) TRACE mg/dL (NEGATIVE); LEUKOCYTE ESTERASE, URINE TRACE (NEGATIVE); NITRITE,URINE POSITIVE (NEGATIVE); OCCULT BLOOD,URINE LARGE (NEGATIVE); PH,URINE 6.5 PH (5.0-7.5); PROTEIN,URINE >=300 mg/dL (NEGATIVE); UROBILINOGEN,URINE 1 (NORMAL) E.U./dL (NORMAL)
[2024-05-11 21:53] LABS: CLARITY,URINE CLOUDY (CLEAR)
[2024-05-11 22:01] LABS: BACTERIA,URINE Many /HPF (None Seen); RBC,URINE TNTC /HPF (0-5); SQUAMOUS EPITHELIAL CELL,UR FEW Squamous (<= Few)
[2024-05-11 22:02] LABS: AMORPHOUS SEDIMENT,UR Marked /LPF; CASTS, URINE 6-10 Fine Granular /LPF
[2024-05-12] MEDS: HYDROmorphone 0.5 MG/0.5 ML SYRINGE IVP PRN (01:02)
--- NOTE | 2024-05-12 02:44 | PROVIDER PROGRESS NOTE ---
Rabbit Breeder Note Rabbit Breeder Note Rabbit Breeder Note: per rn "Pt has order for platelets (platelets @ 9), but there is nothing in the chart that states a provider has explained to pt about the reasons, risks, chance to ask questions, etc. Per policy, we need that to run the platelets. So we have a cell phone and can you please call and talk w/ pt and chart that you went over the infusion please? The work cell phone we have is [phone]. Thank you!" phone discussion with patient performed as per above discussed need for transfusion along with benefits and risks of same. she has been advised that if any discomfort occurs at any point during transfusion or after, to inform us questions / concerns addressed and pt verbalized comprehension and understanding of recommendations, and is in agreement with plan of care
[2024-05-12] MEDS: SODIUM CHLORIDE FLUSH 0.9% 10 ML SYRINGE IVP SCH (04:13)
[2024-05-12 06:21] LABS: HCT - HEMATOCRIT 22.3 % (37.0-47.0); HGB - HEMOGLOBIN 7.4 g/dL (12.0-16.0); LYMPHOCYTES % (AUTO) 54.5 %; MEAN CORPUSCULAR HEMOGLOBIN 31.6 pg (27.0-31.0); MEAN CORPUSCULAR HGB CONC 33.2 g/dL (32.0-36.0); MEAN CORPUSCULAR VOLUME 95.3 fL (81.0-99.0); MEAN PLATELET VOLUME 11.7 fL (7.9-10.8); MONOCYTES % (AUTO) 36.4 %; NEUTROPHILS % (AUTO) 9.1 %; PLT - PLATELET COUNT 40 10^3/uL (130-450); RED BLOOD COUNT 2.34 10^6/uL (4.20-5.40); RED CELL DISTRIBUTION WIDTH 15.7 % (12.0-15.0)
[2024-05-12 06:38] LABS: CALCIUM 7.7 mg/dL (8.5-10.3); CREATININE 1.1 mg/dL (0.6-1.3); POTASSIUM 3.7 mmol/L (3.5-4.5); WHITE BLOOD COUNT 0.1 x10^3/uL (4.8-10.8)
[2024-05-12 06:39] LABS: ABNORMAL LYMPHS % (MANUAL) 0 %; BAND NEUTROPHILS % (MANUAL) 0 %
[2024-05-12] MEDS: PANTOPRAZOLE 40 MG TABLET PO SCH (06:59)
[2024-05-12 07:01] LABS: DIFFERENTIAL COMMENT MANUAL DIFFERENTIAL; LYMPHOCYTES # (MANUAL) 0.1 10^3/uL (1.5-3.5); LYMPHOCYTES % (MANUAL) 76 %; PLATELET ESTIMATE, MANUAL DECREASED (<130,000) (NORMAL); PLATELET MORPHOLOGY NORMAL APPEARANCE (NORMAL); RBC MORPHOLOGY (MULTIPLE) 1+ HYPOCHROMASIA (NORMAL)
--- NOTE | 2024-05-12 13:12 | PROVIDER PROGRESS NOTE ---
Subjective Prog Note Date Prog Note Date: 05/12/24 Prog Note Time: 11:15 Subjective Pt reports feeling: Worse Subjective: This morning she seems confused. She is insistent that someone here at the hospital is told her she is going home today. She states that her son has her purse with her cell phone and she would like to call her son. She also would like underwear. She is frustrated and seems dissatisfied with her care at this time. Current Medications Current Medications Current Medications: Current Medications Generic Name Dose Route Start Last Admin Trade Name Freq PRN Reason Stop Dose Admin Acetaminophen 1,000 mg 05/11/24 14:44 Acetaminophen 500 Mg Tablet PO Q6H PRN Mild Pain Or Fever>38c(100.4f) Acetaminophen 650 mg 05/11/24 20:13 Acetaminophen 325 Mg Tablet PO Q4HR PRN Pain 1 to 4, or Fever Cefepime HCl 2 gm 05/11/24 21:00 05/11/24 21:10 Cefepime 2 Gm Vial IVP 2 gm Q24H BARB Administration Hydromorphone HCl 0.5 mg 05/11/24 20:13 05/12/24 01:02 Hydromorphone 0.5 Mg/0.5 Ml Syringe IVP 0.5 mg Q2H PRN Administration Pain 8 to 10 Sodium Chloride 1,000 mls @ 100 mls/hr 05/11/24 20:13 05/12/24 10:47 Normal Saline 0.9% IV 100 mls/hr .Q10H BARB Administration Vancomycin HCl 1 gm/ Sodium 250 mls @ 167 mls/hr 05/13/24 21:00 Chloride IV Q48H BARB Lidocaine HCl 10 ml 05/11/24 14:46 Lidocaine-Mpf 1% 5 Ml Vial TD QID PRN vaginal pain Midodrine 10 mg 05/11/24 19:00 05/12/24 08:25 Midodrine 10 Mg Tablet PO 10 mg TIDWM BARB Administration Mirtazapine 7.5 mg 05/11/24 21:00 05/11/24 21:09 Mirtazapine 15 Mg Tablet PO 7.5 mg QPM BARB Administration Multi-Ingredient Ointment 1 applic 05/11/24 21:00 05/12/24 08:25 Zinc Oxide 20% Oint 30 Gm Tube TOP 1 applic BID BARB Administration Multivitamins/Minerals 1 tab 01/08/25 17:00 Multivitamin W/Minerals Tablet PO DAILYWM [facility] Ondansetron HCl 4 mg 05/11/24 20:13 Ondansetron Odt 4 Mg Tablet TL Q6HR PRN Nausea / Vomiting Ondansetron HCl 4 mg 05/11/24 20:13 Ondansetron 4 Mg/2 Ml Vial IVP Q6HR PRN Nausea / Vomiting Oxycodone HCl 5 mg 05/11/24 15:11 05/12/24 00:59 Oxycodone 5 Mg Tablet PO 5 mg Q4H PRN Administration pain > 4 Pantoprazole Sodium 40 mg 05/12/24 07:00 05/12/24 06:59 Pantoprazole 40 Mg Tablet PO 40 mg QDAC [facility] Administration Sodium Chloride 10 ml 05/11/24 20:13 Sodium Chloride Flush 0.9% 10 Ml Syringe IVP PRN PRN NEEDED PER PROVIDER ORDERS Sodium Chloride 10 ml 05/12/24 01:00 05/12/24 08:25 Sodium Chloride Flush 0.9% 10 Ml Syringe IVP 10 ml 0100,0900,1700 [facility] Administration Objective Vital Signs/Intake & Output Reviewed Vital Signs: Yes Vital Signs: Vital Signs x48h Temp Pulse Resp BP Pulse Ox 04/15/24 08:19 36.5 C 79 14 156/91 H 96 Intake & Output: Intake & Output 05/09/24 05/10/24 05/11/24 05/12/24 23:59 23:59 23:59 23:59 Intake Total 2933 / 2933 1210 / 1210 Balance 2933 / 2933 1210 / 1210 Weight (kg) 89 kg Objective General Appearance: positive No acute distress and Alert Eyes Bilateral: positive Normal inspection ENT: positive ENT inspection nml Neck: positive Nml inspection Respiratory: positive Chest non-tender Cardiovascular: positive Regular rate & rhythm and No murmur Abdomen: positive Non-tender Rectal: positive Other (perineum examined with skin breakdown in the folds at the groin creases as well as severe irritation and skin breakdown at the labia bilaterally. ) Skin: positive Color nml Extremities: positive Non-tender Neurologic/Psychiatric: positive Oriented x3 and Other (depressed, argumentative. ) Lab Results 05/12/24 05:30 05/12/24 14:12 Other Labs: Lab Results x24hrs 05/12/24 05/12/24 05/12/24 Range/Units 10:25 05:30 02:30 WBC 0.1 L* (4.8-10.8) x10^3/uL RBC 2.34 L (4.20-5.40) 10^6/uL Hgb 7.4 L (12.0-16.0) g/dL Hct 22.3 L (37.0-47.0) % MCV 95.3 (81.0-99.0) fL MCH 31.6 H (27.0-31.0) pg MCHC 33.2 (32.0-36.0) g/dL RDW 15.7 H (12.0-15.0) % Plt Count 40 L (130-450) 10^3/uL MPV 11.7 H (7.9-10.8) fL Neut # (Auto) Not Reportable Lymph # (Auto) Not Reportable Mckean # (Auto) Not Reportable Eos # (Auto) Not Reportable Baso # (Auto) Not Reportable Absolute Nucleated RBC Not Reportable Total Counted 25 Band Neuts % (Manual) 0 (0 - 10) % Reactive Lymphs % (Man) % Abnorm Lymph % (Manual) 0 % Nucleated RBC % Not Reportable Neutrophils # (Manual) 0.0 L* (1.5-6.6) 10^3/uL Lymphocytes # (Manual) 0.1 L (1.5-3.5) 10^3/uL Monocytes # (Manual) 0.0 (0.0-1.0) 10^3/uL Eosinophils # (Manual) 0.0 (0-0.7) 10^3/uL Basophils # (Manual) 0.0 (0-0.1) 10^3/uL Differential Comment MANUAL DIFFERENTIAL Manual Slide Review WBC Morphology (NORMAL) Platelet Estimate DECREASED (<130,000) (NORMAL) Platelet Morphology NORMAL APPEARANCE (NORMAL) RBC Morph Micro Appear 1+ HYPOCHROMASIA (NORMAL) Sodium 133 L 132 L 132 L (135-145) mmol/L Potassium 3.7 (3.5-4.5) mmol/L Chloride 104 (101-111) mmol/L Carbon Dioxide 22 (21-32) mmol/L Anion Gap 6.0 (6-13) BUN 36 H (6-20) mg/dL Creatinine 1.1 (0.6-1.3) mg/dL Estimated GFR (MDRD) 47 L (>89) Glucose 85 (74-104) mg/dL Lactic Acid (0.5-2.2) mmol/L Calcium 7.7 L (8.5-10.3) mg/dL Magnesium (1.7-2.3) mg/dL Total Bilirubin (0.2-1.0) mg/dL AST (10-42) IU/L ALT (10-60) IU/L Alkaline Phosphatase (42-121) IU/L Total Protein (6.4-8.9) g/dL Albumin (3.2-5.5) g/dL Globulin (2.1-4.2) g/dL Albumin/Globulin Ratio (1.0-2.2) Urine Color Urine Clarity (CLEAR) Urine pH (5.0-7.5) PH Ur Specific Carmen (1.002-1.030) Urine Protein (NEGATIVE) mg/dL Urine Glucose (UA) (NEGATIVE) mg/dL Urine Ketones (NEGATIVE) mg/dL Urine Occult Blood (NEGATIVE) Urine Nitrite (NEGATIVE) Urine Bilirubin (NEGATIVE) Urine Urobilinogen (NORMAL) E.U./dL Ur Leukocyte Esterase (NEGATIVE) Urine RBC (0-5) /HPF Urine WBC (0-5) /HPF Ur Squamous Epith Cells (<= Few) Amorphous Sediment /LPF Urine Bacteria (None Seen) /HPF Urine Casts /LPF Urine Culture Comments Nasal Screen MRSA (PCR) (NEGATIVE) Blood Type Blood Type Recheck Antibody Screen 05/11/24 05/11/24 05/11/24 Range/Units 22:40 22:35 21:00 WBC (4.8-10.8) x10^3/uL RBC (4.20-5.40) 10^6/uL Hgb (12.0-16.0) g/dL Hct (37.0-47.0) % MCV (81.0-99.0) fL MCH (27.0-31.0) pg MCHC (32.0-36.0) g/dL RDW (12.0-15.0) % Plt Count (130-450) 10^3/uL MPV (7.9-10.8) fL Neut # (Auto) Lymph # (Auto) Mckean # (Auto) Eos # (Auto) Baso # (Auto) Absolute Nucleated RBC Total Counted Band Neuts % (Manual) (0 - 10) % Reactive Lymphs % (Man) % Abnorm Lymph % (Manual) % Nucleated RBC % Neutrophils # (Manual) (1.5-6.6) 10^3/uL Lymphocytes # (Manual) (1.5-3.5) 10^3/uL Monocytes # (Manual) (0.0-1.0) 10^3/uL Eosinophils # (Manual) (0-0.7) 10^3/uL Basophils # (Manual) (0-0.1) 10^3/uL Differential Comment Manual Slide Review WBC Morphology (NORMAL) Platelet Estimate (NORMAL) Platelet Morphology (NORMAL) RBC Morph Micro Appear (NORMAL) Sodium 131 L (135-145) mmol/L Potassium (3.5-4.5) mmol/L Chloride (101-111) mmol/L Carbon Dioxide (21-32) mmol/L Anion Gap (6-13) BUN (6-20) mg/dL Creatinine (0.6-1.3) mg/dL Estimated GFR (MDRD) (>89) Glucose (74-104) mg/dL Lactic Acid (0.5-2.2) mmol/L Calcium (8.5-10.3) mg/dL Magnesium (1.7-2.3) mg/dL Total Bilirubin (0.2-1.0) mg/dL AST (10-42) IU/L ALT (10-60) IU/L Alkaline Phosphatase (42-121) IU/L Total Protein (6.4-8.9) g/dL Albumin (3.2-5.5) g/dL Globulin (2.1-4.2) g/dL Albumin/Globulin Ratio (1.0-2.2) Urine Color YELLOW Urine Clarity CLOUDY (CLEAR) Urine pH 6.5 (5.0-7.5) PH Ur Specific Carmen 1.020 (1.002-1.030) Urine Protein >=300 H (NEGATIVE) mg/dL Urine Glucose (UA) NEGATIVE (NEGATIVE) mg/dL Urine Ketones TRACE (NEGATIVE) mg/dL Urine Occult Blood LARGE H (NEGATIVE) Urine Nitrite POSITIVE H (NEGATIVE) Urine Bilirubin SMALL H (NEGATIVE) Urine Urobilinogen 1 (NORMAL) (NORMAL) E.U./dL Ur Leukocyte Esterase TRACE H (NEGATIVE) Urine RBC TNTC H (0-5) /HPF Urine WBC 11-25 H (0-5) /HPF Ur Squamous Epith Cells FEW Squamous (<= Few) Amorphous Sediment Marked /LPF Urine Bacteria Many H (None Seen) /HPF Urine Casts 6-10 Fine Granular /LPF Urine Culture Comments INDICATED Nasal Screen MRSA (PCR) NEGATIVE (NEGATIVE) Blood Type Blood Type Recheck Antibody Screen 05/11/24 05/11/24 05/11/24 Range/Units 20:24 18:33 14:50 WBC 0.1 L* (4.8-10.8) x10^3/uL RBC 2.73 L (4.20-5.40) 10^6/uL Hgb 8.7 L (12.0-16.0) g/dL Hct 25.6 L (37.0-47.0) % MCV 93.8 (81.0-99.0) fL MCH 31.9 H (27.0-31.0) pg MCHC 34.0 (32.0-36.0) g/dL RDW 15.3 H (12.0-15.0) % Plt Count 9 L* (130-450) 10^3/uL MPV 11.2 H (7.9-10.8) fL Neut # (Auto) Not Reportable Lymph # (Auto) Not Reportable Mckean # (Auto) Not Reportable Eos # (Auto) Not Reportable Baso # (Auto) Not Reportable Absolute Nucleated RBC Not Reportable Total Counted 10 Band Neuts % (Manual) 0 (0 - 10) % Reactive Lymphs % (Man) 20 % Abnorm Lymph % (Manual) 0 % Nucleated RBC % Not Reportable Neutrophils # (Manual) 0.0 L* (1.5-6.6) 10^3/uL Lymphocytes # (Manual) 0.1 L (1.5-3.5) 10^3/uL Monocytes # (Manual) 0.0 (0.0-1.0) 10^3/uL Eosinophils # (Manual) 0.0 (0-0.7) 10^3/uL Basophils # (Manual) 0.0 (0-0.1) 10^3/uL Differential Comment MANUAL DIFFERENTIAL Manual Slide Review Indicated WBC Morphology 1+ REACTIVE LYMPHS (NORMAL) Platelet Estimate DECREASED (<130,000) (NORMAL) Platelet Morphology NORMAL APPEARANCE (NORMAL) RBC Morph Micro Appear NORMAL APPEARANCE (NORMAL) Sodium 130 L 127 L (135-145) mmol/L Potassium 4.1 (3.5-4.5) mmol/L Chloride 102 (101-111) mmol/L Carbon Dioxide 23 (21-32) mmol/L Anion Gap 2.0 L (6-13) BUN 35 H (6-20) mg/dL Creatinine 1.2 (0.6-1.3) mg/dL Estimated GFR (MDRD) 43 L (>89) Glucose 117 H (74-104) mg/dL Lactic Acid 1.2 (0.5-2.2) mmol/L Calcium 8.3 L (8.5-10.3) mg/dL Magnesium 1.9 (1.7-2.3) mg/dL Total Bilirubin 0.8 (0.2-1.0) mg/dL AST 65 H (10-42) IU/L ALT 50 (10-60) IU/L Alkaline Phosphatase 70 (42-121) IU/L Total Protein 6.0 L (6.4-8.9) g/dL Albumin 3.1 L (3.2-5.5) g/dL Globulin 2.9 (2.1-4.2) g/dL Albumin/Globulin Ratio 1.1 (1.0-2.2) Urine Color Urine Clarity (CLEAR) Urine pH (5.0-7.5) PH Ur Specific Carmen (1.002-1.030) Urine Protein (NEGATIVE) mg/dL Urine Glucose (UA) (NEGATIVE) mg/dL Urine Ketones (NEGATIVE) mg/dL Urine Occult Blood (NEGATIVE) Urine Nitrite (NEGATIVE) Urine Bilirubin (NEGATIVE) Urine Urobilinogen (NORMAL) E.U./dL Ur Leukocyte Esterase (NEGATIVE) Urine RBC (0-5) /HPF Urine WBC (0-5) /HPF Ur Squamous Epith Cells (<= Few) Amorphous Sediment /LPF Urine Bacteria (None Seen) /HPF Urine Casts /LPF Urine Culture Comments Nasal Screen MRSA (PCR) (NEGATIVE) Blood Type A NEGATIVE Blood Type Recheck A NEGATIVE Antibody Screen NEGATIVE Assessment/Plan Problem List (1) Neutropenic fever: Impression: WBC 0.1, ANC 0 Trending CBC daily Cefepime, vancomycin as broad-spectrum sepsis coverage Blood cultures positive for Klebsiella. I am awaiting sensitivities before changing coverage. Blood pressure 79/45, she meets criteria for septic shock at the time of admit. Blood pressures are improved, but she is getting midodrine TID. She received IVF per ER provider, and, despite national shortage of IVF, I am continuing fluids due to her dehydation, hypotension and poor intake. Midodrine 5 mg p.o. 3 times daily Neutropenic precautions Selected Entries 05/12/24 03:47 05/12/24 04:47 05/12/24 14:00 Blood Pressure [Left Brachial artery] 104/65 114/50 L 101/56 L Blood Pressure [Right Brachial artery] 05/12/24 16:09 Blood Pressure [Left Brachial artery] Blood Pressure [Right Brachial artery] 119/57 L (2) Anal cancer: Impression: cT2N0, anal carcinoma, C1D1 03/23/[address] Huertas's note 04/29/24 Received a dose of chemotherapy on 04/29/2024 She is seen in the MAC clinic by Dr. Huertas. She is receiving chemotherapy with 5-fluorouracil + mitomycin. She has an appointment there this . I have reached out to Dr Huertas, and will followup with him tomorrow. (3) Radiation burn: Impression: this is causing her great discomfort. I have discussed the patient's overall status with her daughter Joan. Unfortunately Tony is unable to do what she needs to do to try to make herself more comfortable. This is leading to more problems. It seems that she is very uncomfortable when she voids therefore tries not to drink tries not to void holds her urine and this is ultimately likely resulted in the current situation. We will continue to work with the patient and provide excellent nursing care in order to make her as comfortable as possible. (4) Thrombocytopenia: Impression: Plt trending up CBC daily Transfuse platelets if drops below 10Laboratory Tests 05/10/24 05/11/24 05/12/24 13:08 14:50 05:30 Plt Count 24 L* 9 L* 40 L (5) Cancer associated pain: Impression: Oxycodone 5 mg every 4 hours Cautious with loperamide use as patient is norovirus positive 04/12/2024: Palliative care following, discussed plan of care with them. Adding mirtazapine. Patient continues to be medically clear for discharge as her febrile neutropenia has resolved and she is finished antibiotics. 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 Huertas on 04/20/2024 Receives radiation 5 times a week at [facility] (7) Fissure, anal: Impression: Pain management as above (8) Anorexia: Impression: Nutrition consult Mirtazapine 7.5 mg Daily (9) Anxiety and depression: Impression: Patient is experiencing anxiety and depression over her course of chemoradiation. We will need to have further discussions regarding possible use of antidepressant through this time. (10) Prediabetes: Impression: A1c 6.1, On 04/10/2024. This is of little significance at this time. I have spent 38 minutes in the care of this patient today. This includes time [id number], review and ordering of diagnostic imaging and laboratory studies.. Monitoring the patient's signs symptoms, evaluation of medication effectiveness and patient's response to treatment.
[2024-05-12] MEDS: NYSTATIN POWDER 15 GM TOP SCH (14:03)
[2024-05-12] MEDS: CEFEPIME 2 GM VIAL IVP SCH (14:53)
[2024-05-12] MEDS: MULTIVITAMIN W/MINERALS TABLET PO SCH (17:09)
[2024-05-12] MEDS: LIDOCAINE OINTMENT 5% 35.44 GM TUBE TOP SCH (21:10)
[2024-05-12] MEDS: VANCOMYCIN INJ 0.75 GM in SODIUM CHLORIDE 0.9% 250 ML IV SCH (21:11)
[2024-05-13 05:37] LABS: HCT - HEMATOCRIT 21.5 % (37.0-47.0); LYMPHOCYTES % (AUTO) 56.5 %; MEAN CORPUSCULAR HEMOGLOBIN 30.9 pg (27.0-31.0); MEAN CORPUSCULAR HGB CONC 32.1 g/dL (32.0-36.0); MEAN CORPUSCULAR VOLUME 96.4 fL (81.0-99.0); MEAN PLATELET VOLUME 12.4 fL (7.9-10.8); MONOCYTES % (AUTO) 21.7 %; NEUTROPHILS % (AUTO) 21.8 %; RED BLOOD COUNT 2.23 10^6/uL (4.20-5.40); RED CELL DISTRIBUTION WIDTH 16.4 % (12.0-15.0)
[2024-05-13 05:43] LABS: WHITE BLOOD COUNT 0.2 x10^3/uL (4.8-10.8)
[2024-05-13 05:44] LABS: HGB - HEMOGLOBIN 6.9 g/dL (12.0-16.0); PLT - PLATELET COUNT 35 10^3/uL (130-450)
[2024-05-13 05:45] LABS: ABNORMAL LYMPHS % (MANUAL) 0 %; BAND NEUTROPHILS % (MANUAL) 0 %
[2024-05-13 05:53] LABS: CALCIUM 7.8 mg/dL (8.5-10.3); CREATININE 1.1 mg/dL (0.6-1.3); POTASSIUM 3.7 mmol/L (3.5-4.5)
[2024-05-13 06:18] LABS: DIFFERENTIAL COMMENT MANUAL DIFFERENTIAL; LYMPHOCYTES # (MANUAL) 0.1 10^3/uL (1.5-3.5); LYMPHOCYTES % (MANUAL) 68 %; NEUTROPHILS # (MANUAL) 0.1 10^3/uL (1.5-6.6); PLATELET ESTIMATE, MANUAL DECREASED (<130,000) (NORMAL); PLATELET MORPHOLOGY NORMAL APPEARANCE (NORMAL); RBC MORPHOLOGY (MULTIPLE) 1+ HYPOCHROMASIA (NORMAL); WBC MORPHOLOGY (MULTIPLE) NORMAL APPEARANCE (NORMAL)
[2024-05-13] MEDS: LIDOCAINE OINTMENT 5% 35.44 GM TUBE TOP PRN (11:13)
[2024-05-13] MEDS: cefTRIAXone 2 GM VIAL IVP SCH (12:37)
--- NOTE | 2024-05-13 12:54 | PROVIDER PROGRESS NOTE ---
Subjective Prog Note Date Prog Note Date: 05/13/24 Prog Note Time: 12:51 Subjective Pt reports feeling: No change Subjective: Remains with severe perineal discomfort. Otherwise is doing OK. The dilaudid helps with pain, but makes it difficult for her to interact. Several meetings today at the bedside with her daughter Joan and her son Isaiah regarding her course of care. Current Medications Current Medications Current Medications: Current Medications Generic Name Dose Route Start Last Admin Trade Name Freq PRN Reason Stop Dose Admin Acetaminophen 1,000 mg 05/11/24 14:44 Acetaminophen 500 Mg Tablet PO Q6H PRN Mild Pain Or Fever>38c(100.4f) Acetaminophen 650 mg 05/11/24 20:13 Acetaminophen 325 Mg Tablet PO Q4HR PRN Pain 1 to 4, or Fever Ceftriaxone Sodium 2 gm 05/13/24 12:00 05/13/24 12:37 Ceftriaxone 2 Gm Vial IVP 2 gm DAILY BARB Administration Hydromorphone HCl 0.5 mg 05/11/24 20:13 05/13/24 07:14 Hydromorphone 0.5 Mg/0.5 Ml Syringe IVP 0.5 mg Q2H PRN Administration Pain 8 to 10 Sodium Chloride 1,000 mls @ 100 mls/hr 05/11/24 20:13 05/13/24 08:43 Normal Saline 0.9% IV 100 mls/hr .Q10H BARB Administration Lidocaine 1 applic 05/12/24 21:39 05/13/24 11:13 Lidocaine Ointment 5% 35.44 Gm Tube TOP 1 applic QID PRN Administration PAIN 5-7 Lidocaine HCl 10 ml 05/11/24 14:46 Lidocaine-Mpf 1% 5 Ml Vial TD QID PRN vaginal pain Midodrine 10 mg 05/11/24 19:00 05/13/24 11:12 Midodrine 10 Mg Tablet PO 10 mg TIDWM BARB Administration Mirtazapine 7.5 mg 05/11/24 21:00 05/12/24 20:57 Mirtazapine 15 Mg Tablet PO 7.5 mg QPM BARB Administration Multi-Ingredient Ointment 1 applic 05/11/24 21:00 05/13/24 11:13 Zinc Oxide 20% Oint 30 Gm Tube TOP 1 applic BID BARB Administration Multivitamins/Minerals 1 tab 05/12/24 17:00 05/13/24 07:11 Multivitamin W/Minerals Tablet PO 1 tab DAILYWM BARB Administration Nystatin 1 applic 05/12/24 14:00 05/13/24 11:14 Nystatin Powder 15 Gm TOP 1 applic BID BARB Administration Ondansetron HCl 4 mg 05/11/24 20:13 Ondansetron Odt 4 Mg Tablet TL Q6HR PRN Nausea / Vomiting Ondansetron HCl 4 mg 05/11/24 20:13 Ondansetron 4 Mg/2 Ml Vial IVP Q6HR PRN Nausea / Vomiting Oxycodone HCl 5 mg 05/11/24 15:11 05/13/24 11:12 Oxycodone 5 Mg Tablet PO 5 mg Q4H PRN Administration pain > 4 Pantoprazole Sodium 40 mg 05/12/24 07:00 05/13/24 07:11 Pantoprazole 40 Mg Tablet PO 40 mg QDAC BARB Administration Sodium Chloride 10 ml 05/11/24 20:13 Sodium Chloride Flush 0.9% 10 Ml Syringe IVP PRN PRN NEEDED PER PROVIDER ORDERS Sodium Chloride 10 ml 05/12/24 01:00 05/13/24 08:31 Sodium Chloride Flush 0.9% 10 Ml Syringe IVP 10 ml 0100,0900,1700 BARB Administration Sterile Water 20 ml 05/13/24 12:00 05/13/24 12:37 Water For Injection,Sterile 10 Ml Vial MC 20 ml DAILY BARB Administration Objective Vital Signs/Intake & Output Reviewed Vital Signs: Yes Vital Signs: Vital Signs x48h Temp Pulse Resp BP Pulse Ox O2 Flow Rate 05/13/24 10:51 36.5 C 91 22 103/57 L 92 0 05/13/24 05:29 36.3 C L 93 18 100/51 L 92 Intake & Output: Intake & Output 05/10/24 05/11/24 05/12/24 05/13/24 23:59 23:59 23:59 23:59 Intake Total 2933 / 2933 2885 / 2885 1275 / 1275 Balance 2933 / 2933 2885 / 2885 1275 / 1275 Weight (kg) 89 kg Objective General Appearance: positive No acute distress and Alert Eyes Bilateral: positive Normal inspection ENT: positive ENT inspection nml Neck: positive Nml inspection Respiratory: positive No respiratory distress and Breath sounds nml Cardiovascular: positive Regular rate & rhythm Abdomen: positive Non-tender and No distention Rectal: positive Other (On the right buttock there is a bleeding denuded area coming out from the rectal area. There is severe irritation of the perianal area and the labia. There is swelling of the labia. There is skin breakdown in the area under the pannus and at the creases of the groin.) Back: positive Nml inspection Extremities: positive Non-tender and No pedal edema Neurologic/Psychiatric: positive Oriented x3 Lab Results 05/13/24 05:34 05/13/24 05:34 Other Labs: Lab Results x24hrs 05/13/24 05/12/24 Range/Units 05:34 14:12 WBC 0.2 L* (4.8-10.8) x10^3/uL RBC 2.23 L (4.20-5.40) 10^6/uL Hgb 6.9 L* (12.0-16.0) g/dL Hct 21.5 L (37.0-47.0) % MCV 96.4 (81.0-99.0) fL MCH 30.9 (27.0-31.0) pg MCHC 32.1 (32.0-36.0) g/dL RDW 16.4 H (12.0-15.0) % Plt Count 35 L* (130-450) 10^3/uL MPV 12.4 H (7.9-10.8) fL Neut # (Auto) Not Reportable Lymph # (Auto) Not Reportable [place] # (Auto) Not Reportable Eos # (Auto) Not Reportable Baso # (Auto) Not Reportable Absolute Nucleated RBC Not Reportable Total Counted 25 Band Neuts % (Manual) 0 (0 - 10) % Abnorm Lymph % (Manual) 0 % Nucleated RBC % Not Reportable Neutrophils # (Manual) 0.1 L* (1.5-6.6) 10^3/uL Lymphocytes # (Manual) 0.1 L (1.5-3.5) 10^3/uL Monocytes # (Manual) 0.0 (0.0-1.0) 10^3/uL Eosinophils # (Manual) 0.0 (0-0.7) 10^3/uL Basophils # (Manual) 0.0 (0-0.1) 10^3/uL Differential Comment MANUAL DIFFERENTIAL WBC Morphology NORMAL APPEARANCE (NORMAL) Platelet Estimate DECREASED (<130,000) (NORMAL) Platelet Morphology NORMAL APPEARANCE (NORMAL) RBC Morph Micro Appear 1+ HYPOCHROMASIA (NORMAL) Sodium 135 132 L (135-145) mmol/L Potassium 3.7 (3.5-4.5) mmol/L Chloride 109 (101-111) mmol/L Carbon Dioxide 20 L (21-32) mmol/L Anion Gap 6.0 (6-13) BUN 34 H (6-20) mg/dL Creatinine 1.1 (0.6-1.3) mg/dL Estimated GFR (MDRD) 47 L (>89) Glucose 112 H (74-104) mg/dL Calcium 7.8 L (8.5-10.3) mg/dL Assessment/Plan Problem List (1) Neutropenic fever: Impression: WBC 0.2, ANC 0.1 Trending CBC daily Cefepime, vancomycin as broad-spectrum sepsis coverage, I de-escalated vancomycin on 05/13. Blood cultures positive for Klebsiella. It is sensitive to ceftriaxone as well as cefepime. I am de-escalating to ceftriaxone so that she can get daily coverage. She is on bacteremia dosing at 2 g a day. Blood pressure 79/45, she meets criteria for septic shock at the time of admit. Blood pressures are improved, but she is getting midodrine TID. She received IVF per ER provider, and, despite national shortage of IVF, I am continuing fluids due to her dehydation, hypotension and poor intake. This evening I am changing her IV fluids to D5 half NS and will give this overnight. I will check labs for refeeding syndrome in the morning. Midodrine 5 mg p.o. 3 times daily Neutropenic precautions Selected Entries 05/13/24 05:29 05/13/24 10:51 05/13/24 16:24 Blood Pressure [Right Brachial artery] 100/51 L 103/57 L 115/57 L (2) Anal cancer: Impression: cT2N0, anal carcinoma, C1D1 03/23/[address] Huertas's note 04/29/24 Received a dose of chemotherapy on 04/29/2024 She is seen in the [facility] clinic by Dr. Huertas. She is receiving chemotherapy with 5-fluorouracil + mitomycin. She has 11 out of 30 radiation treatments remaining. I spoke with her radiation oncology practice at [facility]. We discussed her severe perennial discomfort. The recommendation was for Silvadene Epsom salt sitz baths, and Aquaphor., She has completed 2 out of [address] Huertas. He is due to follow-up with her at the bedside this afternoon. I spoke with Dr. Huertas this afternoon. He recommended a blood transfusion her hemoglobin is 6.9. We will transfuse 1 unit this evening. I discussed her poor intake with Dr. Huertas. Her poor intake is related to her severe discomfort with elimination. She is therefore not eating and not drinking. Dr. Huertas raised the question of TPN to help boost her reserves at this time. I discussed this with pharmacy and will consider this further in the morning. (3) Radiation burn: Impression: this is causing her great discomfort. I have discussed the patient's overall status with her daughter Joan. Unfortunately Tony is unable to do what she needs to do to try to make herself more comfortable. This is leading to more problems. It seems that she is very uncomfortable when she voids therefore tries not to drink tries not to void holds her urine and this is ultimately likely resulted in the current situation. We will continue to work with the patient and provide excellent nursing care in order to make her as comfortable as possible. We had further discussions at bedside today, and I have had discussions with RT today. the recommendation is for the patient to press on with her radiation treatment as much as possible. At 19 out of 30 fractions, it is really important for her to continue with radiation in order to reduce the risk of recurrence. At this point if she stops her radiation treatment there will be regrowth of the tumor cells. I have discussed this with the patient her daughter and her son. Tony is very overwhelmed and in great deal of physical discomfort at this time. Her daughter and her son want her to continue to press on and complete her radiation treatment. We discussed the possibility of consulting urology for suprapubic catheter this will remove the problem of urine burning her peroneum she still will continue to have to defecate. At this point she is not a candidate for this given her current blood counts. I will contact urology tomorrow and the hope would be that by early in the week she could potentially have this procedure done if it was decided that it would be beneficial. (4) Thrombocytopenia: Impression: Platelet counts are stable. CBC daily Transfuse platelets if drops below 10 Laboratory Tests 05/11/24 05/12/24 05/13/24 14:50 05:30 05:34 Plt Count 9 L* 40 L 35 L* (5) Cancer associated pain: Impression: Oxycodone 5 mg every 4 hours We are using Dilaudid IV for PeriCare at this point as her radiation chaidez are so severe. 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 She is ongoing with radiation treatment This is the cause of her fevers, pancytopenia (7) Fissure, anal: Impression: Pain management as above (8) Anorexia: Impression: Nutrition consult Mirtazapine 7.5 mg Daily (9) Anxiety and depression: Impression: Patient is experiencing anxiety and depression over her course of chemoradiation. We will need to have further discussions regarding possible use of antidepressant through this time. (10) Prediabetes: Impression: A1c 6.1, On 04/10/2024. This is of little significance at this time. . (11) Anemia: Impression: Hemoglobin 6.9 today. Recheck CBC in AM. 1 unit of packed red blood cells this afternoon. I have spent 65 minutes in the care of this patient today. This includes time [id number], review and ordering of diagnostic imaging and laboratory studies.. Monitoring the patient's signs symptoms, evaluation of medication effectiveness and patient's response to treatment.I have consulted with radiation oncology today. I am awaiting a discussion with oncology
[2024-05-13] MEDS: SILVER SULFADIAZINE CREAM 25 GM TUBE TOP SCH (16:27)
[2024-05-13] MEDS ORDERED: VANCOMYCIN INJ 1 GM in SODIUM CHLORIDE 0.9% 250 ML IV SCH (21:00)
[2024-05-13] MEDS: ACETAMINOPHEN 325 MG TABLET PO ONE (21:54)
[2024-05-13] MEDS: diphenhydrAMINE INJ 50 MG/ML VIAL IVP ONE (22:00)
[2024-05-14] MEDS: DEXTROSE 5%-0.45% NACL 1,000 ML IV SCH (02:30)
[2024-05-14 05:54] LABS: EOSINOPHILS % (AUTO) 2.8 %; HCT - HEMATOCRIT 25.4 % (37.0-47.0); HGB - HEMOGLOBIN 8.6 g/dL (12.0-16.0); MEAN CORPUSCULAR HEMOGLOBIN 32.2 pg (27.0-31.0); MEAN CORPUSCULAR HGB CONC 33.9 g/dL (32.0-36.0); MEAN CORPUSCULAR VOLUME 95.1 fL (81.0-99.0); MEAN PLATELET VOLUME 11.9 fL (7.9-10.8); MONOCYTES % (AUTO) 19.4 %; NEUTROPHILS % (AUTO) 22.2 %; RED BLOOD COUNT 2.67 10^6/uL (4.20-5.40); RED CELL DISTRIBUTION WIDTH 16.2 % (12.0-15.0)
[2024-05-14 06:01] LABS: PLT - PLATELET COUNT 30 10^3/uL (130-450); WHITE BLOOD COUNT 0.4 x10^3/uL (4.8-10.8)
[2024-05-14 06:03] LABS: ABNORMAL LYMPHS % (MANUAL) 0 %; BAND NEUTROPHILS % (MANUAL) 0 %
[2024-05-14 06:10] LABS: CALCIUM 8.1 mg/dL (8.5-10.3); MAGNESIUM 1.9 mg/dL (1.7-2.3); PHOSPHORUS 1.8 mg/dL (2.5-5.0); POTASSIUM 3.4 mmol/L (3.5-4.5)
[2024-05-14 06:32] LABS: DIFFERENTIAL COMMENT MANUAL DIFFERENTIAL; LYMPHOCYTES # (MANUAL) 0.2 10^3/uL (1.5-3.5); LYMPHOCYTES % (MANUAL) 60 %; NEUTROPHILS # (MANUAL) 0.1 10^3/uL (1.5-6.6); PLATELET ESTIMATE, MANUAL DECREASED (<130,000) (NORMAL); RBC MORPHOLOGY (MULTIPLE) NORMAL APPEARANCE (NORMAL); WBC MORPHOLOGY (MULTIPLE) NORMAL APPEARANCE (NORMAL)
--- NOTE | 2024-05-14 16:12 | PROVIDER PROGRESS NOTE ---
Subjective Prog Note Date Prog Note Date: 05/14/24 Prog Note Time: 16:07 Subjective Subjective: Seen initially this morning during perineal care. Is incredibly painful even with IV narcotics. Long discussion at the bedside this afternoon with the son. Ultimately given the medical facts and the practical facts we have decided that a Nair catheter is the best option. She will need some anxiolysis before we can place this. Otherwise she is doing well. She felt a little better during the night after blood transfusion. Current Medications Current Medications Current Medications: Current Medications Generic Name Dose Route Start Last Admin Trade Name Freq PRN Reason Stop Dose Admin Ceftriaxone Sodium 2 gm 05/13/24 12:00 05/14/24 08:45 Ceftriaxone 2 Gm Vial IVP 2 gm DAILY BARB Administration Hydromorphone HCl 0.5 mg 05/11/24 20:13 05/14/24 15:14 Hydromorphone 0.5 Mg/0.5 Ml Syringe IVP 0.5 mg Q2H PRN Administration Pain 8 to 10 Dextrose/Sodium Chloride 1,000 mls @ 125 mls/hr 05/13/24 19:00 05/14/24 10:40 D5.45ns IV 05/14/24 18:59 125 mls/hr .Q8H BARB Administration Multivitamins 10 ml/ Zinc/ 2,011 mls @ 83 mls/hr 05/14/24 19:00 Copper/Manganese/Selenium 1 ml IV / Amino Ac/Electrol/Dextrose/ 1900 BARB Calcium Protocol Fat Emulsion Intravenous 250 mls @ 21 mls/hr 05/14/24 19:00 Intralipid 20% IV 1900 BARB Lidocaine 1 applic 05/12/24 21:39 05/14/24 08:44 Lidocaine Ointment 5% 35.44 Gm Tube TOP 1 applic QID PRN Administration PAIN 5-7 Lidocaine HCl 10 ml 05/11/24 14:46 Lidocaine-Mpf 1% 5 Ml Vial TD QID PRN vaginal pain Midodrine 10 mg 05/11/24 19:00 05/14/24 13:01 Midodrine 10 Mg Tablet PO 10 mg TIDWM BARB Administration Mirtazapine 7.5 mg 05/11/24 21:00 05/13/24 21:58 Mirtazapine 15 Mg Tablet PO 7.5 mg QPM BARB Administration Multi-Ingredient Ointment 1 applic 05/11/24 21:00 05/14/24 08:46 Zinc Oxide 20% Oint 30 Gm Tube TOP 1 applic BID BARB Administration Nystatin 1 applic 05/14/24 10:43 Nystatin Powder 15 Gm TOP PRN PRN NEEDED PER PROVIDER ORDERS Ondansetron HCl 4 mg 05/11/24 20:13 Ondansetron Odt 4 Mg Tablet TL Q6HR PRN Nausea / Vomiting Ondansetron HCl 4 mg 05/11/24 20:13 Ondansetron 4 Mg/2 Ml Vial IVP Q6HR PRN Nausea / Vomiting Oxycodone HCl 5 mg 05/11/24 15:11 05/14/24 15:13 Oxycodone 5 Mg Tablet PO 5 mg Q4H PRN Administration pain > 4 Pantoprazole Sodium 40 mg 05/12/24 07:00 05/14/24 07:32 Pantoprazole 40 Mg Tablet PO Not Given QDAC BARB Silver Sulfadiazine 1 applic 05/14/24 10:44 Silver Sulfadiazine Cream 25 Gm Tube TOP PRN PRN NEEDED PER PROVIDER ORDERS Sodium Chloride 10 ml 05/11/24 20:13 Sodium Chloride Flush 0.9% 10 Ml Syringe IVP PRN PRN NEEDED PER PROVIDER ORDERS Sodium Chloride 10 ml 05/12/24 01:00 05/14/24 08:44 Sodium Chloride Flush 0.9% 10 Ml Syringe IVP 10 ml 0100,0900,1700 BARB Administration Sterile Water 20 ml 05/13/24 12:00 05/14/24 08:44 Water For Injection,Sterile 10 Ml Vial MC 20 ml DAILY BARB Administration Objective Vital Signs/Intake & Output Reviewed Vital Signs: Yes Vital Signs: Vital Signs x48h Temp Pulse Resp BP Pulse Ox O2 Flow Rate 05/14/24 14:00 36.5 C 85 19 129/64 96 0 Intake & Output: Intake & Output 05/11/24 05/12/24 05/13/24 05/14/24 23:59 23:59 23:59 23:59 Intake Total 2933 / 2933 2885 / 2885 2615 / 2615 1610 / 1610 Balance 2933 / 2933 2885 / 2885 2615 / 2615 1610 / 1610 Weight (kg) 89 kg Objective General Appearance: positive No acute distress and Alert Eyes Bilateral: positive Normal inspection ENT: positive ENT inspection nml Neck: positive Nml inspection Respiratory: positive No respiratory distress and Breath sounds nml Cardiovascular: positive Regular rate & rhythm Abdomen: positive Non-tender and No distention Rectal: positive Other (On the right buttock there is a bleeding denuded area coming out from the rectal area. There is severe irritation of the perianal area and the labia. There is swelling of the labia. There is skin breakdown in the area under the pannus and at the creases of the groin.) Back: positive Nml inspection Extremities: positive Non-tender and No pedal edema Neurologic/Psychiatric: positive Oriented x3 Lab Results 05/14/24 05:00 05/14/24 05:00 Other Labs: Lab Results x24hrs 05/14/24 05/11/24 Range/Units 05:00 20:24 WBC 0.4 L* (4.8-10.8) x10^3/uL RBC 2.67 L (4.20-5.40) 10^6/uL Hgb 8.6 L (12.0-16.0) g/dL Hct 25.4 L (37.0-47.0) % MCV 95.1 (81.0-99.0) fL MCH 32.2 H (27.0-31.0) pg MCHC 33.9 (32.0-36.0) g/dL RDW 16.2 H (12.0-15.0) % Plt Count 30 L* (130-450) 10^3/uL MPV 11.9 H (7.9-10.8) fL Neut # (Auto) Not Reportable Lymph # (Auto) Not Reportable [place] # (Auto) Not Reportable Eos # (Auto) Not Reportable Baso # (Auto) Not Reportable Absolute Nucleated RBC Not Reportable Total Counted 25 Band Neuts % (Manual) 0 (0 - 10) % Abnorm Lymph % (Manual) 0 % Nucleated RBC % Not Reportable Neutrophils # (Manual) 0.1 L* (1.5-6.6) 10^3/uL Lymphocytes # (Manual) 0.2 L (1.5-3.5) 10^3/uL Monocytes # (Manual) 0.0 (0.0-1.0) 10^3/uL Eosinophils # (Manual) 0.0 (0-0.7) 10^3/uL Basophils # (Manual) 0.0 (0-0.1) 10^3/uL Differential Comment MANUAL DIFFERENTIAL WBC Morphology NORMAL APPEARANCE (NORMAL) Platelet Estimate DECREASED (<130,000) (NORMAL) RBC Morph Micro Appear NORMAL APPEARANCE (NORMAL) Sodium 134 L (135-145) mmol/L Potassium 3.4 L (3.5-4.5) mmol/L Chloride 109 (101-111) mmol/L Carbon Dioxide 20 L (21-32) mmol/L Anion Gap 5.0 L (6-13) BUN 32 H (6-20) mg/dL Creatinine 1.0 (0.6-1.3) mg/dL Estimated GFR (MDRD) 53 L (>89) Glucose 150 H (74-104) mg/dL Calcium 8.1 L (8.5-10.3) mg/dL Phosphorus 1.8 L (2.5-5.0) mg/dL Magnesium 1.9 (1.7-2.3) mg/dL Blood Type A NEGATIVE Antibody Screen NEGATIVE Crossmatch IS Only See Detail Assessment/Plan Problem List (1) Neutropenic fever: Impression: WBC .4 ANC 0.1 Trending CBC daily Cefepime, vancomycin as broad-spectrum sepsis coverage, I de-escalated vancomycin on 05/13. Blood cultures positive for Klebsiella. It is sensitive to ceftriaxone as well as cefepime. I am de-escalating to ceftriaxone so that she can get daily coverage. She is on bacteremia dosing at 2 g a day. repeat blood cultures are negative. Blood pressure 79/45, she meets criteria for septic shock at the time of admit. Blood pressures are improved, but she is getting midodrine TID. She received IVF per ER provider, and, despite national shortage of IVF, I am continuing fluids due to her dehydation, hypotension and poor intake. Overnight I gave her D5 half NS. I am starting TPN this evening. She has some hypophosphatemia this should correct with the TPN. Will give TPN for 2 to 3 days over the weekend and try to increase her nutritional status to try to increase her ability to heal and build blood cells. Midodrine 5 mg p.o. 3 times daily Neutropenic precautions Selected Entries 05/13/24 05:29 05/13/24 10:51 05/13/24 16:24 Blood Pressure [Right Brachial artery] 100/51 L 103/57 L 115/57 L (2) Anal cancer: Impression: cT2N0, anal carcinoma, C1D1 03/23/[address] Huertas's note 04/29/24 Received a dose of chemotherapy on 04/29/2024 She is seen in [place] [facility] [place]. Huertas. She is receiving chemotherapy with 5-fluorouracil + mitomycin. She has 11 out of 30 radiation treatments remaining. I spoke with her radiation oncology practice at [facility]. We discussed her severe perennial discomfort. The recommendation was for Silvadene Epsom salt sitz baths, and Aquaphor., She has completed 2 out of [address] Huertas. He is due to follow-up with her at the bedside this afternoon. I spoke with Dr. Huertas 05/13. He recommended a blood transfusion her hemoglobin is 6.9. She has been transfused one unit and her Hgb responded appropriately. I discussed her poor intake with Dr. Huertas. Her poor/ intake is related to her severe discomfort with elimination. She is therefore not eating and not drinking. Dr. Huertas raised the question of TPN to help boost her reserves at this time. I discussed this with pharmacy and we will institute this. (3) Radiation burn: Impression: this is causing her great discomfort. I have discussed the patient's overall status with her daughter Joan. Unfortunately Tony is unable to do what she needs to do to try to make herself more comfortable. This is leading to more problems. It seems that she is very uncomfortable when she voids therefore tries not to drink tries not to void holds her urine and this is ultimately likely resulted in the current situation. We will continue to work with the patient and provide excellent nursing care in order to make her as comfortable as possible. We had further discussions at bedside today, and I have had discussions with RT. the recommendation is for the patient to press on with her radiation treatment as much as possible. At 19 out of 30 fractions, it is really important for her to continue with radiation in order to reduce the risk of recurrence. At this point if she stops her radiation treatment there will be regrowth of the tumor cells. I have discussed this with the patient her daughter and her son. Tony is very overwhelmed and in great deal of physical discomfort at this time. Her daughter and her son want her to continue to press on and complete her radiation treatment. We discussed the possibility of consulting urology for suprapubic catheter this will remove the problem of urine burning her perineum she still will continue to have to defecate. At this point she is not a candidate for this given her current blood counts. I have spoken with Dr. Lawrence of urology. He recommends against a suprapubic catheter. The patient's body habitus would not support this and the catheter would kinked off. We this afternoon used ketamine for sedation at anxiolytic dosing. She received 50 mg. She also got 0.5 of Dilaudid and 1 mg of Ativan. We were able to provide excellent peroneal care during this time which was very good for the patient. We attempted insertion of a Nair catheter. Unfortunately I believe the urethra to be stenosed very close to the urethral opening. Myself and 2 nurses failed to insert a Nair catheter. Unfortunately I think this leaves us with minimal options. I do not have urology coverage at this facility again and until May 23. At this point I believe she would need cystoscopy in order to place the catheter. (4) Thrombocytopenia: Impression: Platelet counts are stable. CBC daily Transfuse platelets if drops below 10 Laboratory Tests 05/11/24 05/12/24 05/13/24 14:50 05:30 05:34 Plt Count 9 L* 40 L 35 L* (5) Cancer associated pain: Impression: Oxycodone 5 mg every 4 hours We are using Dilaudid IV for PeriCare at this point as her radiation chaidez are so severe. 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 She is ongoing with radiation treatment This is the cause of her fevers, pancytopenia (7) Fissure, anal: Impression: Pain management as above (8) Anorexia: Impression: Nutrition consult Mirtazapine 7.5 mg Daily (9) Anxiety and depression: Impression: Patient is experiencing anxiety and depression over her course of chemoradiation. We will need to have further discussions regarding possible use of antidepressant through this time. There is a definite side effect of ketamine administration that last for some time regarding relief of depression symptoms. This was another reason that I chose to use this today for anxiolysis at the time of this very painful procedure. (10) Prediabetes: Impression: A1c 6.1, On 04/10/2024. This is of little significance at this time. . (11) Anemia: Impression: Hemoglobin 6.9 today. Recheck CBC in AM. 1 unit of packed red blood cells this afternoon. I have spent 80 minutes in the care of this patient today. This includes time [id number], review and ordering of diagnostic imaging and laboratory studies.. Monitoring the patient's signs symptoms, evaluation of medication effectiveness and patient's response to treatment.Today I had discussions with urology regarding best plan of care for urinary drainage I also had discussions with anesthesia and consideration of true procedural sedation for catheter placement and perennial care. Ultimately we decided on ketamine for anxiolysis which was quite effective.
[2024-05-14] MEDS: LORazepam 2 MG/ML VIAL IVP ONE (17:59)
[2024-05-14] MEDS: KETAMINE 500 MG/10 ML VIAL IVP ONE (18:00)
[2024-05-14] MEDS: SODIUM CHLORIDE FLUSH 0.9% 10 ML SYRINGE IVP PRN (18:30)
[2024-05-14] MEDS: SILVER SULFADIAZINE CREAM 25 GM TUBE TOP PRN (18:32)
[2024-05-14] MEDS: FAT EMULSION 20% 250 ML IV SCH (21:07)
[2024-05-14] MEDS: TPN (CLINIMIX E 5/15) 2,000 ML with MULTIVITAMIN 10 ML, TRACE ELEMENTS 1 ML IV SCH (21:07)
[2024-05-15 07:22] LABS: HCT - HEMATOCRIT 25.8 % (37.0-47.0); HGB - HEMOGLOBIN 8.7 g/dL (12.0-16.0); LYMPHOCYTES % (AUTO) 50.9 %; MEAN CORPUSCULAR HEMOGLOBIN 32.1 pg (27.0-31.0); MEAN CORPUSCULAR HGB CONC 33.7 g/dL (32.0-36.0); MEAN CORPUSCULAR VOLUME 95.2 fL (81.0-99.0); MEAN PLATELET VOLUME 12.6 fL (7.9-10.8); MONOCYTES % (AUTO) 18.2 %; NEUTROPHILS % (AUTO) 30.9 %; RED BLOOD COUNT 2.71 10^6/uL (4.20-5.40); RED CELL DISTRIBUTION WIDTH 16.8 % (12.0-15.0)
[2024-05-15 07:47] LABS: ALBUMIN 2.5 g/dL (3.2-5.5); ALBUMIN/GLOBULIN RATIO 0.8 (1.0-2.2); ALKALINE PHOSPHATASE 128 IU/L (42-121); ALT ALANINE AMINOTRANSFERASE 108 IU/L (10-60); AST ASPARTATE AMINOTRANSFERASE 66 IU/L (10-42); BILIRUBIN,TOTAL 0.3 mg/dL (0.2-1.0); BUN - BLOOD UREA NITROGEN 27 mg/dL (6-20); CALCIUM 8.2 mg/dL (8.5-10.3); CARBON DIOXIDE - CO2 22 mmol/L (21-32); CHLORIDE 108 mmol/L (101-111); CREATININE 0.9 mg/dL (0.6-1.3); GFR - MDRD 60 (>89); GLUCOSE 146 mg/dL (74-104); MAGNESIUM 1.9 mg/dL (1.7-2.3); PHOSPHORUS 1.9 mg/dL (2.5-5.0); POTASSIUM 3.8 mmol/L (3.5-4.5); SODIUM 134 mmol/L (135-145); TOTAL PROTEIN 5.6 g/dL (6.4-8.9)
[2024-05-15 07:48] LABS: PREALBUMIN < 3 mg/dL (17-34)
[2024-05-15 07:51] LABS: INR 1.3 (0.8-1.2); PT - PROTHROMBIN TIME 14.1 secs (9.9-12.6)
[2024-05-15 07:58] LABS: PLT - PLATELET COUNT 35 10^3/uL (130-450)
[2024-05-15 08:00] LABS: SLIDE REVIEW? Indicated; WHITE BLOOD COUNT 0.6 x10^3/uL (4.8-10.8)
[2024-05-15 08:01] LABS: ABNORMAL LYMPHS % (MANUAL) 0 %; BAND NEUTROPHILS % (MANUAL) 0 %
[2024-05-15 08:11] LABS: LYMPHOCYTES # (MANUAL) 0.3 10^3/uL (1.5-3.5); LYMPHOCYTES % (MANUAL) 54 %; MONOCYTES # (MANUAL) 0.1 10^3/uL (0.0-1.0)
[2024-05-15 08:14] LABS: DIFFERENTIAL COMMENT MANUAL DIFFERENTIAL; NEUTROPHILS # (MANUAL) 0.2 10^3/uL (1.5-6.6)
[2024-05-15 08:15] LABS: PLATELET ESTIMATE, MANUAL DECREASED (<130,000) (NORMAL)
[2024-05-15 08:17] LABS: PLATELET MORPHOLOGY NORMAL APPEARANCE (NORMAL); RBC MORPHOLOGY (MULTIPLE) NORMAL APPEARANCE (NORMAL); WBC MORPHOLOGY (MULTIPLE) NORMAL APP (NORMAL)
[2024-05-15] MEDS: NYSTATIN POWDER 15 GM TOP PRN (10:00)
--- NOTE | 2024-05-15 13:42 | PROVIDER PROGRESS NOTE ---
Subjective Prog Note Date Prog Note Date: 05/15/24 Prog Note Time: 12:00 Subjective Subjective: She is trying to piece together what happened yesterday afternoon and evening. She had some ketamine to help with trying to insert a catheter. started with purewick overnight which has been helpful. Current Medications Current Medications Current Medications: Current Medications Generic Name Dose Route Start Last Admin Trade Name Freq PRN Reason Stop Dose Admin Ceftriaxone Sodium 2 gm 05/13/24 12:00 05/15/24 08:55 Ceftriaxone 2 Gm Vial IVP 2 gm DAILY BARB Administration Hydromorphone HCl 0.5 mg 05/11/24 20:13 05/15/24 08:55 Hydromorphone 0.5 Mg/0.5 Ml Syringe IVP 0.5 mg Q2H PRN Administration Pain 8 to 10 Multivitamins 10 ml/ Zinc/ 2,011 mls @ 83 mls/hr 05/14/24 19:00 05/15/24 03:44 Copper/Manganese/Selenium 1 ml IV 83 mls/hr / Amino Ac/Electrol/Dextrose/ 1900 BARB Infusion Calcium Protocol Fat Emulsion Intravenous 250 mls @ 21 mls/hr 05/14/24 19:00 05/15/24 12:05 Intralipid 20% IV Infused 1900 BABR Infusion Lidocaine 1 applic 05/12/24 21:39 05/15/24 09:06 Lidocaine Ointment 5% 35.44 Gm Tube TOP 1 applic QID PRN Administration PAIN 5-7 Lidocaine HCl 10 ml 05/11/24 14:46 Lidocaine-Mpf 1% 5 Ml Vial TD QID PRN vaginal pain Midodrine 10 mg 05/11/24 19:00 05/15/24 12:05 Midodrine 10 Mg Tablet PO 10 mg TIDWM BARB Administration Mirtazapine 7.5 mg 05/11/24 21:00 05/14/24 21:10 Mirtazapine 15 Mg Tablet PO Not Given QPM [facility] Multi-Ingredient Ointment 1 applic 05/11/24 21:00 05/15/24 05:49 Zinc Oxide 20% Oint 30 Gm Tube TOP 1 applic BID BARB Administration Nystatin 1 applic 05/14/24 10:43 Nystatin Powder 15 Gm TOP PRN PRN NEEDED PER PROVIDER ORDERS Ondansetron HCl 4 mg 05/11/24 20:13 Ondansetron Odt 4 Mg Tablet TL Q6HR PRN Nausea / Vomiting Ondansetron HCl 4 mg 05/11/24 20:13 Ondansetron 4 Mg/2 Ml Vial IVP Q6HR PRN Nausea / Vomiting Oxycodone HCl 5 mg 05/11/24 15:11 05/15/24 08:55 Oxycodone 5 Mg Tablet PO 5 mg Q4H PRN Administration pain > 4 Pantoprazole Sodium 40 mg 05/12/24 07:00 05/15/24 06:18 Pantoprazole 40 Mg Tablet PO 40 mg QDAC BARB Administration Silver Sulfadiazine 1 applic 05/14/24 10:44 05/15/24 05:49 Silver Sulfadiazine Cream 25 Gm Tube TOP 1 applic PRN PRN Administration NEEDED PER PROVIDER ORDERS Sodium Chloride 10 ml 05/11/24 20:13 05/14/24 18:30 Sodium Chloride Flush 0.9% 10 Ml Syringe IVP 10 ml PRN PRN Administration NEEDED PER PROVIDER ORDERS Sodium Chloride 10 ml 05/12/24 01:00 05/15/24 08:56 Sodium Chloride Flush 0.9% 10 Ml Syringe IVP 10 ml 0100,0900,1700 BARB Administration Sterile Water 20 ml 05/13/24 12:00 05/15/24 08:56 Water For Injection,Sterile 10 Ml Vial MC 20 ml DAILY BARB Administration Objective Vital Signs/Intake & Output Reviewed Vital Signs: Yes Vital Signs: Vital Signs x48h Temp Pulse Resp BP Pulse Ox 05/15/24 08:38 36.2 C L 92 16 124/63 97 Intake & Output: Intake & Output 05/12/24 05/13/24 05/14/24 05/15/24 23:59 23:59 23:59 23:59 Intake Total 2885 / 2885 2615 / 2615 2810 / 2810 851 / 851 Output Total 900 / 900 Balance 2885 / 2885 2615 / 2615 2810 / 2810 -49 / -49 Weight (kg) 90 kg Objective General Appearance: positive No acute distress and Alert Eyes Bilateral: positive Normal inspection ENT: positive ENT inspection nml Neck: positive Nml inspection Respiratory: positive No respiratory distress and Breath sounds nml Cardiovascular: positive Regular rate & rhythm Abdomen: positive Non-tender and No distention Rectal: positive Other (On the right buttock there is a bleeding denuded area coming out from the rectal area. There is severe irritation of the perianal area and the labia. There is swelling of the labia. There is skin breakdown in the area under the pannus and at the creases of the groin.) Back: positive Nml inspection Extremities: positive Non-tender and No pedal edema Neurologic/Psychiatric: positive Oriented x3 Comments/Other: I did not examine her perineum. Lab Results 05/15/24 07:03 05/15/24 07:03 Other Labs: Lab Results x24hrs 05/15/24 Range/Units 07:03 WBC 0.6 L* (4.8-10.8) x10^3/uL RBC 2.71 L (4.20-5.40) 10^6/uL Hgb 8.7 L (12.0-16.0) g/dL Hct 25.8 L (37.0-47.0) % MCV 95.2 (81.0-99.0) fL MCH 32.1 H (27.0-31.0) pg MCHC 33.7 (32.0-36.0) g/dL RDW 16.8 H (12.0-15.0) % Plt Count 35 L* (130-450) 10^3/uL MPV 12.6 H (7.9-10.8) fL Neut # (Auto) Not Reportable Lymph # (Auto) Not Reportable [place] # (Auto) Not Reportable Eos # (Auto) Not Reportable Baso # (Auto) Not Reportable Absolute Nucleated RBC Not Reportable Total Counted 50 Band Neuts % (Manual) 0 (0 - 10) % Abnorm Lymph % (Manual) 0 % Nucleated RBC % Not Reportable Neutrophils # (Manual) 0.2 L* (1.5-6.6) 10^3/uL Lymphocytes # (Manual) 0.3 L (1.5-3.5) 10^3/uL Monocytes # (Manual) 0.1 (0.0-1.0) 10^3/uL Eosinophils # (Manual) 0.0 (0-0.7) 10^3/uL Basophils # (Manual) 0.0 (0-0.1) 10^3/uL Differential Comment MANUAL DIFFERENTIAL Manual Slide Review Indicated WBC Morphology NORMAL LANDON (NORMAL) Platelet Estimate DECREASED (<130,000) (NORMAL) Platelet Morphology NORMAL APPEARANCE (NORMAL) RBC Morph Micro Appear NORMAL APPEARANCE (NORMAL) PT 14.1 H (9.9-12.6) secs INR 1.3 H (0.8-1.2) Sodium 134 L (135-145) mmol/L Potassium 3.8 (3.5-4.5) mmol/L Chloride 108 (101-111) mmol/L Carbon Dioxide 22 (21-32) mmol/L Anion Gap 4.0 L (6-13) BUN 27 H (6-20) mg/dL Creatinine 0.9 (0.6-1.3) mg/dL Estimated GFR (MDRD) 60 L (>89) Glucose 146 H (74-104) mg/dL Calcium 8.2 L (8.5-10.3) mg/dL Phosphorus 1.9 L (2.5-5.0) mg/dL Magnesium 1.9 (1.7-2.3) mg/dL Total Bilirubin 0.3 (0.2-1.0) mg/dL AST 66 H (10-42) IU/L ALT 108 H (10-60) IU/L Alkaline Phosphatase 128 H (42-121) IU/L Total Protein 5.6 L (6.4-8.9) g/dL Albumin 2.5 L (3.2-5.5) g/dL Globulin 3.1 (2.1-4.2) g/dL Albumin/Globulin Ratio 0.8 L (1.0-2.2) Prealbumin < 3 L (17-34) mg/dL Assessment/Plan Problem List (1) Neutropenic fever: Impression: WBC .6 ANC 0.2 Trending CBC daily Cefepime, vancomycin as broad-spectrum sepsis coverage, I de-escalated vancomycin on 05/13. Blood cultures positive for Klebsiella. It is sensitive to ceftriaxone as well as cefepime. I am de-escalating to ceftriaxone so that she can get daily coverage. She is on bacteremia dosing at 2 g a day. repeat blood cultures are negative. Blood pressure 79/45, she meets criteria for septic shock at the time of admit. Blood pressures are improved, but she is getting midodrine TID. She received IVF per ER provider, and, despite national shortage of IVF, I am continuing fluids due to her dehydation, hypotension and poor intake. Overnight I gave her D5 half NS. I am starting TPN this evening. She has some hypophosphatemia this should correct with the TPN. Will give TPN for 2 to 3 days over the weekend and try to increase her nutritional status to try to increase her ability to heal and build blood cells. Midodrine 5 mg p.o. 3 times daily Neutropenic precautions Selected Entries 05/13/24 05:29 05/13/24 10:51 05/13/24 16:24 Blood Pressure [Right Brachial artery] 100/51 L 103/57 L 115/57 L (2) Anal cancer: Impression: cT2N0, anal carcinoma, C1D1 03/23/[address] Huertas's note 04/29/24 Received a dose of chemotherapy on 04/29/2024 She is seen in the [facility] clinic by Dr. Huertas. She is receiving chemotherapy with 5-fluorouracil + mitomycin. She has 11 out of 30 radiation treatments remaining. I spoke with her radiation oncology practice at [facility]. We discussed her severe perennial discomfort. The recommendation was for Silvadene Epsom salt sitz baths, and Aquaphor., She has completed 2 out of [address] Huertas. He is due to follow-up with her at the bedside this afternoon. I spoke with Dr. Huertas 05/13. He recommended a blood transfusion when her hemoglobin was 6.9. She has been transfused one unit and her Hgb responded appropriately. I discussed her poor intake with Dr. Huertas. Her poor/ intake is related to her severe discomfort with elimination. She is therefore not eating and not drinking. Dr. Huertas raised the question of TPN to help boost her reserves at this time. I discussed this with pharmacy and we will institute this. She is day one of TPN. this going fine. port is functioning. (3) Radiation burn: Impression: this is causing her great discomfort. I have discussed the patient's overall status with her daughter Joan. Unfortunately Tony is unable to do what she needs to do to try to make herself more comfortable. This is leading to more problems. It seems that she is very uncomfortable when she voids therefore tries not to drink tries not to void holds her urine and this is ultimately likely resulted in the current situation. We will continue to work with the patient and provide excellent nursing care in order to make her as comfortable as possible. We had further discussions at bedside today, and I have had discussions with RT. the recommendation is for the patient to press on with her radiation treatment as much as possible. At 19 out of 30 fractions, it is really important for her to continue with radiation in order to reduce the risk of recurrence. At this point if she stops her radiation treatment there will be regrowth of the tumor cells. I have discussed this with the patient her daughter and her son. Tony is very overwhelmed and in great deal of physical discomfort at this time. Her daughter and her son want her to continue to press on and complete her radiation treatment. We discussed the possibility of consulting urology for suprapubic catheter this will remove the problem of urine burning her perineum she still will continue to have to defecate. At this point she is not a candidate for this given her current blood counts. I have spoken with Dr. Lawrence of urology. He recommends against a suprapubic catheter. The patient's body habitus would not support this and the catheter would kinked off. We were unable to get damon placed. I have been working with family and patient to encourage her to complete her course of radiation. She seems more comfortable today. We will try to clean with pericare bottle which I have obtained from the [facility]. This might be very helpful at home over a toilet or bedside commode. Got OOB to the chair this afternoon. (4) Thrombocytopenia: Impression: Platelet counts are stable. CBC daily Transfuse platelets if drops below 10 Laboratory Tests 05/13/24 05/14/24 05/15/24 05:34 05:00 07:03 Plt Count 35 L* 30 L* 35 L* (5) Cancer associated pain: Impression: Oxycodone 5 mg every 4 hours We are using Dilaudid IV for PeriCare at this point as her radiation chaidez are so severe. We will continue to use topical oxycodone, topical lidocaine, topical Silvadene, She did not get dilaudid from about 9am until 2pm today, but other petit has had 6 doses in the last 24 hours. 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 She is ongoing with radiation treatment This is the cause of her fevers, pancytopenia (7) Fissure, anal: Impression: Pain management as above (8) Anorexia: Impression: Nutrition consult Mirtazapine 7.5 mg Daily (9) Anxiety and depression: Impression: Patient is experiencing anxiety and depression over her course of chemoradiation. We will need to have further discussions regarding possible use of antidepressant through this time. There is a definite side effect of ketamine administration that last for some time regarding relief of depression symptoms. This was another reason that I chose to use this today for anxiolysis at the time of this very painful procedure. (10) Prediabetes: Impression: A1c 6.1, On 04/10/2024. This is of little significance at this time. . (11) Anemia: Impression: Hemoglobin 8.7 today. Recheck CBC in AM. . I have spent 45 minutes in the care of this patient today. This includes time [id number], review and ordering of diagnostic imaging and laboratory studies.. Monitoring the patient's signs symptoms, evaluation of medication effectiveness and patient's response to treatment.
[2024-05-15] MEDS ORDERED: CALCIUM CARBONATE CHEW 500 MG TABLET PO PRN (16:08)
[2024-05-16 06:09] LABS: BASOPHILS % (AUTO) 0.9 %; HCT - HEMATOCRIT 26.1 % (37.0-47.0); HGB - HEMOGLOBIN 8.8 g/dL (12.0-16.0); LYMPHOCYTES % (AUTO) 41.1 %; MEAN CORPUSCULAR HGB CONC 33.7 g/dL (32.0-36.0); MEAN CORPUSCULAR VOLUME 94.9 fL (81.0-99.0); MEAN PLATELET VOLUME 12.3 fL (7.9-10.8); NEUTROPHILS % (AUTO) 28.1 %; PLT - PLATELET COUNT 49 10^3/uL (130-450); RED BLOOD COUNT 2.75 10^6/uL (4.20-5.40); RED CELL DISTRIBUTION WIDTH 16.8 % (12.0-15.0)
[2024-05-16 06:17] LABS: WHITE BLOOD COUNT 1.1 x10^3/uL (4.8-10.8)
[2024-05-16 06:18] LABS: ABNORMAL LYMPHS % (MANUAL) 0 %; BAND NEUTROPHILS % (MANUAL) 0 %
[2024-05-16 06:23] LABS: CALCIUM 8.2 mg/dL (8.5-10.3); CREATININE 0.8 mg/dL (0.6-1.3); POTASSIUM 3.8 mmol/L (3.5-4.5)
[2024-05-16 06:37] LABS: LYMPHOCYTES # (MANUAL) 0.6 10^3/uL (1.5-3.5); LYMPHOCYTES % (MANUAL) 54 %; MONOCYTES # (MANUAL) 0.2 10^3/uL (0.0-1.0); MYELOCYTES % (MANUAL) 2 %
[2024-05-16 06:38] LABS: DIFFERENTIAL COMMENT MANUAL DIFFERENTIAL; PLATELET ESTIMATE, MANUAL DECREASED (<130,000) (NORMAL); PLATELET MORPHOLOGY NORMAL APPEARANCE (NORMAL); RBC MORPHOLOGY (MULTIPLE) NORMAL APP (NORMAL); WBC MORPHOLOGY (MULTIPLE) NORMAL APPEARANCE (NORMAL)
[2024-05-16 06:41] LABS: NEUTROPHILS # (MANUAL) 0.3 10^3/uL (1.5-6.6)
--- NOTE | 2024-05-16 17:31 | PROVIDER PROGRESS NOTE ---
Subjective Prog Note Date Prog Note Date: 05/16/24 Prog Note Time: 17:30 Subjective Subjective: She has been resting all day. No family at the bedside. She is not wanting to have a conversation with me today. I asked her how her pain was she says it is a 3 she is just got some Dilaudid. I asked her if she wants to continue radiation therapy as soon as she gets out of the hospital and she is unable or unwilling to answer that question. She does want to make that decision prior to leaving the hospital and she does want her children involved in that decision. Current Medications Current Medications Current Medications: Current Medications Generic Name Dose Route Start Last Admin Trade Name Freq PRN Reason Stop Dose Admin Calcium Carbonate/Glycine 500 mg 05/15/24 16:08 Calcium Carbonate Chew 500 Mg Tablet PO QID PRN Heartburn Ceftriaxone Sodium 2 gm 05/13/24 12:00 05/16/24 08:16 Ceftriaxone 2 Gm Vial IVP 2 gm DAILY BARB Administration Hydromorphone HCl 0.5 mg 05/11/24 20:13 05/16/24 15:54 Hydromorphone 0.5 Mg/0.5 Ml Syringe IVP 0.5 mg Q2H PRN Administration Pain 8 to 10 Multivitamins 10 ml/ Zinc/ 2,011 mls @ 83 mls/hr 05/14/24 19:00 05/15/24 22:35 Copper/Manganese/Selenium 1 ml IV 83 mls/hr / Amino Ac/Electrol/Dextrose/ 1900 BARB Infusion Calcium Protocol Fat Emulsion Intravenous 250 mls @ 21 mls/hr 05/14/24 19:00 05/16/24 07:01 Intralipid 20% IV Infused 1900 BARB Infusion Lidocaine 1 applic 05/12/24 21:39 05/16/24 05:54 Lidocaine Ointment 5% 35.44 Gm Tube TOP 1 applic QID PRN Administration PAIN 5-7 Lidocaine HCl 10 ml 05/11/24 14:46 Lidocaine-Mpf 1% 5 Ml Vial TD QID PRN vaginal pain Midodrine 10 mg 05/11/24 19:00 05/16/24 16:07 Midodrine 10 Mg Tablet PO 10 mg TIDWM BARB Administration Mirtazapine 7.5 mg 05/11/24 21:00 05/15/24 20:45 Mirtazapine 15 Mg Tablet PO 7.5 mg QPM BARB Administration Multi-Ingredient Ointment 1 applic 05/11/24 21:00 05/16/24 08:18 Zinc Oxide 20% Oint 30 Gm Tube TOP 1 applic BID BARB Administration Nystatin 1 applic 05/14/24 10:43 05/15/24 10:00 Nystatin Powder 15 Gm TOP 1 applic PRN PRN Administration NEEDED PER PROVIDER ORDERS Ondansetron HCl 4 mg 05/11/24 20:13 Ondansetron Odt 4 Mg Tablet TL Q6HR PRN Nausea / Vomiting Ondansetron HCl 4 mg 05/11/24 20:13 Ondansetron 4 Mg/2 Ml Vial IVP Q6HR PRN Nausea / Vomiting Oxycodone HCl 5 mg 05/11/24 15:11 05/15/24 14:05 Oxycodone 5 Mg Tablet PO 5 mg Q4H PRN Administration pain > 4 Pantoprazole Sodium 40 mg 05/12/24 07:00 05/16/24 06:11 Pantoprazole 40 Mg Tablet PO 40 mg QDAC BARB Administration Silver Sulfadiazine 1 applic 05/14/24 10:44 05/16/24 05:54 Silver Sulfadiazine Cream 25 Gm Tube TOP 1 applic PRN PRN Administration NEEDED PER PROVIDER ORDERS Sodium Chloride 10 ml 05/11/24 20:13 05/14/24 18:30 Sodium Chloride Flush 0.9% 10 Ml Syringe IVP 10 ml PRN PRN Administration NEEDED PER PROVIDER ORDERS Sodium Chloride 10 ml 05/12/24 01:00 05/16/24 15:55 Sodium Chloride Flush 0.9% 10 Ml Syringe IVP 10 ml 0100,0900,1700 BARB Administration Sterile Water 20 ml 05/13/24 12:00 05/16/24 08:18 Water For Injection,Sterile 10 Ml Vial MC 20 ml DAILY BARB Administration Objective Vital Signs/Intake & Output Reviewed Vital Signs: Yes Vital Signs: Vital Signs x48h Temp Pulse Resp BP BP Pulse Ox 05/16/24 16:08 36.4 C L 99 16 126/76 93 05/16/24 14:48 36.4 C L 92 20 98/64 93 Intake & Output: Intake & Output 05/13/24 05/14/24 05/15/24 05/16/24 23:59 23:59 23:59 23:59 Intake Total 2615 / 2615 2810 / 2810 2912 / 2912 274 / 274 Output Total 1200 / 1200 600 / 600 Balance 2615 / 2615 2810 / 2810 1712 / 1712 -326 / -326 Weight (kg) 90 kg 96 kg Objective General Appearance: positive No acute distress and Alert Eyes Bilateral: positive Normal inspection ENT: positive ENT inspection nml Neck: positive Nml inspection Respiratory: positive No respiratory distress and Breath sounds nml Cardiovascular: positive Regular rate & rhythm Abdomen: positive Non-tender and No distention Rectal: positive Other (remains [facility] skin breakdown at the groins creases) Back: positive Nml inspection Extremities: positive Non-tender and No pedal edema Neurologic/Psychiatric: positive Oriented x3 Comments/Other: I did not examine her perineum. Lab Results 05/16/24 05:56 05/16/24 05:56 Other Labs: Lab Results x24hrs 05/16/24 Range/Units 05:56 WBC 1.1 L* (4.8-10.8) x10^3/uL RBC 2.75 L (4.20-5.40) 10^6/uL Hgb 8.8 L (12.0-16.0) g/dL Hct 26.1 L (37.0-47.0) % MCV 94.9 (81.0-99.0) fL MCH 32.0 H (27.0-31.0) pg MCHC 33.7 (32.0-36.0) g/dL RDW 16.8 H (12.0-15.0) % Plt Count 49 L (130-450) 10^3/uL MPV 12.3 H (7.9-10.8) fL Neut # (Auto) Not Reportable Lymph # (Auto) Not Reportable Ray # (Auto) Not Reportable Eos # (Auto) Not Reportable Baso # (Auto) Not Reportable Absolute Nucleated RBC Not Reportable Total Counted 100 Band Neuts % (Manual) 0 (0 - 10) % Abnorm Lymph % (Manual) 0 % Myelocytes % 2 H ( - 0) % Nucleated RBC % Not Reportable Neutrophils # (Manual) 0.3 L* (1.5-6.6) 10^3/uL Lymphocytes # (Manual) 0.6 L (1.5-3.5) 10^3/uL Monocytes # (Manual) 0.2 (0.0-1.0) 10^3/uL Eosinophils # (Manual) 0.0 (0-0.7) 10^3/uL Basophils # (Manual) 0.0 (0-0.1) 10^3/uL Differential Comment MANUAL DIFFERENTIAL WBC Morphology NORMAL APPEARANCE (NORMAL) Platelet Estimate DECREASED (<130,000) (NORMAL) Platelet Morphology NORMAL APPEARANCE (NORMAL) RBC Morph Micro Appear NORMAL LANDON (NORMAL) Sodium 134 L (135-145) mmol/L Potassium 3.8 (3.5-4.5) mmol/L Chloride 107 (101-111) mmol/L Carbon Dioxide 22 (21-32) mmol/L Anion Gap 5.0 L (6-13) BUN 31 H (6-20) mg/dL Creatinine 0.8 (0.6-1.3) mg/dL Estimated GFR (MDRD) 69 L (>89) Glucose 165 H (74-104) mg/dL Calcium 8.2 L (8.5-10.3) mg/dL Assessment/Plan Problem List (1) Neutropenic fever: Impression: WBC 1.1 ANC 0.3 Trending CBC daily Cefepime, vancomycin as broad-spectrum sepsis coverage, I de-escalated vancomycin on 05/13. Blood cultures positive for Klebsiella. It is sensitive to ceftriaxone as well as cefepime. I am de-escalating to ceftriaxone so that she can get daily coverage. She is on bacteremia dosing at 2 g a day. repeat blood cultures are negative. Blood pressure 79/45, she meets criteria for septic shock at the time of admit. Blood pressures are improved, but she is getting midodrine TID. She received IVF per ER provider, and, despite national shortage of IVF, I am continuing fluids due to her dehydation, hypotension and poor intake. She is on TPN. Her oral intake is poor. We decided to continue TPN over the weekend to give her some boost in her nutrition. She has had a bowel movement last 24 hours. Midodrine 5 mg p.o. 3 times daily Neutropenic precautions Selected Entries 05/16/24 01:41 05/16/24 14:48 05/16/24 16:08 Blood Pressure [Right Brachial artery] 138/75 H 98/64 Blood Pressure [Right Radial artery] 126/76 (2) Anal cancer: Impression: cT2N0, anal carcinoma, C1D1 03/23/[address] Huertas's note 04/29/24 Received a dose of chemotherapy on 04/29/2024 She is seen in the [facility] clinic by Dr. Huertas. She is receiving chemotherapy with 5-fluorouracil + mitomycin. She has 11 out of 30 radiation treatments remaining. I spoke with her radiation oncology practice at [facility]. We discussed her severe perennial discomfort. The recommendation was for Silvadene Epsom salt sitz baths, and Aquaphor., She has completed 2 out of [address] Huertas. I spoke with Dr. Huertas 05/13. He recommended a blood transfusion when her hemoglobin was 6.9. She has been transfused one unit and her Hgb responded appropriately. I discussed her poor intake with Dr. Huertas. Her poor intake is related to her severe discomfort with elimination. She is therefore not eating and not drinking. Dr. Huertas raised the question of TPN to help boost her reserves at this time. I discussed this with pharmacy and we will institute this. She is day two of TPN. this going fine. port is functioning. (3) Radiation burn: Impression: this is causing her great discomfort. I have discussed the patient's overall status with her daughter Joan. Unfortunately Tony is unable to do what she needs to do to try to make herself more comfortable. This is leading to more problems. It seems that she is very uncomfortable when she voids therefore tries not to drink tries not to void holds her urine and this is ultimately likely resulted in the current situation. We will continue to work with the patient and provide excellent nursing care in order to make her as comfortable as possible. I have had discussions with RT. the recommendation is for the patient to press on with her radiation treatment as much as possible. At 19 out of 30 fractions, it is really important for her to continue with radiation in order to reduce the risk of recurrence. At this point if she stops her radiation treatment there will be regrowth of the tumor cells. I have discussed this with the patient her daughter and her son. Tony is very overwhelmed and in great deal of physical discomfort at this time. Her daughter and her son want her to continue to press on and complete her radiation treatment. We discussed the possibility of consulting urology for suprapubic catheter this will remove the problem of urine burning her perineum she still will continue to have to defecate. At this point she is not a candidate for this given her current blood counts. I have spoken with Dr. Lawrence of urology. He recommends against a suprapubic catheter. The patient's body habitus would not support this and the catheter would kinked off. We were unable to get damon placed. Purewick is working well. This may be an option for home, if the family wants to invest in it. I have been working with family and patient to encourage her to complete her course of radiation. She seems more comfortable today. We will try to clean with pericare bottle which I have obtained from the [facility] [place]. This might be very helpful at home over a toilet or bedside commode. Getting to the edge of the bed today. She expresses the desire to have discussion about finishing RT, and she wants to do this with her children before leaving the hospital. I think that we need better information on risks of not finishing radiation, and I intend to call her Rad Onc practice to get this information and will also involve Palliative care in this conversation. (4) Thrombocytopenia: Impression: Platelet counts are stable. CBC daily Transfuse platelets if drops below 10 Laboratory Tests 05/14/24 05/15/24 05/16/24 05:00 07:03 05:56 Plt Count 30 L* 35 L* 49 L (5) Cancer associated pain: Impression: Oxycodone 5 mg every 4 hours We are using Dilaudid IV for PeriCare at this point as her radiation chaidez are so severe. We will continue to use topical oxycodone, topical lidocaine, topical Silvadene, She did not get dilaudid from about 9am until 2pm today, but other petit has had 6 doses in the last 24 hours. 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 She is ongoing with radiation treatment This is the cause of her fevers, pancytopenia (7) Fissure, anal: Impression: Pain management as above (8) Anorexia: Impression: Nutrition consult Mirtazapine 7.5 mg Daily (9) Anxiety and depression: Impression: Patient is experiencing anxiety and depression over her course of chemoradiation. We will need to have further discussions regarding possible use of antidepressant through this time. There is a definite side effect of ketamine administration that last for some time regarding relief of depression symptoms. This was another reason that I chose to use this for anxiolysis at the time of manuel painful procedure. Unfortunately, she does not seem any happier. (10) Prediabetes: Impression: A1c 6.1, On 04/10/2024. This is of little significance at this time. . (11) Anemia: Impression: Hemoglobin 8.8 today. Recheck CBC in AM. . I have spent 30 minutes in the care of this patient today. This includes time [id number], review and ordering of diagnostic imaging and laboratory studies.. Monitoring the patient's signs symptoms, evaluation of medication effectiveness and patient's response to treatment.
[2024-05-16] MEDS: ONDANSETRON 4 MG/2 ML VIAL IVP PRN (20:27)
[2024-05-17 06:25] LABS: BASOPHILS % (AUTO) 0.6 %; HCT - HEMATOCRIT 26.2 % (37.0-47.0); HGB - HEMOGLOBIN 8.7 g/dL (12.0-16.0); LYMPHOCYTES # (AUTO) 0.7 10^3/uL (1.5-3.5); LYMPHOCYTES % (AUTO) 36.9 %; MEAN CORPUSCULAR HEMOGLOBIN 31.6 pg (27.0-31.0); MEAN CORPUSCULAR HGB CONC 33.2 g/dL (32.0-36.0); MEAN CORPUSCULAR VOLUME 95.3 fL (81.0-99.0); MEAN PLATELET VOLUME 11.7 fL (7.9-10.8); MONOCYTES # (AUTO) 0.5 10^3/uL (0.0-1.0); MONOCYTES % (AUTO) 27.4 %; NEUTROPHILS % (AUTO) 29.5 %; NRBC ABSOLUTE COUNT (AUTO) 0.06 x10^3/uL; NUCLEATED RED BLOOD CELLS AUTO 3.4 /100WBC; PLT - PLATELET COUNT 75 10^3/uL (130-450); RED BLOOD COUNT 2.75 10^6/uL (4.20-5.40)
[2024-05-17 06:31] LABS: NEUTROPHILS # (AUTO) 0.5 10^3/uL (1.5-6.6); WHITE BLOOD COUNT 1.8 x10^3/uL (4.8-10.8)
[2024-05-17 06:33] LABS: MAGNESIUM 1.8 mg/dL (1.7-2.3)
[2024-05-17 06:39] LABS: ALBUMIN 2.2 g/dL (3.2-5.5); ALBUMIN/GLOBULIN RATIO 0.7 (1.0-2.2); BILIRUBIN,TOTAL 0.2 mg/dL (0.2-1.0); CALCIUM 8.2 mg/dL (8.5-10.3); CREATININE 0.8 mg/dL (0.6-1.3); PHOSPHORUS 2.2 mg/dL (2.5-5.0); POTASSIUM 3.7 mmol/L (3.5-4.5); TOTAL PROTEIN 5.3 g/dL (6.4-8.9)
[2024-05-17 06:50] LABS: DIFFERENTIAL COMMENT MANUAL=AUTO DIFF; PLATELET ESTIMATE, MANUAL DECREASED (<130,000) (NORMAL); PLATELET MORPHOLOGY NORMAL APPEARANCE (NORMAL); RBC MORPHOLOGY (MULTIPLE) 1+ HYPOCHROMASIA (NORMAL); WBC MORPHOLOGY (MULTIPLE) NORMAL APPEARANCE (NORMAL)
--- NOTE | 2024-05-17 17:23 | PROVIDER PROGRESS NOTE ---
Subjective Prog Note Date Prog Note Date: 05/17/24 Prog Note Time: 17:21 Subjective Subjective: She has been sitting in bed for almost a week. We had a long talk today, Dr Lundberg at bedside briefly as well. Current Medications Current Medications Current Medications: Current Medications Generic Name Dose Route Start Last Admin Trade Name Freq PRN Reason Stop Dose Admin Calcium Carbonate/Glycine 500 mg 05/15/24 16:08 Calcium Carbonate Chew 500 Mg Tablet PO QID PRN Heartburn Ceftriaxone Sodium 2 gm 05/13/24 12:00 05/17/24 09:06 Ceftriaxone 2 Gm Vial IVP 2 gm DAILY BARB Administration Hydromorphone HCl 0.5 mg 05/11/24 20:13 05/17/24 13:06 Hydromorphone 0.5 Mg/0.5 Ml Syringe IVP 0.5 mg Q2H PRN Administration Pain 8 to 10 Multivitamins 10 ml/ Zinc/ 2,011 mls @ 83 mls/hr 05/14/24 19:00 05/16/24 20:36 Copper/Manganese/Selenium 1 ml IV 05/17/24 18:59 83 mls/hr / Amino Ac/Electrol/Dextrose/ 1900 BARB Administration Calcium Protocol Fat Emulsion Intravenous 250 mls @ 21 mls/hr 05/14/24 19:00 05/17/24 08:35 Intralipid 20% IV Infused 1900 BARB Infusion Multivitamins 10 ml/ Zinc/ 2,011 mls @ 83.8 mls/hr 05/17/24 19:00 Copper/Manganese/Selenium 1 ml IV / Amino Acids/Electrolytes/ 1900 BARB Dextrose Lidocaine 1 applic 05/12/24 21:39 05/17/24 06:10 Lidocaine Ointment 5% 35.44 Gm Tube TOP 1 applic QID PRN Administration PAIN 5-7 Lidocaine HCl 10 ml 05/11/24 14:46 Lidocaine-Mpf 1% 5 Ml Vial TD QID PRN vaginal pain Midodrine 10 mg 05/11/24 19:00 05/17/24 12:45 Midodrine 10 Mg Tablet PO 10 mg TIDWM BARB Administration Mirtazapine 7.5 mg 05/11/24 21:00 05/16/24 21:12 Mirtazapine 15 Mg Tablet PO 7.5 mg QPM BARB Administration Multi-Ingredient Ointment 1 applic 05/11/24 21:00 05/17/24 09:07 Zinc Oxide 20% Oint 30 Gm Tube TOP 1 applic BID BARB Administration Nystatin 1 applic 05/14/24 10:43 05/17/24 06:31 Nystatin Powder 15 Gm TOP 1 applic PRN PRN Administration NEEDED PER PROVIDER ORDERS Ondansetron HCl 4 mg 05/11/24 20:13 Ondansetron Odt 4 Mg Tablet TL Q6HR PRN Nausea / Vomiting Ondansetron HCl 4 mg 05/11/24 20:13 05/16/24 20:27 Ondansetron 4 Mg/2 Ml Vial IVP 4 mg Q6HR PRN Administration Nausea / Vomiting Oxycodone HCl 5 mg 05/11/24 15:11 05/17/24 00:13 Oxycodone 5 Mg Tablet PO 5 mg Q4H PRN Administration pain > 4 Pantoprazole Sodium 40 mg 05/12/24 07:00 05/17/24 06:31 Pantoprazole 40 Mg Tablet PO 40 mg QDAC BARB Administration Silver Sulfadiazine 1 applic 05/14/24 10:44 05/17/24 06:10 Silver Sulfadiazine Cream 25 Gm Tube TOP 1 applic PRN PRN Administration NEEDED PER PROVIDER ORDERS Sodium Chloride 10 ml 05/11/24 20:13 05/14/24 18:30 Sodium Chloride Flush 0.9% 10 Ml Syringe IVP 10 ml PRN PRN Administration NEEDED PER PROVIDER ORDERS Sodium Chloride 10 ml 05/12/24 01:00 05/17/24 09:07 Sodium Chloride Flush 0.9% 10 Ml Syringe IVP 10 ml 0100,0900,1700 BARB Administration Sterile Water 20 ml 05/13/24 12:00 05/17/24 09:07 Water For Injection,Sterile 10 Ml Vial MC 20 ml DAILY BARB Administration Objective Vital Signs/Intake & Output Reviewed Vital Signs: Yes Vital Signs: Vital Signs x48h Temp Pulse Resp BP Pulse Ox O2 Flow Rate 05/17/24 10:00 36.6 C 103 H 19 128/67 98 0 Intake & Output: Intake & Output 05/14/24 05/15/24 05/16/24 05/17/24 23:59 23:59 23:59 23:59 Intake Total 2810 / 2810 2912 / 2912 2183 / 2183 350 / 350 Output Total 1200 / 1200 825 / 825 1200 / 1200 Balance 2810 / 2810 1712 / 1712 1358 / 1358 -850 / -850 Weight (kg) 90 kg 96 kg 97 kg Objective General Appearance: positive No acute distress and Alert Eyes Bilateral: positive Normal inspection ENT: positive ENT inspection nml Neck: positive Nml inspection Respiratory: positive No respiratory distress and Breath sounds nml Cardiovascular: positive Regular rate & rhythm Abdomen: positive Non-tender and No distention Rectal: positive Other (remains [facility] skin breakdown at the groins creases) Back: positive Nml inspection Extremities: positive Non-tender and No pedal edema Neurologic/Psychiatric: positive Oriented x3 Comments/Other: Lab Results 05/17/24 06:08 05/17/24 06:08 Other Labs: Lab Results x24hrs 05/17/24 Range/Units 06:08 WBC 1.8 L* (4.8-10.8) x10^3/uL RBC 2.75 L (4.20-5.40) 10^6/uL Hgb 8.7 L (12.0-16.0) g/dL Hct 26.2 L (37.0-47.0) % MCV 95.3 (81.0-99.0) fL MCH 31.6 H (27.0-31.0) pg MCHC 33.2 (32.0-36.0) g/dL RDW 17.0 H (12.0-15.0) % Plt Count 75 L (130-450) 10^3/uL MPV 11.7 H (7.9-10.8) fL Neut # (Auto) 0.5 L* (1.5-6.6) 10^3/uL Lymph # (Auto) 0.7 L (1.5-3.5) 10^3/uL [place] # (Auto) 0.5 (0.0-1.0) 10^3/uL Eos # (Auto) 0.0 (0.0-0.7) 10^3/uL Baso # (Auto) 0.0 (0.0-0.1) 10^3/uL Absolute Nucleated RBC 0.06 x10^3/uL Band Neuts % (Manual) Not Reportable Abnorm Lymph % (Manual) Not Reportable Nucleated RBC % 3.4 /100WBC Neutrophils # (Manual) Not Reportable Lymphocytes # (Manual) Not Reportable Monocytes # (Manual) Not Reportable Eosinophils # (Manual) Not Reportable Basophils # (Manual) Not Reportable Differential Comment MANUAL=AUTO DIFF WBC Morphology NORMAL APPEARANCE (NORMAL) Platelet Estimate DECREASED (<130,000) (NORMAL) Platelet Morphology NORMAL APPEARANCE (NORMAL) RBC Morph Micro Appear 1+ HYPOCHROMASIA (NORMAL) Sodium 133 L (135-145) mmol/L Potassium 3.7 (3.5-4.5) mmol/L Chloride 106 (101-111) mmol/L Carbon Dioxide 23 (21-32) mmol/L Anion Gap 4.0 L (6-13) BUN 31 H (6-20) mg/dL Creatinine 0.8 (0.6-1.3) mg/dL Estimated GFR (MDRD) 69 L (>89) Glucose 176 H (74-104) mg/dL Calcium 8.2 L (8.5-10.3) mg/dL Phosphorus 2.2 L (2.5-5.0) mg/dL Magnesium 1.8 (1.7-2.3) mg/dL Total Bilirubin 0.2 (0.2-1.0) mg/dL AST 43 H (10-42) IU/L ALT 59 (10-60) IU/L Alkaline Phosphatase 96 (42-121) IU/L Total Protein 5.3 L (6.4-8.9) g/dL Albumin 2.2 L (3.2-5.5) g/dL Globulin 3.1 (2.1-4.2) g/dL Albumin/Globulin Ratio 0.7 L (1.0-2.2) Prealbumin 7 L (17-34) mg/dL Triglycerides 160 mg/dL Assessment/Plan Problem List (1) Neutropenic fever: Impression: WBC 1.8 ANC 0.5 Trending CBC daily Cefepime, vancomycin as broad-spectrum sepsis coverage, I de-escalated vancomycin on 05/13. Blood cultures positive for Klebsiella. It is sensitive to ceftriaxone as well as cefepime. I am de-escalating to ceftriaxone so that she can get daily coverage. She is on bacteremia dosing at 2 g a day. repeat blood cultures are negative. She is now day 7 cehalosporin (2 days cefepime, 5d rocephin) Blood pressure 79/45, she meets criteria for septic shock at the time of admit. Blood pressures are improved, but she is getting midodrine TID. . She is on TPN. Her oral intake is poor. We decided to continue TPN over the weekend to give her some boost in her nutrition. She has had a bowel movement last 24 hours. Hospital is out of TPN, transitioning to PPN. She does not want to eat or drink secondary to problems with elimination. Midodrine 5 mg p.o. 3 times daily Neutropenic precautions (2) Anal cancer: Impression: cT2N0, anal carcinoma, C1D1 03/23/[address] Huertas's note 04/29/24 Received a dose of chemotherapy on 04/29/2024 She is [place] [facility]. Huertas. She is receiving chemotherapy with 5-fluorouracil + mitomycin. She has 11 out of 30 radiation treatments remaining. I spoke with her radiation oncology practice at [facility]. We discussed her severe perennial discomfort. The recommendation was for Silvadene Epsom salt sitz baths, and Aquaphor., She has completed 2 out of [address] Huertas. I spoke with Dr. Huertas 05/13. He recommended a blood transfusion when her hemoglobin was 6.9. She has been transfused one unit and her Hgb responded appropriately. I discussed her poor intake with Dr. Huertas. Her poor intake is related to her severe discomfort with elimination. She is therefore not eating and not drinking. Dr. Huertas raised the question of TPN to help boost her reserves at this time. I discussed this with pharmacy and we will institute this. She is day two of TPN. this going fine. port is functioning. Discussion with patient at the bedside. She does not see how she can possibly undergo another radiation treatment. She just does not know if she can go through the degree of pain that these radiation treatments have put her through. She is frustrated with her course of radiation. She feels like the answer is the same for every patient, that they must go through the treatment regimen and that there is no adjustment that can be made for her in her situation. She says "I am not sure it will work or if I believe it will work. At this point she feels some disappointment that she will not continue with the treatments but she just does not see how she can. She does not see how she can ever get out of bed again. She does not see how she can ever sit on the toilet again. Further discussion was had regarding continuing treatments. She does not want to let her health care team down if she is discontinuing treatments. Dr. Lundberg and I have both made it quite clear to her that she is not letting anyone on her health care team down if she stops treatments. We are all interested in what is the best thing for her. There is definitely some concern that she could be letting her children down if she discontinues treatments. As her advocates we can help her navigate these choices and their consequences. (3) Radiation burn: Impression: this is causing her great discomfort. I have discussed the patient's overall status with her daughter Joan. Unfortunately Tony is unable to do what she needs to do to try to make herself more comfortable. This is leading to more problems. It seems that she is very uncomfortable when she voids therefore tries not to drink tries not to void holds her urine and this is ultimately likely resulted in the current situation. We will continue to work with the patient and provide excellent nursing care in order to make her as comfortable as possible. I have had discussions with RT. the recommendation is for the patient to press on with her radiation treatment as much as possible. At 19 out of 30 fractions, it is really important for her to continue with radiation in order to reduce the risk of recurrence. At this point if she stops her radiation treatment there will be regrowth of the tumor cells. I have discussed this with the patient her daughter and her son. Tony is very overwhelmed and in great deal of physical discomfort at this time. Her daughter and her son want her to continue to press on and complete her radiation treatment. We discussed the possibility of consulting urology for suprapubic catheter this will remove the problem of urine burning her perineum she still will continue to have to defecate. At this point she is not a candidate for this given her current blood counts. I have spoken with Dr. Lawrence of urology. He recommends against a suprapubic catheter. The patient's body habitus would not support this and the catheter would kinked off. We were unable to get damon placed. Purewick is working well. This may be an option for home, if the family wants to invest in it. I have been working with family and patient to encourage her to complete her course of radiation. She seems more comfortable today. We will try to clean with pericare bottle which I have obtained from the [facility]. This might be very helpful at home over a toilet or bedside commode. She expresses the desire to have discussion about finishing RT, and she wants to do this with her children before leaving the hospital. I think that we need better information on risks of not finishing radiation, and I intend to call her Rad Onc practice to get this information and will also involve Palliative care in this conversation. Palliative care is aware and will be assisting in further conversations. At this point for rest the pursuing further treatment is not an option. (4) Thrombocytopenia: Impression: Platelet counts are stable. CBC daily Transfuse platelets if drops below 10 Laboratory Tests 05/14/24 05/15/24 05/16/24 05:00 07:03 05:56 Plt Count 30 L* 35 L* 49 L 05/17/24 06:08 Plt Count 75 L (5) Cancer associated pain: Impression: Oxycodone 5 mg every 4 hours We are using Dilaudid IV for PeriCare at this point as her radiation chaidez are so severe. We will continue to use topical lotrisone, topical lidocaine, topical Silvadene. No oxycodone was given on the . She had 1 dose of oxycodone given just after midnight on the . She has had 4 doses of Dilaudid each 0.5 mg in the last 24 hours. 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 All indications are that she will be stopping all treatment for her cancer. (7) Fissure, anal: Impression: Pain management as above (8) Anorexia: Impression: Nutrition consult Mirtazapine 7.5 mg Daily (9) Anxiety and depression: Impression: Patient is experiencing anxiety and depression over her course of chemoradiation. This is a situational depression, however the situation is not likely to get markedly better. Will have further discussions with palliative care regarding treatment of her anxiety and depression. She was given ketamine as a sedative several days ago in hopes of the side effects for treating depressive symptoms would be helpful. Today she is actually more able to verbalize her thoughts and feelings than I have seen her which is an improvement (10) Prediabetes: Impression: A1c 6.1, On 04/10/2024. This is of little significance at this time. . (11) Anemia: Impression: Hemoglobin 8.7 today. Recheck CBC in AM. . I have spent 55 minutes in the care of this patient today. This includes time [id number], review and ordering of diagnostic imaging and laboratory studies.discussion with patient's palliative care provider and surgeon. Patient will likely make the decision tomorrow not to pursue further care. Monitoring the patient's signs symptoms, evaluation of medication effectiveness and patient's response to treatment.
[2024-05-17] MEDS: PPN (CLINIMIX E 4.25/5) 2,000 ML with MULTIVITAMIN 10 ML, TRACE ELEMENTS 1 ML IV SCH (17:59)
[2024-05-18 05:30] LABS: BASOPHILS % (AUTO) 0.5 %; HCT - HEMATOCRIT 24.6 % (37.0-47.0); HGB - HEMOGLOBIN 8.2 g/dL (12.0-16.0); LYMPHOCYTES % (AUTO) 27.5 %; MEAN CORPUSCULAR HEMOGLOBIN 32.2 pg (27.0-31.0); MEAN CORPUSCULAR HGB CONC 33.3 g/dL (32.0-36.0); MEAN CORPUSCULAR VOLUME 96.5 fL (81.0-99.0); MEAN PLATELET VOLUME 11.8 fL (7.9-10.8); MONOCYTES % (AUTO) 28.4 %; NEUTROPHILS % (AUTO) 35.8 %; PLT - PLATELET COUNT 107 10^3/uL (130-450); RED BLOOD COUNT 2.55 10^6/uL (4.20-5.40); RED CELL DISTRIBUTION WIDTH 17.2 % (12.0-15.0); WHITE BLOOD COUNT 2.2 x10^3/uL (4.8-10.8)
[2024-05-18 05:45] LABS: ABNORMAL LYMPHS % (MANUAL) 0 %; BAND NEUTROPHILS % (MANUAL) 0 %
[2024-05-18 05:46] LABS: CALCIUM 8.2 mg/dL (8.5-10.3); CREATININE 0.7 mg/dL (0.6-1.3); POTASSIUM 3.6 mmol/L (3.5-4.5)
[2024-05-18 06:06] LABS: LYMPHOCYTES # (MANUAL) 1.1 10^3/uL (1.5-3.5); LYMPHOCYTES % (MANUAL) 51 %; METAMYELOCYTES % (MANUAL) 2 %; MONOCYTES # (MANUAL) 0.3 10^3/uL (0.0-1.0); MYELOCYTES % (MANUAL) 2 %; NEUTROPHILS # (MANUAL) 0.7 10^3/uL (1.5-6.6)
[2024-05-18 06:07] LABS: DIFFERENTIAL COMMENT MANUAL DIFFERENTIAL; PLATELET ESTIMATE, MANUAL DECREASED (<130,000) (NORMAL); PLATELET MORPHOLOGY NORMAL APPEARANCE (NORMAL); RBC MORPHOLOGY (MULTIPLE) NORMAL APPEARANCE (NORMAL); WBC MORPHOLOGY (MULTIPLE) NORMAL APPEARANCE (NORMAL)
--- NOTE | 2024-05-18 12:39 | Palliative Care ---
CC HPI Chief Complaint Chief Complaint: acute pain; anorexia; protien calorie malnutrition; anal cancer; depression History Obtained From Records Reviewed: oncology; labs; hospitalist notes/report History obtained from: patient; son; hospitalist; records History of Present Illness HPI: This is an 83-year-old woman who has had a long complicated course regarding and a recurrent/nonhealing anal fissure. 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 She had started definitive treatment with radiation, with planned course of 30 treatments, has completed all but 11. She has had much encouragement to complete the total but unfortunately is now admitted with severe complications with perianal/area wound, severe pain exacerbated with urination/bowel movements, fearful of eating related to this, and has been bedbound mostly since admission 05/12. She has received two infusions of mitomycin and 5 FU infusion, with first infusion was admitted for hospitalization 04/06-04/15 with pancytopenia, fever and with complications related to norovirus with stay. She did return home, but struggled with regaining strength weight loss, hydration, and worsening side effects of her radiation. Her last treatment was on 04/29/2024, and was admitted again with pancytopenia, sepsis, and incapacitated with her complications with her wound and pain. She has had somewhat of a traumatic stay, trying to attempt to manage her urinary incontinence and pain, with 2 attempts for catheterization, she now has a pure wick in place. She is still quite painful, needing oxycodone and IV Dilaudid to manage her KALEE care and wound care. It has slowly started to improve, but still remains a barrier for her to participate in therapy, as she cannot slide across her perineum. She also originally was quite deconditioned, and this is continued to occur as far as decline in functional status, has not been able to participate in physical therapy. Focus has been getting her to radiation treatments prior to admission. Her son has been here to help with her care, but has become more and more complicated in the context of patient's symptom burden. Patient is overwhelmed, she has made a decision not to continue with radiation therapy. In the context of this this is very difficult, as treatment was of curative intent she feels like she is not meeting people's expectations. Though she is acutely ill and frail, her cancer is localized, palliative care meeting with patient and son and team to further clarify goals as well as possible options. Meds/Allgy Home Medications Ambulatory Orders Medication Instructions Recorded Confirmed losartan 50 mg tablet 25 mg PO DAILY 10/11/20 05/11/24 rosuvastatin 20 mg tablet 20 mg PO DAILY 01/19/24 05/11/24 lidocaine 5 % topical ointment 1 applic topical QID #35.44 grams 01/26/24 05/11/24 ondansetron HCl 8 mg tablet 8 mg PO TID #90 tabs 03/23/24 05/11/24 prochlorperazine maleate 10 mg 10 mg PO TID #90 tabs 03/23/24 05/11/24 tablet (Compazine) acetaminophen 500 mg tablet 500 mg PO Q4H PRN pain 04/07/24 05/11/24 xanwqlp-bhffxzperkobr-cifpjbki 250 1 tab PO Q4H PRN headache 04/07/24 05/11/24 mg-250 mg-65 mg tablet (Excedrin Extra Strength) diphenhydramine 25 1 tab PO HS PRN pain 04/07/24 05/11/24 mg-acetaminophen 500 mg tablet (Acetaminophen PM Extra Strength) omeprazole 20 mg capsule,delayed 20 mg PO DAILY 04/07/24 05/11/24 release polyethylene glycol 3350 17 17 g PO DAILY PRN constipation 04/07/24 05/11/24 gram/dose oral powder sumatriptan succinate 50 mg tablet 50 mg PO DAILY PRN migraine 04/07/24 05/11/24 (Imitrex) headache mirtazapine 7.5 mg tablet 7.5 mg PO .bedtime #30 tabs 04/23/24 05/11/24 oxycodone 5 mg tablet 5 mg PO Q4H PRN pain #15 tabs 05/10/24 05/11/24 Allergies Allergies Allergy/AdvReac Type Severity Reaction Status Date / Time meperidine (From Demerol) Allergy Cramps Verified 05/11/24 13:01 Palliative Care Performance Status Performance status: Patient prior to admit, had been having declining functional status, particular in the last several days. Needing maximum contact assist for ambulation. Patient has been going to daily radiation, has been quite sedentary, has had home health ordered, but unable to really participate at this point in time. Patient since hospitalization has been limited related to her perineal pain, so has had deconditioning over several weeks to months now, would benefit from support and progressive rehab program.Patient and be able to care for herself currently, is mostly bedbound, this is multifactorial as far as barriers. Palliative Care Discussion: Palliative care was asked to meet with patient and son regarding priorities and goals of care. She is able to reflect regarding her wishes to not continue radiation, she feels like she cannot go through any more of this, the treatment was not what she expected. She is feeling quite blindsided, and distressed, regarding feels like she has been "Citizen [place] fried, toasted, and blowtorched",. She is quite distressed at her declining functional status, expressing feelings of distress of letting people down, and not meeting expectations. Her son Chip at bedside, is very understanding of her current situation, does feel that not only the physical distress, but also emotional is impacting her. We reviewed her care needs at home were getting increasingly difficult, particularly with patient's continued pain, son does feel like she has been "on a hunger strike " given pain with bodily functions. Patient is worried about the impact on her survival and what this all means. We did review that she has localized disease she is not imminently dying this is a the results of her acute sequela of her radiation, that we can revisit in the future as far as further surveillance and options regarding her cancer. Recommended we take this one step at a time, in the context of deciding a transition plan. With patient not receiving radiation, patient should continue to improve with wound healing, but unable to care for this for herself at this time, would benefit from custodial care as well as rehab care for returning to previous level of function.She is quite clear until her pain is better it is difficult for her to participate but understands rationale, this will be a difficult goal, and we did discuss home versus placement, and are in agreement patient could use a bridge plan for her immediate care needs, strengthening, and wound carewhich would make a rehab stay desirable at this time.This would be helpful for her son as well, he is able to help provide support and advocacy for her, her biggest goal is "to get my life back". Impression Impression: This is an 83-year-old woman who has been hospitalized with acute sequela of her radiation and cancer treatment for anal cancer. She does present with failure to thrive, with depression, decline in functional status, and protein calorie malnutrition. She is getting support, with slow improvement here in the hospital. Palliative care meeting with patient and son regarding next steps, as patient does not want to continue with radiation. Both are open to exploring SNF placement for rehab as an initial step for supporting healing journey. Vitals Vital Signs 05/11/24 13:01 05/11/24 15:04 05/11/24 17:00 05/11/24 18:22 05/11/24 18:31 05/11/24 19:31 05/11/24 20:04 05/11/24 20:05 05/12/24 01:06 05/12/24 03:05 05/12/24 03:24 05/12/24 03:47 05/12/24 04:47 05/12/24 14:00 05/12/24 16:09 05/13/24 05:29 05/13/24 10:51 05/13/24 16:24 05/13/24 22:26 05/13/24 22:40 05/14/24 01:20 05/14/24 02:21 05/14/24 02:52 05/14/24 03:30 05/14/24 14:00 05/14/24 16:06 05/14/24 17:31 05/14/24 17:58 05/14/24 18:25 05/14/24 18:28 05/14/24 18:36 05/14/24 18:39 05/14/24 18:47 05/14/24 19:15 05/15/24 00:40 05/15/24 08:38 05/15/24 13:26 05/15/24 16:02 05/16/24 01:41 05/16/24 05:45 05/16/24 14:48 05/16/24 16:08 05/17/24 00:17 05/17/24 06:00 05/17/24 10:00 05/17/24 18:36 05/18/24 01:58 05/18/24 07:32 05/18/24 09:00 05/18/24 15:33 05/18/24 19:44 Height 5 ft 1.5 in 5 ft 1 in 5 ft 1 in Weight 192 lb 196 lb 3.382 oz 198 lb 6.656 o z 211 lb 10.3 oz 213 lb 13.574 oz 214 lb 15.211 oz 213 lb 13.574 oz BMI 40.4 BP 150/90 H 90/40 L 90/40 L 79/45 L 79/45 L 93/48 L 97/48 L 105/56 L 11 2/51 L 106/67 104/65 114/50 L 101/56 L 119/57 L 100/51 L 103/57 L 115/57 L 89/54 L 82/57 L 120/62 105/49 L 101/52 L 106/54 L 129/64 126/67 129/60 117/48 L 93/67 91/59 L 94/49 L 107/53 L 107/53 L 102/47 L 109/60 124/63 112/60 138/75 H 98/64 126/76 127/66 128/67 117/70 122/60 115/53 L 135/73 H Respiration 18 16 18 22 15 16 18 18 14 14 14 14 18 20 18 22 14 18 16 18 14 16 16 19 18 16 20 12 12 12 12 12 16 22 16 18 20 20 16 22 19 20 20 19 16 Pulse 100 102 H 99 99 90 92 86 96 97 98 100 82 95 99 93 91 90 90 91 84 83 83 86 85 86 82 86 97 91 89 87 87 78 87 92 94 103 H 92 99 97 103 H 84 92 78 95 Temp 98.4 F 98.8 F 98.4 F 97.5 F L 97.3 F L 97.2 F L 97.2 F L 98.1 F 97.3 F L 97.3 F L 97.7 F 97.5 F L 97.9 F 97.7 F 97.3 F L 97.0 F L 97.2 F L 97 .5 F L 97.7 F 97.3 F L 97.3 F L 97.5 F L 97.3 F L 97.5 F L 97.2 F L 97.5 F L 97.7 F 97.5 F L 97.5 F L 97.5 F L 97.9 F 97.9 F 97.3 F L 97.9 F 97.3 F L Temp Source Oral Temporal Artery Scan Temporal Artery Scan Temporal Art madeleine Scan Temporal Artery Scan Temporal Artery Scan Temporal Artery Scan Temporal Artery Scan Temporal Artery Scan Temporal Artery Scan Temporal Artery Scan Temporal Artery Scan Temporal Artery Scan Temporal Artery Scan Temporal Arter y Scan Temporal Artery Scan Temporal Artery Scan Temporal Artery Scan Temporal Artery Scan Temporal Artery Scan Temporal Artery Scan Temporal Artery Sca n Temporal Artery Scan Temporal Artery Scan Skin Temporal Artery Scan Tempora l Artery Scan Skin Temporal Artery Scan Temporal Artery Scan Temporal Artery S can Temporal Artery Scan Temporal Artery Scan Pulse Oximetry 92 98 96 96 96 95 96 96 97 97 97 98 92 99 92 92 95 92 93 98 97 97 97 96 97 97 96 92 93 94 96 96 96 96 97 98 96 93 93 96 98 93 94 98 95 [facility] Medical History Medical History (Updated 05/18/24 @ 19:55 by MACI Locke) Anxiety and depression Fissure, anal Rosacea (07/15/22) History of torn meniscus of left knee (07/15/22) Hemorrhoids (07/15/22) Cataract, bilateral (07/15/22) Surgical History Surgical History History of tonsillectomy History of appendectomy H/O: hysterectomy Family History Family History (Updated 02/18/24 @ 13:20 by Basilio Nick CNA) Mother No problems noted. Social History Social History Smoking Status: Never smoker Second hand tobacco smoke exposure: No Do you dip or chew tobacco?: No Do you vape?: No Living arrangement: At home Marital Status: Living Condition: Alone Support Person: Yes Relationship: Child Living Situation Details: daughter lives nearby; providing support and transportation; son is DPOA but in [place] Level: Independent Home Mobility Equipment: Walker Do you feel safe in your home environment?: Yes Suffered physical, verbal, emotional, or financial abuse?: No ETOH Use: Wine Frequency: Daily Number of Amount/day: 2 (2 glasses of wine for dinner, last used 4 days ago) ETOH Use Details: currently not drinking with treatment Substance Use: denies use 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 POLST Status: Limited Interventions Review of Systems limited ROS Constitutional Reports: Fatigue, Weakness, Poor appetite, Weight loss and Change in sleep pattern Ears, nose, mouth, and throat Reports: Nasal congestion and Dry mouth Cardiovascular Reports: Decreased exercise tolerance Gastrointestinal Reports: Abdominal pain (describes cramping she attributes to constipation), Poor appetite, Constipation (passing small amounts), Feeling full early and Rectal pain Genitourinary Reports: Painful urination, Urinary frequency, Urinary urgency, Urinary incontinence, Difficulty voiding and Other (periarea/rectal pain from radiation chaidez) Musculoskeletal Reports: Limited range of motion, Muscle cramps, Muscle weakness and Other (been bedbound mostly since admit) Integumentary/Breast Reports: Redness, Skin pain and Non-healing lesion Neurological Reports: General weakness, Weakness in extremities and Memory problems Psychiatric Reports: Depression, Anxiety, Mood swings, Hopelessness, Loss of interest, Irritability, Difficulty concentrating and Visual hallucinations Endocrine Reports: Fatigue Hematologic/Lymphatic Reports: Anemia (received transfusion) Exam Exam Patient appears pale, fatigued, laying in bed. She is able to engage, does so through conversation have some intermittent visual hallucinations, but aware. She is able to engage in conversation as far as expressed her feelings, clarify information, share priorities regarding her goals. She is not in respiratory distress, she does have intermittent pain behaviors with urinating, cramping regarding constipation/abdomen, but no physical exam done due to the focus of the visit. Assessment & Plan Assessment & Plan (1) Anal squamous cell carcinoma: Assessment: Patient's treatment was set up for curative intent, unfortunately she has had significant sequela both with hospitalization related to chemotherapy, and now with severe chaidez related to radiation. She does have localized disease, reassured her and her family she is not a candidate for hospice, if she can get passes acute event, hopefully will return back to previous level of functioning. She will need ongoing surveillance, did reach out to Dr. Huertas regarding plan, supportive of patient's quality of life. Message left for Dr. Coffey and will follow-up tomorrow Code(s): C21.0 - Malignant neoplasm of anus, unspecified (2) Anxiety and depression: Assessment: Patient presents with acute exacerbation of anxiety and depression, had been started on mirtazapine, and review with son may have not been taking over the last week. Has been receiving while she is in the hospital. Spoke with hospitalist, recommend increasing to 15 mg at bedtime. This would address insomnia, depression, and often assist with appetite. Code(s): F41.9 - Anxiety disorder, unspecified; F32.A - Depression, unspecified (3) Acute pain: Assessment: Patient with fluctuating acute pain, needing IV Dilaudid for KALEE care, has been using intermittent oxycodone but has significant reluctance to taking pain medications. Will expect pain will continue to improve, with healing in her KALEE area, but still is quite pronounced. As patient tolerates, would recommend transition over to oral hydromorphone in preparation for transition to home or SNF setting, may have more quick acting effect particularly since patient most likely will taper herself off given her biases, and can use preemptively for expected painful encounters. Code(s): R52 - Pain, unspecified (4) Muscular deconditioning: Assessment: Patient has had a decline in functional status, with increased deconditioning, this is multifactorial, given now her second prolonged hospitalization.As patient's wounds heal, and pain more tolerable, expect patient to be able to participate and continue with strengthening. Patient has had significant muscle wasting/loss and would benefit from concentrated and supportive therapy. Code(s): R29.898 - Other symptoms and signs involving the musculoskeletal system (5) Anorexia: Assessment: This is been persistent since her first hospitalization, it has been multifactorial as the patient's reluctance to eat and drink secondary to perirectal pain. Suspect this will continue to improve, patient had used some CBD at home, nutritional support through oral supplements and small frequent feedings certainly to be a focus. Currently receiving PPN, would continue until discharged in the context of healing and decreased intake. Will also increase mirtazapine to see if this will help as well. Code(s): R63.0 - Anorexia Plan Will continue to follow course, provide support and continue to explore goals and supports for transition planning. Recommended PT/OT evaluation, social work for placement, did review caregiving resources with son. Patient does have lo -term care insurance but there are stipulations on this, patient concerns include financial toxicity in the long-term. Medications: Discontinued amoxicillin-pot clavulanate 875-125 mg Discontinued Reason: Completed therapy 1 tab PO BID 5 days 10 tabs 0RF R50.9 - Fever, unspecified triamcinolone acetonide 0.05% Apply to rash at back of hands once nightly prior to bed for no more than 2 weeks at a time, prn rash r/t chemotherapy. Discontinued Reason: Completed therapy 1 applic topical QDAY 110 grams 0RF
[2024-05-18] MEDS: FOSFOMYCIN TROMETHAMINE 3 GM PACKET PO ONE (13:42)
--- NOTE | 2024-05-18 18:17 | PROVIDER PROGRESS NOTE ---
Subjective Prog Note Date Prog Note Date: 05/18/24 Prog Note Time: 12:30 Subjective Subjective: Much more bright today. She is ready for the next step in her treatment. She is requiring parenteral narcotics for care, but otherwise is doing well. no fevers. Current Medications Current Medications Current Medications: Current Medications Generic Name Dose Route Start Last Admin Trade Name Freq PRN Reason Stop Dose Admin Calcium Carbonate/Glycine 500 mg 05/15/24 16:08 Calcium Carbonate Chew 500 Mg Tablet PO QID PRN Heartburn Ceftriaxone Sodium 2 gm 05/13/24 12:00 05/18/24 08:27 Ceftriaxone 2 Gm Vial IVP 2 gm DAILY BARB Administration Hydromorphone HCl 0.5 mg 05/11/24 20:13 05/18/24 18:07 Hydromorphone 0.5 Mg/0.5 Ml Syringe IVP 0.5 mg Q2H PRN Administration Pain 8 to 10 Fat Emulsion Intravenous 250 mls @ 21 mls/hr 05/14/24 19:00 05/18/24 05:56 Intralipid 20% IV Infused 1900 BARB Infusion Multivitamins 10 ml/ Zinc/ 2,011 mls @ 83.8 mls/hr 05/17/24 19:00 05/17/24 22:55 Copper/Manganese/Selenium 1 ml IV 83.8 mls/hr / Amino Acids/Electrolytes/ 1900 BARB Infusion Dextrose Lidocaine 1 applic 05/12/24 21:39 05/18/24 08:28 Lidocaine Ointment 5% 35.44 Gm Tube TOP 1 applic QID PRN Administration PAIN 5-7 Lidocaine HCl 10 ml 05/11/24 14:46 Lidocaine-Mpf 1% 5 Ml Vial TD QID PRN vaginal pain Mirtazapine 7.5 mg 05/11/24 21:00 05/17/24 21:26 Mirtazapine 15 Mg Tablet PO 7.5 mg QPM BARB Administration Multi-Ingredient Ointment 1 applic 05/11/24 21:00 05/18/24 08:28 Zinc Oxide 20% Oint 30 Gm Tube TOP 1 applic BID BARB Administration Nystatin 1 applic 05/14/24 10:43 05/18/24 08:28 Nystatin Powder 15 Gm TOP 1 applic PRN PRN Administration NEEDED PER PROVIDER ORDERS Ondansetron HCl 4 mg 05/11/24 20:13 Ondansetron Odt 4 Mg Tablet TL Q6HR PRN Nausea / Vomiting Ondansetron HCl 4 mg 05/11/24 20:13 05/16/24 20:27 Ondansetron 4 Mg/2 Ml Vial IVP 4 mg Q6HR PRN Administration Nausea / Vomiting Oxycodone HCl 5 mg 05/11/24 15:11 05/18/24 11:58 Oxycodone 5 Mg Tablet PO 5 mg Q4H PRN Administration pain > 4 Pantoprazole Sodium 40 mg 05/12/24 07:00 05/18/24 06:01 Pantoprazole 40 Mg Tablet PO 40 mg QDAC BARB Administration Polyethylene Glycol 17 gm 05/19/24 09:00 Polyethylene Glycol 3350 17 Gm Packet PO DAILY BARB Senna 8.6 mg 05/19/24 09:00 Senna 8.6 Mg Tablet PO DAILY BARB Silver Sulfadiazine 1 applic 05/14/24 10:44 05/18/24 08:29 Silver Sulfadiazine Cream 25 Gm Tube TOP 1 applic PRN PRN Administration NEEDED PER PROVIDER ORDERS Sodium Chloride 10 ml 05/11/24 20:13 05/17/24 17:42 Sodium Chloride Flush 0.9% 10 Ml Syringe IVP 10 ml PRN PRN Administration NEEDED PER PROVIDER ORDERS Sodium Chloride 10 ml 05/12/24 01:00 05/18/24 18:08 Sodium Chloride Flush 0.9% 10 Ml Syringe IVP 10 ml 0100,0900,1700 BARB Administration Sterile Water 20 ml 05/13/24 12:00 05/18/24 08:27 Water For Injection,Sterile 10 Ml Vial MC 20 ml DAILY BARB Administration Objective Vital Signs/Intake & Output Reviewed Vital Signs: Yes Vital Signs: Vital Signs x48h Temp Pulse Resp BP Pulse Ox 05/18/24 15:33 36.3 C L 95 16 135/73 H 95 Intake & Output: Intake & Output 05/15/24 05/16/24 05/17/24 05/18/24 23:59 23:59 23:59 23:59 Intake Total 2912 / 2912 2183 / 2183 3077 / 3077 147 / 147 Output Total 1200 / 1200 825 / 825 1900 / 1900 1750 / 1750 Balance 1712 / 1712 1358 / 1358 1177 / 1177 -1603 / -1603 Weight (kg) 90 kg 96 kg 97 kg 97 kg Objective General Appearance: positive No acute distress and Alert Eyes Bilateral: positive Normal inspection ENT: positive ENT inspection nml Neck: positive Nml inspection Respiratory: positive No respiratory distress and Breath sounds nml Cardiovascular: positive Regular rate & rhythm Abdomen: positive Non-tender and No distention Rectal: positive Other (remains wth skin breakdown at the groins creases) Back: positive Nml inspection Extremities: positive Non-tender and No pedal edema Neurologic/Psychiatric: positive Oriented x3 Comments/Other: exam of the perineum/perirectal areas- she continues to have open area of her right buttock (dressing this with xeroform), perirectal area of tissue that has fibrinous slough, labial areas are less swollen and drainage at this time is serous and less copious with less active bleeding. Lab Results 05/18/24 05:17 05/18/24 05:17 Other Labs: Lab Results x24hrs 05/18/24 Range/Units 05:17 WBC 2.2 L (4.8-10.8) x10^3/uL RBC 2.55 L (4.20-5.40) 10^6/uL Hgb 8.2 L (12.0-16.0) g/dL Hct 24.6 L (37.0-47.0) % MCV 96.5 (81.0-99.0) fL MCH 32.2 H (27.0-31.0) pg MCHC 33.3 (32.0-36.0) g/dL RDW 17.2 H (12.0-15.0) % Plt Count 107 L (130-450) 10^3/uL MPV 11.8 H (7.9-10.8) fL Neut # (Auto) Not Reportable Lymph # (Auto) Not Reportable Ray # (Auto) Not Reportable Eos # (Auto) Not Reportable Baso # (Auto) Not Reportable Absolute Nucleated RBC Not Reportable Total Counted 100 Band Neuts % (Manual) 0 (0 - 10) % Abnorm Lymph % (Manual) 0 % Metamyelocytes % 2 H ( - 0) % Myelocytes % 2 H ( - 0) % Nucleated RBC % Not Reportable Neutrophils # (Manual) 0.7 L (1.5-6.6) 10^3/uL Lymphocytes # (Manual) 1.1 L (1.5-3.5) 10^3/uL Monocytes # (Manual) 0.3 (0.0-1.0) 10^3/uL Eosinophils # (Manual) 0.0 (0-0.7) 10^3/uL Basophils # (Manual) 0.0 (0-0.1) 10^3/uL Differential Comment MANUAL DIFFERENTIAL WBC Morphology NORMAL APPEARANCE (NORMAL) Platelet Estimate DECREASED (<130,000) (NORMAL) Platelet Morphology NORMAL APPEARANCE (NORMAL) RBC Morph Micro Appear NORMAL APPEARANCE (NORMAL) Sodium 136 (135-145) mmol/L Potassium 3.6 (3.5-4.5) mmol/L Chloride 107 (101-111) mmol/L Carbon Dioxide 25 (21-32) mmol/L Anion Gap 4.0 L (6-13) BUN 26 H (6-20) mg/dL Creatinine 0.7 (0.6-1.3) mg/dL Estimated GFR (MDRD) 80 L (>89) Glucose 116 H (74-104) mg/dL Calcium 8.2 L (8.5-10.3) mg/dL Assessment/Plan Problem List (1) Neutropenic fever: Impression: WBC 2.2 ANC0.7 Trending CBC daily Cefepime, vancomycin as broad-spectrum sepsis coverage, I de-escalated vancomycin on 05/13. Blood cultures positive for Klebsiella. It is sensitive to ceftriaxone as well as cefepime. I am de-escalating to ceftriaxone so that she can get daily coverage. She is on bacteremia dosing at 2 g a day. repeat blood cultures are negative. She is now day 8 cephalosporin (2 days cefepime, 5d rocephin). Tomorrow will be day #9. reasonable to stop in 1-2 days. Blood pressure 79/45, she meets criteria for septic shock at the time of admit. Blood pressures are improved. I discontinued Midodrine in the evening of 05/17, and she has done well overnight and today. She is on PPN. Her oral intake is poor. The we have done this for several days to increase her reserves. Will discontinue this on 05/19. (2) Anal cancer: Impression: cT2N0, anal carcinoma, C1D1 03/23/[address] Huertas's note 04/29/24 Received a dose of chemotherapy on 04/29/2024 She is seen in the [facility] clinic by Dr. Huertas. She is receiving chemotherapy with 5-fluorouracil + mitomycin. She has 11 out of 30 radiation treatments remaining. I spoke with her radiation oncology practice at [facility]. We discussed her severe perennial discomfort. The recommendation was for Silvadene Epsom salt sitz baths, and Aquaphor., She has completed 2 out of [address] Huertas. I spoke with Dr. Huertas 05/13. He recommended a blood transfusion when her hemoglobin was 6.9. She has been transfused one unit and her Hgb responded appropriately. I discussed her poor intake with Dr. Huertas. Her poor intake is related to her severe discomfort with elimination. She is therefore not eating and not drinking. Dr. Huertas raised the question of TPN to help boost her reserves at this time. I discussed this with pharmacy and we will institute this. She is on PPN this going fine. port is functioning. She does not want to eat Discussion with patient at the bedside. She does not see how she can possibly undergo another radiation treatment. She just does not know if she can go through the degree of pain that these radiation treatments have put her through. She is frustrated with her course of radiation. She feels like the answer is the same for every patient, that they must go through the treatment regimen and that there is no adjustment that can be made for her in her situation. She says "I am not sure it will work or if I believe it will work." At this point she feels some disappointment that she will not continue with the treatments but she just does not see how she can. She does not see how she can ever get out of bed again. She does not see how she can ever sit on the toilet again. Further discussion was had regarding continuing treatments. She does not want to let her health care team down if she is discontinuing treatments. Dr. Lundberg and I have both made it quite clear to her that she is not letting anyone on her health care team down if she stops treatments. We are all interested in what is the best thing for her. There is definitely some concern that she could be letting her children down if she discontinues treatments. As her advocates we can help her navigate these choices and their consequences. Palliative care discussion today with patient. She can and will recover from this. The recommendation is for SNF, for rehabilitation. Family is amenable to this, and has chosen possible facility. (3) Radiation burn: Impression: this is causing her great discomfort. I have discussed the patient's overall status with her daughter Joan. Unfortunately Tony is unable to do what she needs to do to try to make herself more comfortable. This is leading to more problems. It seems that she is very uncomfortable when she voids therefore tries not to drink tries not to void holds her urine and this is ultimately likely resulted in the current situation. We will continue to work with the patient and provide excellent nursing care in order to make her as comfortable as possible. I have had discussions with RT. the recommendation is for the patient to press on with her radiation treatment as much as possible. At 19 out of 30 fractions, it is really important for her to continue with radiation in order to reduce the risk of recurrence. At this point if she stops her radiation treatment there will be regrowth of the tumor cells. I have discussed this with the patient her daughter and her son. Tony is very overwhelmed and in great deal of physical discomfort at this time. Her daughter and her son want her to continue to press on and complete her radiation treatment. We discussed the possibility of consulting urology for suprapubic catheter this will remove the problem of urine burning her perineum she still will continue to have to defecate. At this point she is not a candidate for this given her current blood counts. I have spoken with Dr. Lawrence of urology. He recommends against a suprapubic catheter. The patient's body habitus would not support this and the catheter would kinked off. We were unable to get damon placed. Purewick is working well. This may be an option for home, if the family wants to invest in it. I have been working with family and patient to encourage her to complete her course of radiation. She seems more comfortable today. We will try to clean with pericare bottle which I have obtained from the [facility]. This might be very helpful at home over a toilet or bedside commode. She expresses the desire to have discussion about finishing RT, and she wants to do this with her children before leaving the hospital. I think that we need better information on risks of not finishing radiation, and I intend to call her Rad Onc practice to get this information and will also involve Palliative care in this conversation. Ultimately the decision the patient came to was not to finish her course of radiation. She will focus on rehab so that she can ultimately get home and become independent once again. (4) Thrombocytopenia: Impression: Platelet counts are stable. CBC daily 2 Laboratory Tests 05/15/24 05/16/24 05/17/24 07:03 05:56 06:08 Plt Count 35 L* 49 L 75 L 05/18/24 05:17 Plt Count 107 L (5) Cancer associated pain: Impression: 6 doses of IV Dilaudid at 0.5 mg per dose in the last 24 hours oxycodone has been given 3 times in the last 24 hours at a dose of 5 mg. We need to focus on using p.o. pain medicine so that we can get this patient to rehabilitation. (6) Anal squamous cell carcinoma: Impression: She has completed as much of her cancer treatment as she intends to (7) Fissure, anal: Impression: Pain management as above (8) Anorexia: Impression: Nutrition consult Mirtazapine 7.5 mg Daily (9) Anxiety and depression: Impression: Patient is experiencing anxiety and depression over her course of chemoradiation. This is a situational depression, however the situation is not likely to get markedly better. Will have further discussions with palliative care regarding treatment of her anxiety and depression. She was given ketamine as a sedative several days ago in hopes of the side effects for treating depressive symptoms would be helpful. Today she is actually more able to verbalize her thoughts and feelings than I have seen her which is an improvement (10) Prediabetes: Impression: A1c 6.1, On 04/10/2024. This is of little significance at this time. . (11) Anemia: Impression: Hemoglobin 8.2 today. Recheck CBC in AM. . I have spent 40 minutes in the care of this patient today. This includes time [id number], review and ordering of diagnostic imaging and laboratory studies.discussion with patient's palliative care provider. Transitioning to rehab as soon as we can find a bed.She should be medically clear tomorrow..
[2024-05-19 05:02] LABS: BASOPHILS % (AUTO) 0.5 %; HGB - HEMOGLOBIN 8.2 g/dL (12.0-16.0); LYMPHOCYTES % (AUTO) 24.8 %; MEAN CORPUSCULAR HEMOGLOBIN 31.9 pg (27.0-31.0); MEAN CORPUSCULAR HGB CONC 32.8 g/dL (32.0-36.0); MEAN CORPUSCULAR VOLUME 97.3 fL (81.0-99.0); MEAN PLATELET VOLUME 11.8 fL (7.9-10.8); MONOCYTES % (AUTO) 25.1 %; NEUTROPHILS % (AUTO) 40.2 %; PLT - PLATELET COUNT 150 10^3/uL (130-450); RED BLOOD COUNT 2.57 10^6/uL (4.20-5.40); RED CELL DISTRIBUTION WIDTH 17.3 % (12.0-15.0); WHITE BLOOD COUNT 3.8 x10^3/uL (4.8-10.8)
[2024-05-19 05:18] LABS: ALBUMIN 2.3 g/dL (3.2-5.5); ALBUMIN/GLOBULIN RATIO 0.7 (1.0-2.2); BILIRUBIN,TOTAL 0.2 mg/dL (0.2-1.0); CREATININE 0.7 mg/dL (0.6-1.3); MAGNESIUM 1.9 mg/dL (1.7-2.3); PHOSPHORUS 3.4 mg/dL (2.5-5.0); POTASSIUM 4.1 mmol/L (3.5-4.5); TOTAL PROTEIN 5.4 g/dL (6.4-8.9)
[2024-05-19 05:31] LABS: ABNORMAL LYMPHS % (MANUAL) 1 %; BAND NEUTROPHILS % (MANUAL) 11 %; BASOPHILS % (MANUAL) 1 %; LYMPHOCYTES % (MANUAL) 25 %; METAMYELOCYTES % (MANUAL) 3 %; MONOCYTES # (MANUAL) 0.5 10^3/uL (0.0-1.0); MYELOCYTES % (MANUAL) 2 %; NEUTROPHILS # (MANUAL) 2.1 10^3/uL (1.5-6.6)
[2024-05-19 05:32] LABS: DIFFERENTIAL COMMENT MANUAL DIFFERENTIAL; PLATELET ESTIMATE, MANUAL NORMAL (130-450,000) (NORMAL); PLATELET MORPHOLOGY NORMAL APPEARANCE (NORMAL); RBC MORPHOLOGY (MULTIPLE) NORMAL APPEARANCE (NORMAL); WBC MORPHOLOGY (MULTIPLE) NORMAL APPEARANCE (NORMAL)
[2024-05-19] MEDS: SENNA 8.6 MG TABLET PO SCH (09:08)
[2024-05-19] MEDS: polyethylene glycoL 3350 17 GM PACKET PO SCH (09:08)
--- NOTE | 2024-05-19 09:08 | PROVIDER PROGRESS NOTE ---
Subjective Subjective Subjective: Overall, patient states that she is feeling better. Pain is well-controlled. Her buttocks are burning a little bit. She has no difficulty breathing. She is satisfied with her conversation yesterday with palliative care. She is looking forward to going to rehab facility to get stronger. Her appetite has not returned yet. She is open to trying to eat something this morning. Current Medications Current Medications Current Medications: Current Medications Generic Name Dose Route Start Last Admin Trade Name Freq PRN Reason Stop Dose Admin Calcium Carbonate/Glycine 500 mg 05/15/24 16:08 Calcium Carbonate Chew 500 Mg Tablet PO QID PRN Heartburn Hydromorphone HCl 0.5 mg 05/11/24 20:13 05/19/24 03:42 Hydromorphone 0.5 Mg/0.5 Ml Syringe IVP 0.5 mg Q2H PRN Administration Pain 8 to 10 Fat Emulsion Intravenous 250 mls @ 21 mls/hr 05/14/24 19:00 05/19/24 06:20 Intralipid 20% IV Infused 1900 BARB Infusion Multivitamins 10 ml/ Zinc/ 2,011 mls @ 83.8 mls/hr 05/17/24 19:00 05/18/24 18:25 Copper/Manganese/Selenium 1 ml IV 84 mls/hr / Amino Acids/Electrolytes/ 1900 BARB Administration Dextrose Lidocaine 1 applic 05/12/24 21:39 05/19/24 06:20 Lidocaine Ointment 5% 35.44 Gm Tube TOP 1 applic QID PRN Administration PAIN 5-7 Lidocaine HCl 10 ml 05/11/24 14:46 Lidocaine-Mpf 1% 5 Ml Vial TD QID PRN vaginal pain Mirtazapine 7.5 mg 05/11/24 21:00 05/18/24 20:56 Mirtazapine 15 Mg Tablet PO 7.5 mg QPM BARB Administration Multi-Ingredient Ointment 1 applic 05/11/24 21:00 05/18/24 20:56 Zinc Oxide 20% Oint 30 Gm Tube TOP 1 applic BID BARB Administration Nystatin 1 applic 05/14/24 10:43 05/18/24 08:28 Nystatin Powder 15 Gm TOP 1 applic PRN PRN Administration NEEDED PER PROVIDER ORDERS Ondansetron HCl 4 mg 05/11/24 20:13 Ondansetron Odt 4 Mg Tablet TL Q6HR PRN Nausea / Vomiting Ondansetron HCl 4 mg 05/11/24 20:13 05/16/24 20:27 Ondansetron 4 Mg/2 Ml Vial IVP 4 mg Q6HR PRN Administration Nausea / Vomiting Oxycodone HCl 5 mg 05/11/24 15:11 05/19/24 05:43 Oxycodone 5 Mg Tablet PO 5 mg Q4H PRN Administration pain > 4 Pantoprazole Sodium 40 mg 05/12/24 07:00 05/19/24 06:09 Pantoprazole 40 Mg Tablet PO 40 mg QDAC BARB Administration Polyethylene Glycol 17 gm 05/19/24 09:00 Polyethylene Glycol 3350 17 Gm Packet PO DAILY BARB Senna 8.6 mg 05/19/24 09:00 Senna 8.6 Mg Tablet PO DAILY BARB Silver Sulfadiazine 1 applic 05/14/24 10:44 05/19/24 06:20 Silver Sulfadiazine Cream 25 Gm Tube TOP 1 applic PRN PRN Administration NEEDED PER PROVIDER ORDERS Sodium Chloride 10 ml 05/11/24 20:13 05/17/24 17:42 Sodium Chloride Flush 0.9% 10 Ml Syringe IVP 10 ml PRN PRN Administration NEEDED PER PROVIDER ORDERS Sodium Chloride 10 ml 05/12/24 01:00 05/19/24 00:07 Sodium Chloride Flush 0.9% 10 Ml Syringe IVP Not Given 0100,0900,1700 BARB Sterile Water 20 ml 05/13/24 12:00 05/18/24 08:27 Water For Injection,Sterile 10 Ml Vial MC 20 ml DAILY BARB Administration Objective Vital Signs/Intake & Output Reviewed Vital Signs: Yes Vital Signs: Vital Signs x48h Temp Pulse Resp BP Pulse Ox O2 Flow Rate 05/19/24 08:24 97.5 F L 89 19 113/70 96 0 05/19/24 01:24 97.7 F 99 16 98/68 93 Intake & Output: Intake & Output 05/16/24 05/17/24 05/18/24 05/19/24 23:59 23:59 23:59 23:59 Intake Total 2183 / 2183 3077 / 3077 1994 250 / 250 Output Total 825 / 825 1900 / 1900 2250 / 2250 650 / 650 Balance 1358 / 1358 1177 / 1177 -255 / -255 -400 / -400 Weight (kg) 96 kg 97 kg 97 kg 96.5 kg Objective General Appearance: positive No acute distress and Alert Eyes Bilateral: positive Normal inspection ENT: positive ENT inspection nml Neck: positive Nml inspection Respiratory: positive No respiratory distress and Breath sounds nml Cardiovascular: positive Regular rate & rhythm Abdomen: positive Non-tender and No distention Rectal: positive Other (remains wth skin breakdown at the groins creases) Back: positive Nml inspection Extremities: positive Non-tender and No pedal edema Neurologic/Psychiatric: positive Oriented x3 Comments/Other: exam of the perineum/perirectal areas- she continues to have open area of her right buttock (dressing this with xeroform), perirectal area of tissue that has fibrinous slough, labial areas are less swollen and drainage at this time is serous and less copious with less active bleeding. Lab Results 05/19/24 04:50 05/19/24 04:50 Other Labs: Lab Results x24hrs 05/19/24 Range/Units 04:50 WBC 3.8 L (4.8-10.8) x10^3/uL RBC 2.57 L (4.20-5.40) 10^6/uL Hgb 8.2 L (12.0-16.0) g/dL Hct 25.0 L (37.0-47.0) % MCV 97.3 (81.0-99.0) fL MCH 31.9 H (27.0-31.0) pg MCHC 32.8 (32.0-36.0) g/dL RDW 17.3 H (12.0-15.0) % Plt Count 150 (130-450) 10^3/uL MPV 11.8 H (7.9-10.8) fL Neut # (Auto) Not Reportable Lymph # (Auto) Not Reportable [place] # (Auto) Not Reportable Eos # (Auto) Not Reportable Baso # (Auto) Not Reportable Absolute Nucleated RBC Not Reportable Total Counted 100 Band Neuts % (Manual) 11 H (0 - 10) % Abnorm Lymph % (Manual) 1 % Metamyelocytes % 3 H ( - 0) % Myelocytes % 2 H ( - 0) % Nucleated RBC % Not Reportable Neutrophils # (Manual) 2.1 (1.5-6.6) 10^3/uL Lymphocytes # (Manual) 1.0 L (1.5-3.5) 10^3/uL Monocytes # (Manual) 0.5 (0.0-1.0) 10^3/uL Eosinophils # (Manual) 0.0 (0-0.7) 10^3/uL Basophils # (Manual) 0.0 (0-0.1) 10^3/uL Differential Comment MANUAL DIFFERENTIAL WBC Morphology NORMAL APPEARANCE (NORMAL) Platelet Estimate NORMAL (130-450,000) (NORMAL) Platelet Morphology NORMAL APPEARANCE (NORMAL) RBC Morph Micro Appear NORMAL APPEARANCE (NORMAL) Sodium 134 L (135-145) mmol/L Potassium 4.1 (3.5-4.5) mmol/L Chloride 105 (101-111) mmol/L Carbon Dioxide 26 (21-32) mmol/L Anion Gap 3.0 L (6-13) BUN 27 H (6-20) mg/dL Creatinine 0.7 (0.6-1.3) mg/dL Estimated GFR (MDRD) 80 L (>89) Glucose 124 H (74-104) mg/dL Calcium 8.0 L (8.5-10.3) mg/dL Phosphorus 3.4 (2.5-5.0) mg/dL Magnesium 1.9 (1.7-2.3) mg/dL Total Bilirubin 0.2 (0.2-1.0) mg/dL AST 52 H (10-42) IU/L ALT 52 (10-60) IU/L Alkaline Phosphatase 97 (42-121) IU/L Total Protein 5.4 L (6.4-8.9) g/dL Albumin 2.3 L (3.2-5.5) g/dL Globulin 3.1 (2.1-4.2) g/dL Albumin/Globulin Ratio 0.7 L (1.0-2.2) Prealbumin 7 L (17-34) mg/dL Assessment/Plan Problem List (1) Neutropenic fever: Impression: Today, WBCs 3.8, and her neutrophils are 2.1. She has been afebrile for over 24 hours. She completed 2 days of vancomycin, 2 days of cefepime, as well as 6 days of Rocephin. She also received 1 dose of fosfomycin for the Enterococcus in her urine. Her urine did grow Proteus, Klebsiella, as well as Enterococcus. She received adequate antibiotic duration for the above. Blood cultures have been negative to date. Her blood pressure has been stable off midodrine. Overall, she is doing well. Awaiting authorization and bed availability at [facility]. She is receiving her last bag of PPN today. Her oral intake is poor. We have done this for several days to increase her reserves. Will discontinue this today. Plan is SNF prior to discharge home. (2) Anal squamous cell carcinoma: Impression: Patient sees Dr. Huertas. She has anal squamous cell carcinoma, cT2 N0. Her ECOG performance status is 2. Prior to admission, she was receiving 5- fluorouracil and mitomycin as well as radiation. She does follow-up with palliative care, and Rukhsana from palliative care had a long discussion with her yesterday, as well as with CATINA Morton: she is not a candidate for hospice at this time. She has severe chaidez related to radiation and would not like any more radiation though. Will still need to follow-up with Dr. Huertas for ongoing surveillance. (3) Anxiety and depression: Impression: Patient is on mirtazapine 7.5 mg every afternoon for the situational anxiety depression regarding her cancer diagnosis, as well as for appetite stimulation. (4) Acute pain: Impression: Patient with ongoing pain: Currently on Dilaudid 0.5 mg every 2 hours as needed while inpatient, as well as oxycodone 5 mg every 4 hours. Will switch to oral hydromorphone today so can discharge with this on discharge. Encouraged to opt for oral pain medications, as opposed to IV. (5) Muscular deconditioning: Impression: Steep decline in functional status with deconditioning due to second prolonged hospitalization. Continue supportive therapy at SNF on discharge. (6) Radiation burn: Impression: CATINA Morton did discuss with radiation therapy in regards to the above radiation burn, as well as urology in regards to possible suprapubic catheter. Patient has decided not to continue with radiation therapy. Urology recommends against suprapubic catheter due to body habitus and positioning and high likelihood of kinking. Nair catheter was attempted, but there may be an area of urethral stenosis and was not successful. Patient and patient's son are going to try to set up a Purewick catheter set up at home. (7) Thrombocytopenia: Impression: Resolved. Platelet count is 150 at this time. (8) Anemia: Impression: Stable, around 8.2. No active bleeding noted. Qualifiers: Anemia type: unspecified type Qualified Code(s): D64.9 - Anemia, unspecified (9) Fissure, anal: Impression: Pain management as above. (10) Anorexia: Impression: Completed last bag of PPN today. Will encourage p.o. intake in the outpatient setting. (11) Prediabetes: Impression: A1c 6.1 on 04/10/2024. Continue to monitor.
--- NOTE | 2024-05-19 11:26 | OT Plan of Care ---
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 Found to have neutropenic fever, blood cultures came back positive for Klebsiella. Adm for pain control and POC development 2/2 perineal discomfit 2/2 ongoing radiation treatment. Pt met supine in bed, A&Ox3 intermittent confusion and decreased processing 2/2 medication and deconditioning. Follows all commands with increased time and cues. Benefits from slow and simple direction. Medicated prior to session with success. Daughter present for session. Pt performed supine to sit MAX AX2 supine to sit, MIN A x2 sit to stand and MIN Ax2 lateral steps to HOB using RW Increased time and cues. Pt unable to progress to OOB at this time 2/2 fatigue and woozy head s/p pain meds. MAX AX2 sit to supine back to bed. Currently MAX A ADLs bed level for comfort and nursing care. Encouraged to progress daily grooming routine seated EOB. Overall pt presents with severe deconditioning, decreased strength, activity tolerance, and ADL status. Will benefit from cont OT services during acute stay. Rec d/c to SNF. -Activities of Daily Living Improve Upper Extremity Dressing to:: Standby Assist Improve Lower Extremity Dressing to:: Standby Assist Improve Grooming/Hygiene to:: Standby Assist Improve Bathing to:: Standby Assist Improve Toileting to:: Standby Assist OT Inpatient Plan PLAN Treatment Frequency: 1x/day Duration: Until goals are met -Discharge Recommendations Discharge Location: [facility] Facility Support/Services Needed: Home Health O.T. Transport Needs at Discharge: B.L.S
--- NOTE | 2024-05-19 11:26 | PT Plan of Care ---
PT Inpatient Plan of Care DIAGNOSIS Diagnosis: Neutropenic fever; sepsis Referring Provider: Selene Donahue Patient Status: Inpatient CHIEF COMPLAINT Chief Complaint: General Weakness Onset of Chief Complaint: QUALITY ASSURANCE MONITOR FINAL MEDICAL/SURGICAL HISTORY Medical History (Updated 05/18/24 @ 19:55 by Rukhsana Lopez SHEET HANGER) Anxiety and depression Fissure, anal Rosacea (07/15/22) History of torn meniscus of left knee (07/15/22) Hemorrhoids (07/15/22) Cataract, bilateral (07/15/22) Surgical History History of tonsillectomy History of appendectomy H/O: hysterectomy BALANCE/FUNCTIONAL RESULTS Sitting Balance: Good Standing Balance: Fair ASSESSMENT Assessment: Pt is an 83yo F recently admitted with neutropenic fever, referred for PT eval d/t deconditioning. Pt was recently hospitalized for similar and was dc'd home with services. Pt lives indep in [facility] with her cat "Josy". Family lives nearby and helps as able but they work multimedia assistant and are unable to help 25/11. Upon PT eval, pt supine in bed, reports moderate to severe pain and requests pain meds. RN provides IV pain meds at start of session. Pt's dtr arrives at this time and remains present throughout. Pt able to transfer to EOB with mod to maxAx2, STS w/ FWW and lateral steps x3 w/ minAx2. Reports dizziness with activity and requires significant increased time to complete all tasks. Pt assisted to supine with maxAx2 and positioned for comfort at end of session. Pt may benefit from skilled PT in acute setting to improve endurance and functional mobility. When medically clear, PT recommends dc to SNF for continued rehab. GOALS Improve supine to sit to:: Contact Guard Improve sit to stand to:: Minimal Assist Improve pivot transfer ability to:: Minimal Assist Improve sit to supine to:: Minimal Assist Improve gait ability to:: Min A Advance Assistive Device to:: Front Wheeled Walker Increase distance walked to (in feet):: 30 Reduce verbal cues to:: 1 Improve Sitting Balance to:: Good PLAN Frequency: 1-2x/day Duration: Until goals are met DISCHARGE RECOMMENDATIONS Discharge Location: Snf Facility DC Equipment Recommended: Front wheeled walker Transport Needs at Discharge: B.L.S Other: BLS d/t high pain level, intermittent confusion, unable to sit for prolonged periods d/t pain
[2024-05-19] MEDS: SIMETHICONE CHEW 80 MG TABLET PO PRN (17:42)
[2024-05-19] MEDS: HYDROmorphone 2 MG TABLET PO PRN (22:32)
[2024-05-20] MEDS: cefTRIAXone 2 GM VIAL IVP SCH (08:28)
--- NOTE | 2024-05-20 10:10 | Discharge Summary ---
"Discharge Summary Admit Date: 05/11/24 Discharge Date: 05/20/24 Discharging Provider: Dr. La Nena Dykes Primary Care Provider: Ciro Barragan Code Status: Do Not Attempt Resuscitation Discharge Facility Name: [facility] DIAGNOSES Admission Diagnoses: Neutropenic fever Anal cancer Radiation burn Thrombocytopenia Discharge Diagnoses with Status of Each Condition: Neutropenic feverpatient has been afebrile for over 24 hours. Her white blood cell count, as well as her neutrophils have improved. She has completed 2 days of vancomycin, 2 days of cefepime, as well as 8 days additional of Rocephin. She also received 1 dose of fosfomycin for Enterococcus in her urine. Anal squamous cell carcinomapatient advised to continue follow-up with Dr. Huertas for continued surveillance. Prior to admission, she was receiving 5- fluorouracil and mitomycin as well as radiation. She does not want radiation anymore. Anxiety and depressioncontinue mirtazapine. She is also using this for appetite stimulation. She received PPN while she was here, and now we are encouraging oral intake. Acute paincontinue oral hydromorphone as needed on discharge. Muscular deconditioningsteep decline in functional status with deconditioning due to to prolonged hospitalizations. Continue physical therapy and Occupational Therapy at SNF. Radiation burnPA and I did speak with radiation oncology as well as urology. PureWick catheter is the best option at this time. Continue this at SNF, patient and patient's family may continue this at home as well. Thrombocytopeniaresolved. Did receive 1 unit of platelets on admission. Anemiastable. No active bleeding noted. Anal fissurepain management as above. Anorexiaencourage p.o. intake. Continue mirtazapine. Prediabetescontinue to monitor glucose. HPI History of Present Illness: Per [employer]SEM[employer] Joseph Duran: 83-year-old female PMH significant for Type 2 diabetes, hypertension, hyperlipidemia, hypothyroidism, osteopenia, GERD, anal cancer Status post radiation, getting chemotherapy. She developed a fever 2 days ago. She was seen in the ER yesterday, and was found to have a non-COVID coronavirus infection and was sent home. She was noted to be neutropenic at that time. Her blood cultures came back positive for Klebsiella, so she was instructed to return to the ER. She also complains of a chronic vaginal pain and urinary burning from her radiation cancer. Denies chest pain, dyspnea, bowel disturbance, swelling in extremities In the ER, workup was significant for sodium 127, WBC 0.1, PLT 9, ANC 0. She was started on IV Zosyn, and hospitalist was contacted for admission for febrile neutropenia CONSULTS | PROCEDURES Consultations: Palliative care, nutrition, pharmacy, physical therapy, Occupational Therap Procedures: Chest x-raydone howed low lung volumes with generalized pulmonary interstitial prominence, mild pulmonary edema Head CTdone 04/06negative for any acute abnormalities chest x-rayrepeat done 05/10showed no acute cardiopulmonary prominence Blood culturesdone 05/13no growth after 5 days Urine culturedone rew Enterococcus faecium, Proteus Mirabella's, Klebsiella pneumonia HOSPITAL COURSE Hospital Course: Patient is a 83-year-old female with a history of squamous cell carcinoma of the anus who is getting chemotherapy and radiation prior to admission. She developed a fever a couple days prior to admission. She was found to be neutropenic. She was initially put on cefepime and vancomycin. This was de- escalated down to Rocephin. Her urine culture grew Enterococcus, Proteus, Klebsiella. She did receive an additional dose of fosfomycin for the Enterococcus. She has completed a 10-day course of IV antibiotics. While she was here, she had poor oral intake. She was started on mirtazapine. She received PPN to increase her reserves. She is starting to eat a little bit more. While she was here, her goals of care were also discussed. Rukhsana with palliative care is very familiar with her. They had a long discussion. She is opted for no more radiation therapy. She will continue to follow-up with Dr. Huertas, her oncologist, for ongoing surveillance. For her pain control, we will continue hydromorphone oral at her SNF. Plan is to discharge to [facility], where she will complete some physical therapy, get stronger, and then go home. ALLERGIES Allergies Allergy/AdvReac Type Severity Reaction Status Date / Time meperidine (From Demerol) Allergy Cramps Verified 05/11/24 13:01 MEDICATIONS Ambulatory Orders Medication Instructions Recorded Confirmed rosuvastatin 20 mg tablet 20 mg PO DAILY 01/19/24 05/11/24 lidocaine 5 % topical ointment 1 applic topical QID #35.44 grams 01/26/24 05/11/24 acetaminophen 500 mg tablet 500 mg PO Q4H PRN pain 04/07/24 05/11/24 [id number]-[id number]-gtzhkfnt 250 1 tab PO Q4H PRN headache 04/07/24 05/11/24 mg-250 mg-65 mg tablet (Excedrin Extra Strength) calcium carbonate 500 mg (2.5 x 200 mg calcium (500 05/20/24 mg)) PO QID PRN Heartburn #30 tabs hydromorphone 2 mg tablet 2 mg PO Q6HR PRN Severe Pain 05/20/24 (Level 7-10) #30 tabs mirtazapine 7.5 mg tablet 7.5 mg PO .bedtime #30 tabs 05/20/24 05/11/24 ondansetron 4 mg disintegrating 4 mg translingual Q6HR PRN Nausea 05/20/24 tablet / Vomiting #30 tabs pantoprazole 40 mg tablet,delayed 40 mg PO QDAC #30 tabs 05/20/24 release sennosides 8.6 mg tablet (Senna 8.6 mg PO DAILY #30 tabs 05/20/24 Lax) simethicone 80 mg chewable tablet 80 mg PO 0900,1300,1800,2100 PRN 05/20/24 Indigestion #30 tabs PHYSICAL EXAM AT DISCHARGE General Appearance: positive No acute distress and Alert; negative Anxious or Lethargic Eyes Bilateral: positive Normal inspection, PERRL and EOMI ENT: positive ENT inspection nml, Pharynx nml and No signs of dehydration Neck: positive Nml inspection, Thyroid nml and No JVD Respiratory: positive Chest non-tender, No respiratory distress and Breath sounds nml; negative Wheezes, Rales or Rhonchi Cardiovascular: positive Regular rate & rhythm, No murmur and No gallop Peripheral Pulses: positive 2+ Abdomen: positive Non-tender and Nml bowel sounds; negative Hepatomegaly or Splenomegaly Rectal: positive Other (open area of her right buttock, perirectal area of tissue that has fibrinous slough, some serous drainage) Back: positive Nml inspection Skin: positive Color nml and No rash Extremities: positive Non-tender and Full ROM Neurologic/Psychiatric: positive Oriented x3 and Mood/affect nml LABS 05/19/24 04:50 05/19/24 04:50 DIAGNOSTIC IMAGING Diagnostic Imaging Results: Final report reviewed SEPSIS Current Stage of Sepsis: Resolved QUALITY (Female Hip Fx Only) Was patient sent home on osteoporosis medication?: No FOLLOW UP Follow Up: Follow with PCP, Ciro Barragan. Follow-up with oncologist, Dr. Huertas. TIME SPENT Time Spent in Discharge (Minutes): 45 Discharge Plan Discharge Patient Disposition: [facility] DC/Xfer Condition: Stable Prescriptions: New calcium carbonate 200 mg calcium (500 mg) Tablet,Chewable 500 mg PO QID PRN (Reason: Heartburn) Qty: 30 0RF sennosides [Senna Lax] 8.6 mg Tablet 8.6 mg PO DAILY Qty: 30 0RF hydromorphone 2 mg Tablet 2 mg PO Q6HR PRN (Reason: Severe Pain (Level 7-10)) Qty: 30 0RF ondansetron 4 mg Tablet,Disintegrating 4 mg translingual Q6HR PRN (Reason: Nausea / Vomiting) Qty: 30 0RF simethicone 80 mg Tablet,Chewable 80 mg PO 0900,1300,1800,2100 PRN (Reason: Indigestion) Qty: 30 0RF pantoprazole 40 mg Tablet,Delayed Release (Dr/Ec) 40 mg PO QDAC Qty: 30 0RF Continued rosuvastatin 20 MG tablet 20 mg PO DAILY lidocaine 36 APPLIC/35.44 GM ointment 1 applic topical QID Qty: 35.44 2RF Rx Instructions: apply to area as needed acetaminophen 500 mg tablet 500 mg PO Q4H PRN (Reason: pain) Excedrin Extra Strength 250-250-65 mg tablet 1 tab PO Q4H PRN (Reason: headache) mirtazapine 7.5 mg tablet 7.5 mg PO .bedtime Qty: 30 0RF Rx Instructions: Take one tablet at bedtime for appetite and sleep Discontinued ondansetron HCl 8 mg tablet 8 mg PO TID Qty: 90 0RF prochlorperazine maleate [Compazine] 10 mg tablet 10 mg PO TID Qty: 90 0RF losartan 50 MG tablet 25 mg PO DAILY omeprazole 20 mg capsule,delayed release(DR/EC) 20 mg PO DAILY Patient Comments: take 1 capsule by mouth once daily sumatriptan succinate [Imitrex] 50 mg tablet 50 mg PO DAILY PRN (Reason: migraine headache) diphenhydramine-acetaminophen [Acetaminophen PM Extra Str] 25-500 mg tablet 1 tab PO HS PRN (Reason: pain) polyethylene glycol 3350 238 GM powder 17 g PO DAILY PRN (Reason: constipation) Rx Instructions: use while taking narcotic pain medication. Ok to obtain OTC. oxycodone 5 mg tablet 5 mg PO Q4H PRN (Reason: pain) Qty: 15 0RF Activity Restrictions: Activity as Tolerated Diet: Regular Health Concerns: You came in because you had a fever. You were found to have a urine infection, as well as a condition called febrile neutropenia, which can occur after chemotherapy. We had you on IV antibiotics for the duration of the time you are here; as such, you received antibiotics for the urinary tract infection as well as the above condition. Your white blood cell count, as well as your neutrophil count has continued to improve. You have been afebrile for over 24 hours. Overall, from infection standpoint, you are doing well. While you were here, your appetite was understandably low. We did supplement your nutrition with some peripheral nutrition through your IV. Please continue to eat as much as you can. We are very excited to see you eat the pizza and peaches and cream these last couple days. Your nutrition will be really important in playing a role in making you stronger. You have opted for no more radiation therapy. I would still like you to follow- up with your oncologist Dr. Huertas for ongoing surveillance of your cancer. Rukhsana, from palliative care has also continue to see you. Please continue to follow-up with her in the outpatient setting. I am sending some oral Dilaudid to take for pain as needed in the outpatient setting, i.e. at your SNF and at home. I would also like you to follow-up with your primary care physician, Dr. Ciro Barragan, so he is up-to-date on all your conditions. The wound care instructions are as follows: Please place lidocaine and Silvadene over entire area. Please place zinc oxide cream on open wound areas. Please place nystatin on skin folds. Please cover entire buttocks area with Xeroform. Please complete with every diaper change (3- 4 times a day). We are glad you are feeling better. We are excited that you are going to rehab. We hope you continue to feel stronger and better. Thank you for allowing us to take care of you. Best of luck. Print Language: Gambian Patient Instructions: Neutropenia, Pain Manage Ch Stand Alone Forms: SNF Discharge, PCP List Follow-up Care: Ciro Barragan MD [Credentialed Staff Provider] - Rukhsana Lopez ARNP [Provider Admit Priv/Credential] - Anuel Huertas MD [Provider Admit Priv/Credential] -"
--- NOTE | 2024-05-20 12:09 | Palliative Care ---
Vitals Vital Signs 05/11/24 13:01 05/11/24 15:04 05/11/24 17:00 05/11/24 18:22 05/11/24 18:31 05/11/24 19:31 05/11/24 20:04 05/11/24 20:05 05/12/24 01:06 05/12/24 03:05 05/12/24 03:24 05/12/24 03:47 05/12/24 04:47 05/12/24 14:00 05/12/24 16:09 05/13/24 05:29 05/13/24 10:51 05/13/24 16:24 05/13/24 22:26 05/13/24 22:40 05/14/24 01:20 05/14/24 02:21 05/14/24 02:52 05/14/24 03:30 05/14/24 14:00 05/14/24 16:06 05/14/24 17:31 05/14/24 17:58 05/14/24 18:25 05/14/24 18:28 05/14/24 18:36 05/14/24 18:39 05/14/24 18:47 05/14/24 19:15 05/15/24 00:40 05/15/24 08:38 05/15/24 13:26 05/15/24 16:02 05/16/24 01:41 05/16/24 05:45 05/16/24 14:48 05/16/24 16:08 05/17/24 00:17 05/17/24 06:00 05/17/24 10:00 05/17/24 18:36 05/18/24 01:58 05/18/24 07:32 05/18/24 09:00 05/18/24 15:33 05/18/24 19:44 05/19/24 01:24 05/19/24 06:23 05/19/24 08:24 05/19/24 15:40 05/20/24 01:31 05/20/24 05:32 05/20/24 12:16 05/20/24 18:16 Height 5 ft 1.5 in 5 ft 1 in 5 ft 1 in 5 ft 1 in Weight 192 lb 196 lb 3.382 oz 198 lb 6.656 o z 211 lb 10.3 oz 213 lb 13.574 oz 214 lb 15.211 oz 213 lb 13.574 oz 212 lb 11.937 oz 208 lb 5.389 oz 208 lb 5.389 oz BMI 40.4 39.4 BP 150/90 H 90/40 L 90/40 L 79/45 L 79/45 L 93/48 L 97/48 L 105/56 L 11 2/51 L 106/67 104/65 114/50 L 101/56 L 119/57 L 100/51 L 103/57 L 115/57 L 89/54 L 82/57 L 120/62 105/49 L 101/52 L 106/54 L 129/64 126/67 129/60 117/48 L 93/67 91/59 L 94/49 L 107/53 L 107/53 L 102/47 L 109/60 124/63 112/60 138/75 H 98/64 126/76 127/66 128/67 117/70 122/60 115/53 L 135/73 H 98/68 113/70 1 30/79 117/57 L 127/78 Respiration 18 16 18 22 15 16 18 18 14 14 14 14 18 20 18 22 14 18 16 18 14 16 16 19 18 16 20 12 12 12 12 12 16 22 16 18 20 20 16 22 19 20 20 19 16 16 19 18 20 18 Pulse 100 102 H 99 99 90 92 86 96 97 98 100 82 95 99 93 91 90 90 91 84 83 83 86 85 86 82 86 97 91 89 87 87 78 87 92 94 103 H 92 99 97 103 H 84 92 78 95 99 89 99 98 87 Temp 98.4 F 98.8 F 98.4 F 97.5 F L 97.3 F L 97.2 F L 97.2 F L 98.1 F 97.3 F L 97.3 F L 97.7 F 97.5 F L 97.9 F 97.7 F 97.3 F L 97.0 F L 97.2 F L 97 .5 F L 97.7 F 97.3 F L 97.3 F L 97.5 F L 97.3 F L 97.5 F L 97.2 F L 97.5 F L 97.7 F 97.5 F L 97.5 F L 97.5 F L 97.9 F 97.9 F 97.3 F L 97.9 F 97.3 F L 97.7 F 97.5 F L 97.3 F L 97.3 F L 97.2 F L Temp Source Oral Temporal Artery Scan Temporal Artery Scan Temporal Art madeleine Scan Temporal Artery Scan Temporal Artery Scan Temporal Artery Scan Temporal Artery Scan Temporal Artery Scan Temporal Artery Scan Temporal Artery Scan Temporal Artery Scan Temporal Artery Scan Temporal Artery Scan Temporal Arter y Scan Temporal Artery Scan Temporal Artery Scan Temporal Artery Scan Temporal Artery Scan Temporal Artery Scan Temporal Artery Scan Temporal Artery Sca n Temporal Artery Scan Temporal Artery Scan Skin Temporal Artery Scan Tempora l Artery Scan Skin Temporal Artery Scan Temporal Artery Scan Temporal Artery S can Temporal Artery Scan Temporal Artery Scan Temporal Artery Scan Temporal Artery Scan Temporal Artery Scan Temporal Artery Scan Temporal Artery Scan Pulse Oximetry 92 98 96 96 96 95 96 96 97 97 97 98 92 99 92 92 95 92 93 98 97 97 97 96 97 97 96 92 93 94 96 96 96 96 97 98 96 93 93 96 98 93 94 98 95 93 96 97 94 100 Meds/Allgy Home Medications Ambulatory Orders Medication Instructions Recorded Confirmed rosuvastatin 20 mg tablet 20 mg PO DAILY 01/19/24 05/11/24 lidocaine 5 % topical ointment 1 applic topical QID #35.44 grams 01/26/24 05/11/24 acetaminophen 500 mg tablet 500 mg PO Q4H PRN pain 04/07/24 05/11/24 [id number]-rmeqmkeknbhid-frgxgeqp 250 1 tab PO Q4H PRN headache 04/07/24 05/11/24 mg-250 mg-65 mg tablet (Excedrin Extra Strength) calcium carbonate 500 mg (2.5 x 200 mg calcium (500 05/20/24 mg)) PO QID PRN Heartburn #30 tabs hydromorphone 2 mg tablet 2 mg PO Q6HR PRN Severe Pain 05/20/24 (Level 7-10) #30 tabs mirtazapine 7.5 mg tablet 7.5 mg PO .bedtime #30 tabs 05/20/24 05/11/24 ondansetron 4 mg disintegrating 4 mg translingual Q6HR PRN Nausea 05/20/24 tablet / Vomiting #30 tabs pantoprazole 40 mg tablet,delayed 40 mg PO QDAC #30 tabs 05/20/24 release sennosides 8.6 mg tablet (Senna 8.6 mg PO DAILY #30 tabs 05/20/24 Lax) simethicone 80 mg chewable tablet 80 mg PO 0900,1300,1800,2100 PRN 05/20/24 Indigestion #30 tabs Allergies Allergies Allergy/AdvReac Type Severity Reaction Status Date / Time meperidine (From Demerol) Allergy Cramps Verified 05/11/24 13:01 CC HPI Chief Complaint Chief Complaint: Perineal/anal pain; muscle weakness, anxiety; anal cancer History Obtained From Records Reviewed: hospital records History obtained from: patient Exam Limitations: exhausted History of Present Illness HPI: Please see HPI from previous visit. This is a 83-year-old woman who has has invasive squamous cell anal carcinoma. She started definitive treatment with 2 rounds of chemotherapy, and completed 19 out of 30 radiation treatments. This was interrupted by hospital admission, for pancytopenia, fever and complications related to norovirus. He was now admitted with neutropenic fevers and sepsis, and and can pass it by her complications with her KALEE area/anal wound and pain. She has slowly began to heal heal, palliative care provided a family consult, with decision to stop radiation given the significant trauma it was causing her, and her failure to thrive. Given her deconditioned state, and significant care needs, will be transitioning to [facility] this afternoon. Patient appropriately presents with anxiety regarding this next part of the journey. She is quite exhausted and fatigued, continues to be frustrated with multiple aspects of the system and her care, and mostly with her weakened state. Palliative Care Performance Status Performance status: Patient prior to admit, had been having declining functional status, particular in the last several days. Needing maximum contact assist for ambulation. Patient has been going to daily radiation, has been quite sedentary, has had home health ordered, but unable to really participate at this point in time. Patient since hospitalization has been limited related to her perineal pain, so has had deconditioning over several weeks to months now, would benefit from support and progressive rehab program. Patient has seen PT/OT for recommendation for SNF support Palliative Care Discussion: Patient feeling overwhelmed, withdrawn, and fatigued regarding the thoughts of moving forward to her next part of her journey. She is trying to remain patient both with herself and with the situation. She appropriately is anxious regarding then transition and support on discharge. Other Findings/Comments Additional Discussion: Follow-up with son Levi later, regarding conversation with Dr. Coffey radiation oncologist. Patient has received maximum radiation for palliation, is not curative intent and most likely would not be able to revisit this given dose to the anal area. Patient will need ongoing surveillance this would be a role for surgical and oncology, will not be following up with radiation at this point. It will be an unknown as far as at what point and if risk of reoccurrence will be high. [facility] Medical History Medical History (Updated 05/20/24 @ 10:27 by La Nena Dykes MD) Anxiety and depression Fissure, anal Rosacea (07/15/22) History of torn meniscus of left knee (07/15/22) Hemorrhoids (07/15/22) Cataract, bilateral (07/15/22) Surgical History Surgical History History of tonsillectomy History of appendectomy H/O: hysterectomy Family History Family History (Updated 02/18/24 @ 13:20 by Basilio Nick CNA) Mother No problems noted. Social History Social History Smoking Status: Never smoker Second hand tobacco smoke exposure: No Do you dip or chew tobacco?: No Do you vape?: No Living arrangement: At home Marital Status: Living Condition: Alone Support Person: Yes Relationship: Living Situation Details: daughter lives nearby; providing support and transportation; son is DPOA but in [place] Level: Independent Home Mobility Equipment: Walker Do you feel safe in your home environment?: Yes Suffered physical, verbal, emotional, or financial abuse?: No ETOH Use: Wine Frequency: Daily Number of Amount/day: 2 (2 glasses of wine for dinner, last used 4 days ago) ETOH Use Details: currently not drinking with treatment Substance Use: denies use 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 POLST Status: Limited Interventions Review of Systems limited ROS Constitutional Reports: Fatigue, Weakness, Poor appetite, Weight loss and Change in sleep pattern Ears, nose, mouth, and throat Reports: Dry mouth Cardiovascular Reports: Decreased exercise tolerance Gastrointestinal Reports: Poor appetite, Feeling full early and Rectal pain Genitourinary Reports: Painful urination, Urinary frequency, Urinary urgency, Urinary incontinence and Other (periarea/rectal pain from radiation chaidez) Musculoskeletal Reports: Limited range of motion, Muscle cramps, Muscle weakness and Other (been bedbound mostly since admit) Integumentary/Breast Reports: Redness, Skin pain and Non-healing lesion Neurological Reports: General weakness, Weakness in extremities and Memory problems Psychiatric Reports: Depression, Anxiety, Mood swings, Hopelessness, Loss of interest, Irritability and Difficulty concentrating Endocrine Reports: Fatigue Hematologic/Lymphatic Reports: Anemia (received transfusion) Exam Exam Patient appears pale, fatigued, laying in bed. She is able to engage, is exhausted and anxious with pending transfer. She does appear less distressed and uncomfortable, she had just gotten depend on for transition to wheelchair and transportation expected at 1400. Impression Impression: This is an 83-year-old woman who has been hospitalized with acute sequela of her radiation and cancer treatment for anal cancer. She does present with failure to thrive, with depression, decline in functional status, and protein calorie malnutrition. She is getting support, with slow improvement here in the hospital. She is pending disharge to SNF, this is plan for bridging home for wound care and Rehab. She is appropriately anxious and expresses she is "exhausted" hoping to get some sleep. Assessment & Plan Assessment & Plan (1) Anal cancer: Code(s): C21.0 - Malignant neoplasm of anus, unspecified Plan: Follow-up with Dr. Coffey, no further follow-up needed with radiation oncology. Patient will follow-up with surgery and oncology, for further surveillance plan. Patient will benefit from regaining strength, wound healing, and returning to previous level of function prior to needing to define next steps. Patient is appropriately anxious and depressed, palliative care will plan to follow her on the outpatient side. Contact information provided to the son for resumption of palliative care on discharge from SNF Medications: New hydromorphone 2 mg PO Q6HR PRN 30 tabs 0RF Severe Pain (Level 7-10) R52 - Pain, unspecified calcium carbonate 500 mg (2.5 x 200 mg calcium (500 mg)) PO QID PRN 30 tabs 0RF Heartburn K21.9 - Gastro-esophageal reflux disease without esophagitis ondansetron 4 mg translingual Q6HR PRN 30 tabs 0RF Nausea / Vomiting C21.0 - Malignant neoplasm of anus, unspecified sennosides 8.6 mg PO DAILY 30 tabs 0RF K59.00 - Constipation, unspecified simethicone 80 mg PO 0900,1300,1800,2100 PRN 30 tabs 0RF Indigestion K21.9 - Gastro-esophageal reflux disease without esophagitis pantoprazole 40 mg PO QDAC 30 tabs 0RF K21.9 - Gastro-esophageal reflux disease without esophagitis Refilled mirtazapine Take one tablet at bedtime for appetite and sleep 7.5 mg PO .bedtime 30 tabs 0RF R63.0 - Anorexia Discontinued amoxicillin-pot clavulanate 875-125 mg Discontinued Reason: Completed therapy 1 tab PO BID 5 days 10 tabs 0RF R50.9 - Fever, unspecified oxycodone Discontinued Reason: Per Provider 5 mg PO Q4H PRN 15 tabs 0RF pain C21.0 - Malignant neoplasm of anus, unspecified triamcinolone acetonide 0.05% Apply to rash at back of hands once nightly prior to bed for no more than 2 weeks at a time, prn rash r/t chemotherapy. Discontinued Reason: Completed therapy 1 applic topical QDAY 110 grams 0RF ondansetron HCl Discontinued Reason: Per Provider 8 mg PO TID 90 tabs 0RF prochlorperazine maleate Discontinued Reason: Per Provider 10 mg PO TID 90 tabs 0RF mirtazapine Take one tablet at bedtime for appetite and sleep Discontinued Reason: Order Continued w/ Edits - Auto Stopped 7.5 mg PO .bedtime 30 tabs 2RF
[2024-05-20 12:17] VITALS: BP 127/78; TEMP 97.2; O2SAT 100
== END 2024-05-20 14:35 | DRG 871 ==
LOC: ED 12:42 → MS2 18:25
PROVIDERS: ADMIT Nurse Practitioner Acute Care; ATTEND Nurse Practitioner Acute Care